=== PATIENT | female | born 1980 | race Caucasian/White ===

== ENCOUNTER → 2019-10-02 09:25 | Outpatient (BNVA) | payer MEDICAID, SELFPAY | PROVIDERS: Family Provider Internal Medicine; PCP Internal Medicine; Visit Provider Nurse Practitioner Women's Health | DX: Z01.419 Encounter for gynecological examination (general) (routine) without abnormal findings; Z12.39 Encounter for other screening for malignant neoplasm of breast | CPT/HCPCS: 88175 ==

== ENCOUNTER → 2020-01-29 07:48 | Outpatient (BNVA) | payer MEDICAID, SELFPAY | PROVIDERS: Family Provider Internal Medicine; PCP Internal Medicine; Referring Provider Orthopaedic Surgery; Visit Provider Specialist | DX: M79.7 Fibromyalgia (principal); G24.9 Dystonia, unspecified; N62 Hypertrophy of breast; G54.0 Brachial plexus disorders | CPT/HCPCS: 87491; 87591; 87661; 99204; 99205 ==

== ENCOUNTER 2020-02-12 14:37 | Outpatient (CLI) | payer MEDICAID, SELFPAY ==
--- NOTE | 2020-02-12 14:44 | MR_ITS ---
WS: [id number] MRI brachial plexus, noncontrast. HISTORY: Fibromyalgia. Chest tightness. Multiplanar, multisequence imaging is performed through the brachial plexus. Mild straightening of the normal cervical lordosis. At C6-7 there is a focal disc protrusion centrall y which may be encroaching upon the ventral cervical cord. Mild stenosis likely. No inferior displace ment of cerebellar tonsils. No fractures. There is a symmetric appearance to the nerve roots exiting from the cervical spine and extending through the soft tissue of the upper thorax toward the extremit ies. No displacement of the nerve roots are clumped. There is no mass or signal abnormality. Just pos terior to the LEFT clavicle is a mass of mixed signal intensity measuring 12 mm. There is a soft tiss ue nodule in this location noted on a prior CT from 2016 of a similar dimension. Probably representin g a small benign lymph node. MR/MR brachialplexus wo con [id number] IMPRESSION: 1. No soft tissue mass in the region of the brachial plexus. 2. Central disc protrusion at C6-7 slightly encroaching upon the ventral cervic al cord.
== END 2020-02-12 14:38 | disposition home or self-care (01) ==
LOC: RADSHAW 14:39
PROVIDERS: Family Provider Internal Medicine; PCP Internal Medicine; Visit Provider Specialist
DX: M79.7 Fibromyalgia (principal); R07.89 Other chest pain; M50.223 Other cervical disc displacement at C6-C7 level
CPT/HCPCS: 71550; 87070; 87106; 87205

== ENCOUNTER → 2020-03-17 11:03 | Outpatient (BNVA) | payer MEDICAID, SELFPAY | PROVIDERS: Family Provider Internal Medicine; PCP Internal Medicine; Visit Provider Specialist | DX: G56.02 Carpal tunnel syndrome, left upper limb (principal); R20.0 Anesthesia of skin; R20.2 Paresthesia of skin | CPT/HCPCS: 95886; 95909; 99213 ==

== ENCOUNTER 2020-05-02 07:56 | Outpatient (CLI) | payer MEDICAID, SELFPAY ==
--- NOTE | 2020-05-02 08:02 | MM_ITS ---
WS: [id number] BILATERAL DIGITAL SCREENING MAMMOGRAPHY WITH CAD CLINICAL INFORMATION: SCREENING HISTORY: Screening mammogram. No current complaints. COMPARISON: 2018 TECHNIQUE: Bilateral CC and MLO views. FINDINGS: Scattered fibroglandular densities bilaterally. No suspicious focal mass, asymmetry, calcifications, or architectural distortion. No evidence of malignancy. MM/[place] [id number] IMPRESSION: BI-RADS: 1-Negative FOLLOW UP: 1 Year Follow-up Recommend return to annual screening mammography.
== END 2020-05-02 07:57 | disposition home or self-care (01) ==
LOC: RADSHAW 07:59
PROVIDERS: PCP Internal Medicine; Visit Provider Internal Medicine
DX: Z12.31 Encounter for screening mammogram for malignant neoplasm of breast (principal)
CPT/HCPCS: 77067

== ENCOUNTER → 2020-05-16 09:42 | Outpatient (BNVA) | payer MEDICAID, SELFPAY | PROVIDERS: PCP Internal Medicine; Visit Provider Orthopaedic Surgery | DX: Z01.812 Encounter for preprocedural laboratory examination (principal); G56.02 Carpal tunnel syndrome, left upper limb | CPT/HCPCS: 87635 ==

== ENCOUNTER 2020-05-22 05:59 | Day surgery (SDC) | payer MEDICAID, SELFPAY ==
[2020-05-21 15:33] VITALS: BMI 32.3
[2020-05-22] VITALS (7 sets, daily range): BP systolic 124–133; BP diastolic 69–94; PULSE 78–91; RESP 16–20; TEMP 36.1–36.5; O2SAT 99–100
--- NOTE | 2020-05-22 07:03 | W.PM.OPSUD ---
Surgery/Procedure H&P Update DATE OF PROCEDURE: May 22, 2020 DATE H&P PERFORMED: 05/06/20 PREOP DIAGNOSIS: Carpal tunnel syndrome left wrist PLANNED PROCEDURE: Operation Date: 05/22/20 07:50 Proposed Procedures p left Carpal Tunnel Release 05550 G56.02(Left) - Gustabo Holder MD
[2020-05-22] MEDS: sodium chloride 0.9% 1,000 ML 30 ML IV (07:10)
[2020-05-22 07:25] LABS: OR HCG Qualitative Urine Negative (Negative)
--- NOTE | 2020-05-22 07:31 | ANES.PREANE2 ---
Pre-Anesthetic Assessment Pre-Anesthetic Assessment: Height/Weight: Height 1.35 m Weight 58.513 kg Temp Pulse Resp BP Pulse Ox 97 F L 91 18 124/77 99 05/22/20 07:18 05/22/20 07:18 05/22/20 07:18 05/22/20 07:18 05/22/20 07:18 Preop Diagnosis: Carpal tunnel syndrome left wrist Proposed Procedure: Operation Date: 05/22/20 07:50 Proposed Procedures p left Carpal Tunnel Release [id number] G56.02(Left) - Gustabo Holder MD Was Beta Colleen taken within 24 hours: Yes Was Clonidine taken within 24 hours: N/A Last intake: Intake Last Liquid Date 05/21/20 Last Liquid Time 20:00 Last Solid Date 05/21/20 Last Solid Time 20:00 Social: Social History: No alcohol and No tobacco Exam: Pre-Anes Outpt Exam: alert, oriented x 3, clear to auscultation bilaterally and regular rate & rhythm Airway: Cervical ROM: Other (limited with very small mouth opening ) MP: 3 History/ROS: No significant history except as noted Pulmonary: Pulmonary: Asthma CV/HEM: CV/HEM: HTN : : None reported Hepatic: Hepatic: None reported GI: GI: GERD Musc/skel: Musc/skel: None reported Neuropsych: Neuropsych: Anxiety Anesthetic Plan: ASA status: 2 Anesthesia: Regional (specify below) Meds/Allergies Current Medications: Current Medications Generic Name Dose Route Start Last Admin Trade Name Freq PRN Reason Stop Dose Admin Sodium Chloride 1,000 mls @ 30 ml s/hr 05/22/20 06:30 05/22/20 07:10 Sodium Chloride 0.9% IV 05/23/20 06:29 30 mls/hr .Q24H ALTAGRACIA Administration PFSH Anesthesia PFSH: Medical History Accelerated essential hypertension Dwarfism Fibromyalgia Vision loss of left eye Surgical History History of myringotomy History of tonsillectomy and adenoidectomy Family History Mother Diabetes Stroke Hypertension Breast cancer mother-- dx'd at 58 y/o Family/Other Breast cancer Maternal aunt Social History Smoking and tobacco status: never smoked Alcohol intake: never Data Anesthesia Other Labs: Laboratory Results - last 48 hr 05/22/20 07:23 Urine HCG, Qual Negative Cardiac Studies: No Data to Display
[2020-05-22] MEDS: clindamycin 900 MG/50 ML PREMIX 100 MG IV (08:45)
--- NOTE | 2020-05-22 09:29 | PM.OP ---
Operative Report Date of procedure: May 22, 2020 Pre-op Diagnosis: Carpal tunnel syndrome left wrist Post-op diagnosis: same Post-op Findings: Same Procedure Done: Left carpal tunnel release Pathology: none sent Surgeon: Gustabo Holder Anesthesia: Nerve Block ([place] block) Estimated blood loss (mL): 5 Tourniquet time (min): 19 Complications: None Findings: No masses or space-occupying lesions were seen within the left carpal tunnel Condition: stable Procedure: Patient was taken to the operating room and anesthesia provided by the anesthesia service. She was prepped and draped with the arm exposed. A timeout was performed. A 3 cm long incision was made in line with the fourth ray from the distal edge of the carpal tunnel extending proximally. The subcutaneous fat and palmar fascia was divided with a scalpel blade. Under loupe magnification the ulnar neurovascular bundle was identified distally. A hemostat could be passed under the transverse carpal ligament allowing the distal 25% to be divided. A slotted guide was then passed beneath the transverse carpal ligament and the middle 50% divided. Blunt scissors were then passed over the guide freeing the proximal ligament. The tourniquet was deflated. Hemostasis provided with electrocautery. Wound edges were infiltrated with 10 cc of a half percent Marcaine solution. Skin edges were reapproximated with 3-0 Prolene. Sterile dressings were applied. The patient was taken to the recovery room in stable condition
--- NOTE | 2020-05-22 13:33 | ANE.PACU2 ---
Inpatient post-anesthesia follow up: Airway intact: Yes Vital signs: Temperature 97.5 F Pulse Rate 86 Respiratory Rate 18 Blood Pressure 126/76 Pulse Oximetry 99 Oxygen Delivery Me thod Room Air Oxygen Flow Rate Fraction of Inspir ed Oxygen Hydration adequate: Yes Nausea and vomiting: No Pain level: 2 Mental status: Baseline
== END 2020-05-22 11:03 | disposition home or self-care (01) ==
PROVIDERS: Anesthesiology; PCP Internal Medicine; Visit Provider Orthopaedic Surgery
PROC: (CPT 64721; principal; 2020-05-22 07:40)
DX: G56.02 Carpal tunnel syndrome, left upper limb (principal); I10 Essential (primary) hypertension; K21.9 Gastro-esophageal reflux disease without esophagitis; F41.9 Anxiety disorder, unspecified; M79.7 Fibromyalgia; Z82.49 Family history of ischemic heart disease and other diseases of the circulatory system; Z83.3 Family history of diabetes mellitus; Z82.3 Family history of stroke
CPT/HCPCS: 64721; 81025; 84703; J2250; J2704; J3490; J7030

== ENCOUNTER 2020-06-04 11:12 | Outpatient (CLI) | payer MEDICAID, SELFPAY | END 2020-06-04 11:13 | disposition home or self-care (01) | LOC: SPT 11:26 | PROVIDERS: PCP Internal Medicine; Visit Provider Orthopaedic Surgery | DX: Z46.89 Encounter for fitting and adjustment of other specified devices (principal); G56.02 Carpal tunnel syndrome, left upper limb | CPT/HCPCS: L3908 ==

== ENCOUNTER → 2020-06-19 12:04 | Outpatient (BNVA) | payer MEDICAID, SELFPAY | PROVIDERS: PCP Internal Medicine; Visit Provider Nurse Practitioner Women's Health | DX: N89.8 Other specified noninflammatory disorders of vagina (principal); Z30.42 Encounter for surveillance of injectable contraceptive | CPT/HCPCS: 87070; 87106; 87205 ==

== ENCOUNTER → 2020-08-19 09:46 | Outpatient (BNVA) | payer MEDICAID, SELFPAY | PROVIDERS: PCP Internal Medicine; Visit Provider Nurse Practitioner Family | DX: Z20.822 Contact with and (suspected) exposure to COVID-19 (principal) | CPT/HCPCS: 87635 ==

== ENCOUNTER → 2020-09-04 13:51 | Outpatient (BNVA) | payer MEDICAID, SELFPAY | PROVIDERS: PCP Internal Medicine; Visit Provider Nurse Practitioner Women's Health | DX: N76.3 Subacute and chronic vulvitis (principal); Z30.42 Encounter for surveillance of injectable contraceptive | CPT/HCPCS: 87070; 87106; 87205 ==

== ENCOUNTER → 2020-10-06 10:25 | Outpatient (BNVA) | payer MEDICAID, SELFPAY | PROVIDERS: PCP Internal Medicine; Visit Provider Nurse Practitioner Psychiatric/Mental Health | DX: F41.9 Anxiety disorder, unspecified (principal); F33.1 Major depressive disorder, recurrent, moderate | CPT/HCPCS: 99215 ==

== ENCOUNTER → 2020-10-28 12:13 | Outpatient (BNVA) | payer MEDICAID, SELFPAY | PROVIDERS: PCP Internal Medicine; Visit Provider Specialist | DX: G81.14 Spastic hemiplegia affecting left nondominant side (principal) | CPT/HCPCS: 99214 ==

== ENCOUNTER 2020-10-31 09:02 | Emergency (ER) | payer MEDICAID, SELFPAY ==
[2020-10-31 09:11] VITALS: BP 116/82; PULSE 120; RESP 20; TEMP 36.8; O2SAT 98; BMI 37.5
--- NOTE | 2020-10-31 09:43 | ECG_ITS ---
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1980 Requested By: Hunter Willett Order Number: [id number] Reading MD: BETHANY GRIMES Measurements Intervals [place] Rate: 105 P: 14 WA: 112 QRS: -33 QRSD: 102 T: 49 QT: 353 QTc: 467 Interpretive Statements SINUS TACHYCARDIA WITH SHORT WA INTERVAL LEFT AXIS DEVIATION [QRS AXIS < -30] INCOMPLETE RIGHT BUNDLE BRANCH BLOCK [90+ ms QRS DURATION, TERMINAL R IN V1/V2, 40+ ms S IN I/aVL/V4/V5/V6] MINIMAL ST DEPRESSION [0.025+ mV ST DEPRESSION] No previous ECG available for comparison Electronically Signed On 10-31-2020 15:40:50 CDT by BETHANY GRIMES [id number] f
--- NOTE | 2020-10-31 09:43 | XR_ITS ---
WS: [id number] Portable AP upright chest, 10/31/2020 Clinical Data: dyspnea/cough Comparison: PA and lateral chest, 09/16/2014. Findings: No nodules, masses or effusions are seen. The heart is normal. The pulmonary vascularity is not increased. No pneumonia or pneumothorax is seen. Monitor leads are on the chest wall. XR/XR chest 1V portable [id number] Impression: Negative chest.
[2020-10-31 09:54] VITALS: BP 122/91; PULSE 103; O2SAT 96
--- NOTE | 2020-10-31 09:56 | W.ED.SOB ---
HPI - SOB/Dyspnea General: Chief Complaint: Shortness of Breath/Dyspnea Stated Complaint: Difficulty breathing, Lower back pain Time Seen by Provider: 10/31/20 09:04 History of Present Illness: HPI Narrative: 40 yo female with dyposena nd midlly productive cough for the last 5-6 days. He is also complaining some low back pain worse when she coughs or takes a deep breath. She is not had any chest pain. She denies any hematuria she has had some dysuria. She also has complained of some loose stools. MD elicited complaint: shortness of breath and cough Onset (ago): day(s) (5-6) Timing: intermittent Exacerbating factors: nothing Relieving factors: nothing Associated symptoms: Reports cough, fever(s) (Subjective) and nausea; Deny abdominal pain, chest congestion, chest pain, diaphoresis, dizziness, extremity pain, hemoptysis, lightheadedness, myalgias, orthopnea, palpitations, paresthesias, polydipsia, polyuria, rash, sense of impending doom, syncope or vomiting Treatment prior to arrival: none Review of Systems Const: Reports: fever(s) (Subjective); Denies: diaphoresis ENMT: Denies: throat pain, ear or mastoid pain, nasal discharge or nasal congestion Card: Denies: chest pain, palpitations, lightheadedness, syncope or orthopnea Resp: Denies: hemoptysis or chest congestion GI: Reports: nausea; Denies: abdominal pain or vomiting : Denies: flank pain, difficulty voiding, dysuria, urinary frequency or urinary urgency Musc: Denies: extremity pain Skin/Breast: Denies: rash or pruritus Neuro: Denies: dizziness Endo: Denies: polyuria or polydipsia PFSH ED PFSH: Medical History Accelerated essential hypertension Bicornuate uterus Dwarfism Fibromyalgia Major depressive disorder, recurrent, moderate Aletta reported on her history form that she cries easily, sweating palms, fatigue, bad dreams, the mind goes blank, difficulty concentrating, trouble sleeping, easily annoyed and irritability, loss of sexual desire, loss of sexual functioning, nervous feeling, excessive worries and fears, excessive fears of crowds, and change in personality. Vision loss of left eye Surgical History History of bilateral breast reduction surgery 08/27/20 [place], [place]. Dr. Alcaraz. History of carpal tunnel surgery of left wrist 2020 - [place], [place] Dr. Holder. History of myringotomy History of tonsillectomy and adenoidectomy Family History Mother Diabetes Stroke Hypertension Breast cancer mother-- dx'd at 58 y/o Family/Other Breast cancer Maternal aunt Social History Smoking and tobacco status: never smoked Physical Exam Const: COMMON NORMALS: no acute distress GENERAL APPEARANCE: cooperative and comfortable ORIENTATION/CONSCIOUSNESS: Yes awake, Yes oriented to person, Yes oriented to place and Yes oriented to time HENMT: COMMON NORMALS: normocephalic, atraumatic, hearing grossly normal bilaterally, external ears normal, EAC's normal, TM's normal bilaterally, Normal nasal mucous membranes and turbinates present, moist oral mucous membranes and oropharynx normal HEAD & SCALP: normocephalic and atraumatic NOSE: Normal nasal mucous membranes and turbinates present EXTERNAL EAR: Yes external ears normal EXTERNAL AUDITORY CANAL: EAC's normal TYMPANIC MEMBRANE: TM's normal bilaterally Eye: COMMON NORMALS: Equal, round and reactive pupils present, EOMs intact bilaterally, conjunctivae normal and no scleral icterus CONJUNCTIVA: Yes conjunctivae normal PUPIL: Yes Equal, round and reactive pupils present Neck/C-Spine: COMMON NORMALS: full ROM, no lymphadenopathy, supple and no JVD Lymph: LYMPHATIC: no lymphadenopathy noted and no lymphedema noted Resp: COMMON NORMALS: normal respiratory effort, No retractions, No use of accessory muscles and clear to auscultation bilaterally AUSCULTATION: clear to auscultation bilaterally Cardio: COMMON NORMALS: no JVD, regular rate, regular rhythm and No murmurs present (Cardio) RATE: regular rate RHYTHM: regular rhythm GI: COMMON NORMALS: Soft to palpation and No hepatosplenomegaly present AUSCULTATION: Yes normoactive bowel sounds PALPATION: Yes Soft to palpation, No Tenderness to palpation present (GI), No Guarding due to palpation present (GI) and Yes No hepatosplenomegaly present Extremity: COMMON NORMALS: normal to inspection, capillary refill normal, no clubbing, cyanosis or edema, no calf tenderness and no pedal edema Neuro: SENSORIUM/ORIENTATION: Yes oriented to person, Yes oriented to place and Yes oriented to time Skin: COMMON NORMALS: no rashes or lesions noted GENERAL SKIN EXAM: no rashes or lesions noted Course Vital Signs: Vital signs: Vital Signs Temperature 98.3 F 10/31/20 09:11 Pulse Rate 98 10/31/20 13:08 Respiratory Rate 20 H 10/31/20 09:11 Blood Pressure 91/58 10/31/20 13:08 Pulse Oximetry 99 10/31/20 13:08 MDM - SOB/Dyspnea MDM Narrative: Medical decision making narrative: Labs imaging and EKG reviewed as on the chart. Him started on doxycycline 100 p.o. twice daily LB continue albuterol as needed she is not sending Covid PCR. Chest x-ray did not show anything acute. UA was also negative. Rapid antigen was negative. She has any worsening change symptoms return. Lab Data: Labs: Lab Results 10/31/20 10/31/20 10/31/20 09:50 09:50 09:50 WBC 11.7 10^3/uL H 10 ^3/uL (4.0-10.0) RBC 4.27 10^6/uL 10^6 /uL (4.1-5.3) Hgb 13.4 g/dL g/dL (11.5-15.3) Hct 40.0 % % (37.0-47.0) MCV 93.7 fl fl (81-99) MCH 31.4 pg pg (28.0-34.0) MCHC 33.5 g/dL g/dL (30.0-36.0) RDW 15.0 % % (12.1-15.1) Plt Count 509 10^3/cmm H 10 ^3/cmm (130-400) MPV 10.2 fL fL (7.4-10.4) Neut % (Auto) 68.9 % % Lymph % (Auto) 20.4 % % [place] % (Auto) 7.4 % % Eos % (Auto) 1.6 % % Baso % (Auto) 0.7 % % Neut # (Auto) 8.06 10^3/uL H 10 ^3/uL (1.8-7.7) Lymph # (Auto) 2.4 10^3/uL 10^3/ uL (0.8-4.8) [place] # (Auto) 0.9 10^3/uL 10^3/ uL (0.2-0.9) Eos # (Auto) 0.2 10^3/uL 10^3/ uL (0.0-0.8) Baso # (Auto) 0.1 10^3/uL 10^3/ uL (0.0-0.1) Nucleated RBC % (a uto) 0 % % Nucleated RBCs # 0.0 /100WBC /100W BC Sodium 137 mmol/L mmol/L (136-145) Potassium 3.5 mmol/L mmol/L (3.5-5.1) Chloride 101 mmol/L mmol/L (98-107) Carbon Dioxide 22 mmol/L mmol/L (22-29) Anion Gap 17.5 (5-19) BUN 13 mg/dL mg/dL (6-20) Creatinine 0.7 mg/dL mg/dL (0.5-0.9) GFR Calculation 92.2 mL/min mL/mi n (90-130) Glucose 81 mg/dL mg/dL (65-115) Calculated Osmolal ity 283 mOsm/kg L mOs m/kg (285-295) Calcium 9.4 mg/dL mg/dL (8.5-10.5) Total Bilirubin 0.4 mg/dL mg/dL (0.15-1.2) AST 17 U/L U/L (0-32) ALT 15 U/L U/L (0-33) Alkaline Phosphata se 173 IU/L H IU/L (35-105) Creatine Kinase 71 U/L U/L (26-192) Troponin T Baselin e 6 ng/L ng/L (0-10) Troponin T 120 Min [place] Delta Troponin T Total Protein 8.3 g/dL g/dL (6.6-8.7) Albumin 4.3 g/dL g/dL (3.5-5.2) Globulin 4.0 g/dL g/dL (1.3-4.6) Urine Color Urine Appearance Urine pH Ur Specific Gravit y Urine Protein Urine Glucose (UA) Urine Ketones Urine Blood Urine Nitrate Urine Bilirubin Urine Urobilinogen Ur Leukocyte Iwona ase Urine RBC Urine WBC Ur Squamous Epith Cells Amorphous Sediment Urine Bacteria 10/31/20 10/31/20 11:26 12:18 WBC RBC Hgb Hct MCV MCH MCHC RDW Plt Count MPV Neut % (Auto) Lymph % (Auto) [place] % (Auto) Eos % (Auto) Baso % (Auto) Neut # (Auto) Lymph # (Auto) [place] # (Auto) Eos # (Auto) Baso # (Auto) Nucleated RBC % (a uto) Nucleated RBCs # Sodium Potassium Chloride Carbon Dioxide Anion Gap BUN Creatinine GFR Calculation Glucose Calculated Osmolal ity Calcium Total Bilirubin AST ALT Alkaline Phosphata se Creatine Kinase Troponin T Baselin e Troponin T 120 Min [place] 6.00 ng/L ng/L (0-10) Delta Troponin T 0 ABS# ABS# (0-10) Total Protein Albumin Globulin Urine Color Straw (Yellow) Urine Appearance Clear (CLEAR) Urine pH 5 (5-7) Ur Specific Gravit y 1.005 (1.005-1.030) Urine Protein Neg (Negative) Urine Glucose (UA) Norm (Normal) Urine Ketones Negative (Negative) Urine Blood 2+ H (Negative) Urine Nitrate Negative (Negative) Urine Bilirubin Neg (Negative) Urine Urobilinogen Norm mg/dL mg/dL (Negative) Ur Leukocyte Iwona ase Negative (Negative) Urine RBC 0-4 /hpf H /hpf (0-2) Urine WBC Not Reportable Ur Squamous Epith Cells 5-10 /hpf H /hpf (0-5) Amorphous Sediment Not Reportable Urine Bacteria Not Reportable Discharge Plan Discharge Patient Disposition: Home Clinical Impression: Bronchitis Condition: Stable Prescriptions: New doxycycline hyclate 100 mg capsule 100 mg PO BID 10 Days Qty: 20 RF: 0 albuterol sulfate 90 mcg/actuation HFA aerosol inhaler 2 inh INHALATION Q4H PRN (Reason: shortness of breath or wheezing) Qty: 18 RF: 0 No Action montelukast 10 mg tablet 10 mg PO DAILY RF: 0 pregabalin [Lyrica] 150 mg capsule 150 mg PO BID RF: 0 Symbicort 80-4.5 mcg/actuation HFA aerosol inhaler 2 puff INHALATION BID RF: 0 albuterol sulfate [ProAir HFA] 90 mcg/actuation HFA aerosol inhaler 2 puff INHALATION .QID PRN RF: 0 acetaminophen-codeine 300-30 mg tablet 1 tab PO BID PRN (Reason: Pain) RF: 0 omeprazole 20 mg capsule,delayed release(DR/EC) 20 mg PO DAILY RF: 0 lisinopril-hydrochlorothiazide 10-12.5 mg tablet 1 tab PO DAILY RF: 0 duloxetine 30 mg capsule,delayed release(DR/EC) 60 mg PO DAILY Qty: 60 RF: 1 hydroxyzine pamoate 25 mg capsule 25 mg PO BID PRN (Reason: anxiety) Qty: 30 RF: 1 estradiol 0.5 mg tablet 0.5 mg PO DAILY Qty: 90 RF: 3 medroxyprogesterone 150 mg/mL syringe See Rx Instructions .ROUTE .COMPLEX Qty: 1 RF: 0 Discharge Orders: Discharge ED (Routine); Ordered 10/31/20 Ordered By: Hunter Leija Referrals: Jorge Luis Nuñez DO [Primary Care Provider] - Patient Instructions: Opioid Safety Activity Restrictions/Additional Instructions: I Covid PCR (send out test) is still pending. Start antibiotics. If you worsen or change symptoms return. Coding Level of Care Code ED [employer] Representative for [place] Fwd Exam Comprehensive
[2020-10-31 09:57] LABS: Basophils # 0.1 10^3/uL (0.0-0.1); Basophils % 0.7 %; Eosinophils # 0.2 10^3/uL (0.0-0.8); Eosinophils % 1.6 %; Hemoglobin 13.4 g/dL (11.5-15.3); Lymphocytes # 2.4 10^3/uL (0.8-4.8); Lymphocytes % 20.4 %; Mean Corpuscular HGB Conc 33.5 g/dL (30.0-36.0); Mean Corpuscular Hemoglobin 31.4 pg (28.0-34.0); Mean Corpuscular Volume 93.7 fl (81-99); Mean Platelet Volume 10.2 fL (7.4-10.4); Monocytes # 0.9 10^3/uL (0.2-0.9); Monocytes % 7.4 %; Neutrophils # 8.06 10^3/uL (1.8-7.7); Neutrophils % 68.9 %; Nucleated Red Blood Cells % 0 %; Platelet Count 509 10^3/cmm (130-400); Red Blood Count 4.27 10^6/uL (4.1-5.3); White Blood Count 11.7 10^3/uL (4.0-10.0)
[2020-10-31 10:16] LABS: Alanine Aminotransferase 15 U/L (0-33); Albumin Level 4.3 g/dL (3.5-5.2); Alkaline Phosphatase 173 IU/L (35-105); Anion Gap 17.5 (5-19); Aspartate Amino Transferase 17 U/L (0-32); Blood Urea Nitrogen 13 mg/dL (6-20); Calcium 9.4 mg/dL (8.5-10.5); Carbon Dioxide 22 mmol/L (22-29); Chloride 101 mmol/L (98-107); Creatine Phosphokinase 71 U/L (26-192); Creatinine Clr Calc Pharmacy 113.6008; Glomerular Filtration Rate 92.2 mL/min (90-130); Glucose 81 mg/dL (65-115); Osmolality Calculated 283 mOsm/kg (285-295); Potassium 3.5 mmol/L (3.5-5.1); Sodium 137 mmol/L (136-145); Total Bilirubin 0.4 mg/dL (0.15-1.2); Total Protein 8.3 g/dL (6.6-8.7)
[2020-10-31 10:17] LABS: Troponin(5th) Baseline 6 ng/L (0-10)
--- NOTE | 2020-10-31 11:43 | ECG_ITS ---
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1980 Requested By: Hunter Willett Order Number: [id number] Reading MD: BETHANY GRIMES Measurements Intervals [place] Rate: 89 P: 31 MD: 133 QRS: 76 QRSD: 99 T: 2 QT: 371 QTc: 453 Interpretive Statements SINUS RHYTHM WITH SINUS ARRHYTHMIA LOW QRS VOLTAGE IN PRECORDIAL LEADS [QRS DEFLECTION < 1.0 mV IN CHEST LEADS] INCOMPLETE RIGHT BUNDLE BRANCH BLOCK [90+ ms QRS DURATION, TERMINAL R IN V1/V2, 40+ ms S IN I/aVL/V4/V5/V6] Compared to ECG 10/31/2020 09:34:32 Low QRS voltage now present Sinus tachycardia no longer present Short MD interval no longer present Left-axis deviation no longer present ST (T wave) deviation no longer present Electronically Signed On 10-31-2020 15:42:13 CDT by BETHANY GRIMES [id number]
[2020-10-31 11:58] VITALS: BP 103/73; PULSE 93; O2SAT 97
[2020-10-31 12:25] LABS: Bilirubin Urine Neg (Negative); Blood Urine 2+ (Negative); Glucose Urine UA Norm (Normal); Ketones Urine Negative (Negative); Nitrate Urine Negative (Negative); Protein Urine Neg (Negative); Specific Gravity, Urine 1.005 (1.005-1.030); Urine Appearance Clear (CLEAR); Urine Color Straw (Yellow); pH Urine 5 (5-7)
[2020-10-31 12:26] LABS: Add Urine Culture? No; Add Urine Microscopic? YES; Leukocyte Esterase Urine Negative (Negative); RBC Urine 0-4 /hpf (0-2); Urobilinogen Urine Norm (Negative)
[2020-10-31 12:42] LABS: Troponin 5 2HR Delta 0 ABS# (0-10)
[2020-10-31 13:08] VITALS: BP 91/58; PULSE 98; O2SAT 99
[2020-11-01 19:41] LABS: Quest SARS-CoV-2 RNA NOT DETECTED (NOT DETECTED)
== END 2020-10-31 13:10 | disposition home or self-care (01) ==
PROVIDERS: Emergency Provider Family Medicine; PCP Internal Medicine
DX: J40 Bronchitis, not specified as acute or chronic (principal); I10 Essential (primary) hypertension; Z20.822 Contact with and (suspected) exposure to COVID-19
CPT/HCPCS: 71045; 80053; 81001; 82550; 84484; 85025; 87635; 93005; 99283

== ENCOUNTER → 2020-11-03 07:33 | Outpatient (BNVA) | payer MEDICAID, SELFPAY | PROVIDERS: PCP Internal Medicine; Visit Provider Nurse Practitioner Psychiatric/Mental Health | DX: F41.9 Anxiety disorder, unspecified (principal); F33.1 Major depressive disorder, recurrent, moderate; G80.9 Cerebral palsy, unspecified | CPT/HCPCS: 99213 ==

== ENCOUNTER → 2020-11-13 10:50 | Outpatient (BNVA) | payer MEDICAID, SELFPAY | PROVIDERS: PCP Internal Medicine; Referring Provider Specialist; Visit Provider Specialist | DX: G81.14 Spastic hemiplegia affecting left nondominant side (principal); G24.8 Other dystonia | CPT/HCPCS: 64642; J0585 ==

== ENCOUNTER → 2020-12-01 07:39 | Outpatient (BNVA) | payer MEDICAID, SELFPAY | PROVIDERS: PCP Internal Medicine; Visit Provider Counselor Professional | DX: F33.1 Major depressive disorder, recurrent, moderate (principal); F41.9 Anxiety disorder, unspecified; G80.9 Cerebral palsy, unspecified | CPT/HCPCS: 90834 ==

== ENCOUNTER → 2020-12-15 08:48 | Outpatient (BNVA) | payer MEDICAID, SELFPAY | PROVIDERS: PCP Internal Medicine; Visit Provider Nurse Practitioner Psychiatric/Mental Health | DX: F33.1 Major depressive disorder, recurrent, moderate (principal); F41.9 Anxiety disorder, unspecified; G80.9 Cerebral palsy, unspecified | CPT/HCPCS: 99213 ==

== ENCOUNTER → 2021-01-20 08:00 | Outpatient (BNVA) | payer MEDICAID, SELFPAY | PROVIDERS: PCP Internal Medicine; Visit Provider Counselor Professional | DX: F33.1 Major depressive disorder, recurrent, moderate (principal); F41.9 Anxiety disorder, unspecified | CPT/HCPCS: 90834 ==

== ENCOUNTER → 2021-02-09 08:04 | Outpatient (BNVA) | payer MEDICAID, SELFPAY | PROVIDERS: PCP Internal Medicine; Visit Provider Counselor Professional | DX: F33.1 Major depressive disorder, recurrent, moderate (principal); F41.9 Anxiety disorder, unspecified; G80.9 Cerebral palsy, unspecified | CPT/HCPCS: 90832 ==

== ENCOUNTER → 2021-02-23 07:49 | Outpatient (BNVA) | payer MEDICAID, SELFPAY | PROVIDERS: PCP Internal Medicine; Visit Provider Counselor Professional | DX: F33.1 Major depressive disorder, recurrent, moderate (principal); F41.9 Anxiety disorder, unspecified; G80.9 Cerebral palsy, unspecified | CPT/HCPCS: 90834 ==

== ENCOUNTER → 2021-03-05 09:15 | Outpatient (BNVA) | payer MEDICAID, SELFPAY | PROVIDERS: PCP Internal Medicine; Visit Provider Internal Medicine Pulmonary Disease | DX: Z20.822 Contact with and (suspected) exposure to COVID-19 (principal); Z01.812 Encounter for preprocedural laboratory examination | CPT/HCPCS: 87635 ==

== ENCOUNTER → 2021-03-09 07:12 | Outpatient (BNVA) | payer MEDICAID, SELFPAY | PROVIDERS: PCP Internal Medicine; Visit Provider Counselor Professional | DX: F33.1 Major depressive disorder, recurrent, moderate (principal); F41.9 Anxiety disorder, unspecified; G80.9 Cerebral palsy, unspecified | CPT/HCPCS: 90832 ==

== ENCOUNTER 2021-03-11 09:18 | Outpatient (CLI) | payer MEDICAID, SELFPAY ==
--- NOTE | 2021-03-11 11:22 | PFTS_ITS ---
Date of Study:03/11/21 Date of Dictation: 03/19/2021 MECHANICS: Postbronchodilator forced vital capacity (FVC) is reduced. Postbronchodilator forced expiratory volume in one second (FEV1) is moderately reduced 52%. FEV1/FVC is reduced. -There is no significant bronchodilator response FLOW VOLUME LOOP: Sloping of expiratory limb suggestive of severe airway obstruction LUNG VOLUMES: Total lung capacity (TLC) is normal. Residual volume (RV) is increased suggestive of moderate air trapping. DIFFUSING CAPACITY FOR CARBON MONOXIDE: Normal . INTERPRETATION: The prebronchodilator spirometry consistent with moderate obstruction. There is no significant airway obstruction. Lung volumes suggestive of moderate air trapping. There is normal gas transfer. Clinical correlation recommended. [facility]
--- NOTE | 2021-03-11 11:22 | PFTS_ITS ---
Date of Study:03/25/21 Date of Dictation: 03/25/2021 MECHANICS: Postbronchodilator forced vital capacity (FVC) is reduced. Postbronchodilator forced expiratory volume in one second (FEV1) is moderately reduced 52%. FEV1/FVC is reduced. -There is no significant bronchodilator response FLOW VOLUME LOOP: Sloping of expiratory limb suggestive of severe airway obstruction LUNG VOLUMES: Total lung capacity (TLC) is normal. Residual volume (RV) is increased suggestive of moderate air trapping. DIFFUSING CAPACITY FOR CARBON MONOXIDE: Normal . INTERPRETATION: The prebronchodilator spirometry consistent with moderate obstruction.? There is no significant airway obstruction.? Lung volumes suggestive of moderate air trapping.? There is normal gas transfer.? Clinical correlation recommended. MTDD
== END 2021-03-11 09:19 | disposition home or self-care (01) ==
PROVIDERS: PCP Internal Medicine; Visit Provider Internal Medicine Pulmonary Disease
DX: J45.909 Unspecified asthma, uncomplicated (principal); G81.14 Spastic hemiplegia affecting left nondominant side
CPT/HCPCS: 64642; 94060; 94726; 94729; J0585; J7611

== ENCOUNTER → 2021-03-17 07:26 | Outpatient (BNVA) | payer MEDICAID, SELFPAY | PROVIDERS: PCP Internal Medicine; Visit Provider Nurse Practitioner Psychiatric/Mental Health | DX: F33.1 Major depressive disorder, recurrent, moderate (principal); F41.9 Anxiety disorder, unspecified; G80.9 Cerebral palsy, unspecified | CPT/HCPCS: 99213 ==

== ENCOUNTER 2021-03-19 09:45 | Outpatient (CLI) | payer MEDICAID, SELFPAY ==
--- NOTE | 2021-03-19 10:04 | CT_ITS ---
WS: [id number] CT CHEST WITH INTRAVENOUS CONTRAST HISTORY: CHEST WALL MASS TECHNIQUE: Contiguous 5 mm axial imaging performed on the thorax. Coronal and sagittal reformats are submitted. All CT scans at [facility] use at least one of these dose optimization techniques: automated exposure control; mA and/or kV adjustment per patient size (includes targeted exams where dose is matched to clinical indication); or iterative reconstruction. CONTRAST: Omnipaque 300; 95 mL IV. DLP: 742.97 mGy.cm COMPARISON: 05/19/2015 Lungs and central airway: Normal. Pleura: Normal. No pleural effusion. Heart and pericardium: Normal size heart with no pericardial effusion. Mediastinum and luís: There is numerous small mediastinal and hilar lymph nodes. These lymph nodes ar e all less than a centimeter. Paratracheal, aortopulmonary window and hilar lymph nodes. Vessels: Normal size aortic and pulmonary artery. No coronary artery calcifications. Chest wall and lower neck: There is a large well-circumscribed soft tissue mass centered within the a nterior chest wall at the level of the inferior sternal body and xiphoid. Mass extends greatest to th e LEFT of midline. This is a well-circumscribed mass with distortion of the adjacent subcutaneous sof t tissues. Mass measures 4.7 x 8.2 and extends over length of 6.7 cm. The underlying xiphoid and ster nal body do not appear eroded or destroyed. There is not a lot of soft tissue inflammation. Upper abdomen: Hepatic steatosis. Focal area of low-attenuation in the posterior RIGHT lobe of liver measures 2.2 x 2.5 cm. There is a very small amount of peripheral lung. This may indicate a hemangiom a. This was also present on the study of 05/19/2015 and described. Not significantly increased in size . Gallbladder is negative as visualized. No adrenal mass. Osseous structures: Mild thoracic spondylosis. CT/CT chest w con* [id number] IMPRESSION: 1. Well-circumscribed subcutaneous soft tissue mass in the midline of the infe rior chest wall, level of the distal sternal body and xiphoid. Mass measures 4. 7 x 8.2 x 6.7 cm. Solid mass with no adjacent stranding or soft tissue extensio n. Consider surgical removal. Evaluation by ultrasound to evaluate for vascular ity and/or biopsy may also be performed if necessary. This has not been identif ied on prior studies. Nonspecific and may be benign or malignant. 2. Hepatic hemangioma. 3. Subcentimeter mediastinal and hilar lymph nodes.
[2021-03-19] MEDS: iohexol 300 mg/mL 100 mL Btl IV (10:21)
== END 2021-03-19 09:46 | disposition home or self-care (01) ==
PROVIDERS: PCP Internal Medicine; Visit Provider Internal Medicine
DX: R22.2 Localized swelling, mass and lump, trunk (principal); D18.09 Hemangioma of other sites
CPT/HCPCS: 71260

== ENCOUNTER → 2021-04-10 07:57 | Outpatient (BNVA) | payer MEDICAID, SELFPAY | PROVIDERS: PCP Internal Medicine; Visit Provider Surgery | DX: Z20.822 Contact with and (suspected) exposure to COVID-19 (principal); Z01.812 Encounter for preprocedural laboratory examination | CPT/HCPCS: 87635 ==

== ENCOUNTER → 2021-04-13 08:08 | Outpatient (BNVA) | payer MEDICAID, SELFPAY | PROVIDERS: PCP Internal Medicine; Visit Provider Counselor Professional | DX: F33.1 Major depressive disorder, recurrent, moderate (principal); F41.9 Anxiety disorder, unspecified; G80.9 Cerebral palsy, unspecified | CPT/HCPCS: 90832 ==

== ENCOUNTER 2021-04-16 07:55 | Day surgery (SDC) | payer MEDICAID, SELFPAY ==
[2021-04-15 14:30] VITALS: BMI 37.5
[2021-04-16] VITALS (7 sets, daily range): BP systolic 123–138; BP diastolic 84–98; PULSE 85–118; RESP 18; TEMP 36.2–36.9; O2SAT 98–100
[2021-04-16] MEDS: sodium chloride 0.9% 1,000 ML 30 ML IV (09:17)
[2021-04-16 09:20] LABS: OR HCG Qualitative Urine Negative (Negative)
--- NOTE | 2021-04-16 09:24 | ANES.PREANE2 ---
Pre-Anesthetic Assessment Height/Weight: Height 1.35 m Weight 68.039 kg Temp Pulse Resp BP Pulse Ox 97.2 F L 85 18 133/96 99 04/16/21 08:49 04/16/21 08:49 04/16/21 08:49 04/16/21 08:49 04/16/21 08:49 Preop Diagnosis: Carpal tunnel syndrome left wrist Operation Date: 04/16/21 09:40 Proposed Procedures p Excision Mass/Lesion/Cyst Upper Extremit R22.2/26057(Not Applicable) - Taco Ritter MD Familial anesthetic complications: None Was Beta Colleen taken within 24 hours: N/A Was Clonidine taken within 24 hours: N/A Last intake: Intake Last Liquid Date 04/15/21 Last Liquid Time 21:00 Last Solid Date 04/15/21 Last Solid Time 19:00 Social No alcohol and No tobacco Exam alert, oriented x 3, clear to auscultation bilaterally and regular rate & rhythm Airway Submandibular: within normal limits Cervical ROM: within normal limits Mallampati: Class II Dentition: false Pulmonary Asthma CV/HEM Hypertension GI Gastroesophageal Reflux Disease Neuropsych Anxiety and Depression CP Anesthetic Plan ASA status: 3 Anesthesia: General Risk of > 500 ml blood loss (7ml/kg in children): No Medications/Allergies Home Medications Medication Instructions Recorded Confirmed Last Taken Type albuterol sulfate 90 mcg/actuation 2 puff INHALATION .QID PRN gm 02/28/19 04/16/21 04/15/21 History aerosol inhaler (ProAir HFA) montelukast 10 mg tablet 10 mg PO DAILY 09/04/20 04/16/21 04/15/21 History omeprazole 20 mg capsule,delayed 20 mg PO DAILY 10/06/20 04/16/21 04/15/21 History release estradiol 0.5 mg tablet 0.5 mg PO DAILY #90 tab 10/14/20 04/16/21 04/15/21 Rx medroxyprogesterone 150 mg/mL 150 mg IM .EVERY 90 DAYS #1 ml 11/25/20 04/16/21 04/15/21 Rx intramuscular syringe (Depo-Provera) ipratropium 0.5 mg-albuterol 3 mg 3 ml INHALATION TID ml 11/27/20 04/16/21 04/15/21 History (2.5 mg base)/3 mL nebulization soln losartan 25 mg tablet 25 mg PO DAILY #30 tab 11/27/20 04/16/21 04/15/21 Rx hydroxyzine pamoate 25 mg capsule 25 mg PO BID PRN #30 cap 12/15/20 04/16/21 04/15/21 Rx fluticasone 500 mcg-salmeterol 50 1 inh INHALATION BID #60 ea 01/21/21 04/16/21 04/15/21 Rx mcg/dose blistr powdr for inhalation (Advair Diskus) duloxetine 60 mg capsule,delayed 60 mg PO .q am #30 cap 03/17/21 04/16/21 04/15/21 Rx release Allergies Allergy/AdvReac Type Severity Reaction Status Date / Time blackberry Allergy Unconscious Verified 03/11/21 08:52 Penicillins Allergy ALGY-Rash Verified 03/11/21 08:52 Current Medications Generic Name Dose Route Start Last Admin Trade Name Freq PRN Reason Stop Dose Admin Sodium Chloride 1,000 mls @ 30 mls/hr 04/16/21 08:45 04/16/21 09:17 Sodium Chloride 0.9% IV 04/17/21 08:44 30 mls/hr .Q24H ALTAGRACIA Administration PFS Anesthesia Medical History Accelerated essential hypertension Bicornuate uterus Dwarfism Fibromyalgia Major depressive disorder, recurrent, moderate Aletta reported on her history form that she cries easily, sweating palms, fatigue, bad dreams, the mind goes blank, difficulty concentrating, trouble sleeping, easily annoyed and irritability, loss of sexual desire, loss of sexual functioning, nervous feeling, excessive worries and fears, excessive fears of crowds, and change in personality. Psychiatric care Vision loss of left eye Surgical History History of bilateral breast [facility] Alcar[facility]. History of carpal tunnel surgery of left wrist 2020 - [facility] [place] Dr. Holder. History of myringotomy History of tonsillectomy and adenoidectomy Family History Mother Diabetes Stroke Hypertension Breast cancer mother-- dx'd at 58 y/o Family/Other Breast cancer Maternal aunt Social History Smoking and tobacco status: never smoked Second hand smoke exposure: Yes Data Anesthesia Cardiac Studies: No Data to Display
--- NOTE | 2021-04-16 09:27 | W.PM.OPSUD ---
Surgery/Procedure H&P Update DATE OF PROCEDURE: April 16, 2021 DATE H&P PERFORMED: 03/31/21 H&P UPDATE INFORMATION: No changes to prior documentation PREOP DIAGNOSIS: Subcutaneous mass of anterior chest wall. PLANNED PROCEDURE: Operation Date: 04/16/21 09:40 Proposed Procedures p Excision Mass/Lesion/Cyst chest wall R22.2 - Taco Ritter MD
--- NOTE | 2021-04-16 10:19 | PM.OP ---
Operative Report Date of procedure: April 16, 2021 Pre-op diagnosis: Preop Diagnosis Subcutaneous mass of anterior chest wall. Post-op diagnosis: Same. Procedure done: Excision of subcutaneous mass from anterior chest wall. Specimens removed/disposition: Subcutaneous mass from anterior chest wall. Surgeon: Taco Ritter Anesthesia: General (LMA.) Estimated blood loss (mL): 10 Complications: None. Condition: stable Disposition: PACU Procedure: The patient was brought in the operating room and was placed in a supine position on the operating room table. General anesthesia was induced by means of a laryngeal mask airway. The anterior surface of the chest was prepped and draped in a sterile fashion. A combination of 1% lidocaine with 1 100,000 parts epinephrine and 0.5% bupivacaine was used for local anesthesia throughout the procedure. The patient's subcutaneous chest wall mass was over the left side of the sternum extending towards the lower aspect of the left breast. An incision was made transversely across the area of the mass and the incision was extended somewhat inferolaterally along the medial aspect of the submammary scar from her breast reduction on the left side. Cautery was used to divide the subcutaneous tissue and a light-colored, fairly firm mass was encountered. It had some evidence of a desmoplastic reaction around it and so upon trying to remove this I tried include a rim of normal surrounding tissue, but in areas it very easily from the subcutaneous tissue so it was difficult to do this all the way around. In addition, it was fairly significantly adhesed to the chest wall at the left edge of the sternum and along some of the costal edges. It had also become adhesed to the anterior fascia at the subcostal musculature on the left side and so some of this fascia was removed on top of the muscle get the mass removed intact. The wound was irrigated with saline. Some small bleeding points were controlled with cautery. No other masses or other abnormal feeling tissue was present in the wound. The dermis was closed using multiple inverted interrupted sutures of 3-0 Vicryl. The skin was approximated using a running subcuticular suture of 3-0 Vicryl. Benzoin and Steri-Strips were placed over the incision and a sterile bandage followed. The patient was taken to the recovery area in stable condition postoperatively.
--- NOTE | 2021-04-16 14:47 | ANE.PACU2 ---
Inpatient post-anesthesia follow up: Airway intact: Yes Vital signs: Temperature 98.2 F Pulse Rate 100 Respiratory Rate 18 Blood Pressure 129/88 Pulse Oximetry 98 Oxygen Delivery Me thod Room Air Oxygen Flow Rate Fraction of Inspir ed Oxygen Hydration adequate: Yes Nausea and vomiting: No Pain level: 2 Mental status: Baseline
[2021-05-07 09:42] LABS: Miscellaneous Test See Scanned Lab Rpt
[2021-05-07 09:47] LABS: Miscellaneous Test See Scanned Lab Rpt
== END 2021-04-16 11:15 | disposition home or self-care (01) ==
PROVIDERS: Anesthesiology; PCP Internal Medicine; Visit Provider Surgery
PROC: (CPT 21554; principal; 2021-04-16 09:30)
DX: R22.2 Localized swelling, mass and lump, trunk (principal); M72.8 Other fibroblastic disorders; J45.909 Unspecified asthma, uncomplicated; I10 Essential (primary) hypertension; K21.9 Gastro-esophageal reflux disease without esophagitis; F41.9 Anxiety disorder, unspecified; F32.9 Major depressive disorder, single episode, unspecified; M79.7 Fibromyalgia; Z82.49 Family history of ischemic heart disease and other diseases of the circulatory system; Z83.3 Family history of diabetes mellitus; Z82.3 Family history of stroke; G47.30 Sleep apnea, unspecified
CPT/HCPCS: 21554; 81025; 84703; 88309; 88342; J0690; J1100; J1885; J2405; J2704; J3010; J3490; J7030

== ENCOUNTER → 2021-04-20 08:09 | Outpatient (BNVA) | payer MEDICAID, SELFPAY | PROVIDERS: PCP Internal Medicine; Visit Provider Internal Medicine Pulmonary Disease | DX: J45.909 Unspecified asthma, uncomplicated (principal); T78.40XA Allergy, unspecified, initial encounter; I10 Essential (primary) hypertension; F33.8 Other recurrent depressive disorders | CPT/HCPCS: 80048; 82785; 85025; 85378; 86003; 99214 ==

== ENCOUNTER 2021-04-30 12:33 | Outpatient (CLI) | payer MEDICAID, SELFPAY ==
[2021-04-30] MEDS: iohexol 350 mg/mL 100 mL Btl IV (12:51)
--- NOTE | 2021-04-30 13:00 | USCV_ITS ---
Stefano Cabezas Age: 40 Gender: F : 1980 Exam Date: 04/30/2021 13:12 Ordering Phys: Les Love MD Technologist: [place] [facility] [place]: bilat edema PROCEDURES: The venous duplex Doppler examination of both lower extremities was performed in the standard fashion. The following venous structures were evaluated: common femoral vein, profunda vein, proximal portion of the greater saphenous vein, superficial femoral vein, and the popliteal vein. In addition, the posterior tibial and peroneal trunk were evaluated. FINDINGS: Normal 2-D Doppler and augmentation and compressibility throughout the lower extremity venous structures. Additional imaging through the proximal calf veins also reveals no thrombus. Limited evaluation of the greater saphenous vein is patent with no thrombus. CONCLUSIONS No DVT bilateral lower extremities. Dr. Gabrielle Gonzalez DO (Electronically Signed) Final Date: 30 April 2021 15:42 S
--- NOTE | 2021-04-30 14:00 | CT_ITS ---
WS: [id number] CT CHEST ANGIOGRAPHY WITH REFORMATS HISTORY: rule out Pulmonary embolism TECHNIQUE: Contiguous axial images are obtained through the chest during arterial injection of intrav enous contrast. Images are reconstructed to evaluate the pulmonary arteries. MIP imaging also reviewe d. All CT scans at [facility] use at least one of these dose optimization techniques: automat ed exposure control; mA and/or kV adjustment per patient size (includes targeted exams where dose is matched to clinical indication); or iterative reconstruction. CONTRAST: Omnipaque 350; 95 mL IV. DLP: 500.57 mGy.cm COMPARISON: 03/19/2019 Excellent opacification of the pulmonary arteries. There are no filling defects. Normal size pulmonar y artery. Mildly ectatic thoracic aorta. Bilateral groundglass attenuation in part due to poor inspir ation. Mild pneumonitis not excluded. No consolidation or pneumonia. There are small mediastinal and hilar lymph nodes with the largest lymph node at the AP window measuring 11 mm. Prominent bilateral h ilar lymph nodes measuring up to 10 mm. Heart size is normal. No pericardial or pleural effusion. Again noted is a well-rounded low-attenuation mass along the anterior inferior chest wall which was r ecently described. This mass has increased in size now measuring 3.8 x 9.1 cm. Stable low-attenuation area in the RIGHT lobe of the liver is probably hemangioma. CT/CT angio chest PE protcl [id number] IMPRESSION: 1. No pulmonary embolism. 2. Mildly reactive lymphadenopathy. 3. Increase in size of the low-attenuation mass in the anterior chest wall. 4. Mild bilateral pneumonitis.
== END 2021-04-30 12:34 | disposition home or self-care (01) ==
LOC: RAD 12:34
PROVIDERS: PCP Internal Medicine; Visit Provider Internal Medicine Pulmonary Disease
DX: R06.00 Dyspnea, unspecified (principal); R59.1 Generalized enlarged lymph nodes; J18.9 Pneumonia, unspecified organism
CPT/HCPCS: 71275; 93970

== ENCOUNTER → 2021-05-04 07:54 | Outpatient (BNVA) | payer MEDICAID, SELFPAY | PROVIDERS: PCP Internal Medicine; Visit Provider Counselor Professional | DX: F33.1 Major depressive disorder, recurrent, moderate (principal); F41.9 Anxiety disorder, unspecified; G80.9 Cerebral palsy, unspecified | CPT/HCPCS: 90834 ==

== ENCOUNTER → 2021-05-25 07:54 | Outpatient (BNVA) | payer MEDICAID, SELFPAY | PROVIDERS: PCP Internal Medicine; Visit Provider Counselor Professional | DX: F33.1 Major depressive disorder, recurrent, moderate (principal); F41.9 Anxiety disorder, unspecified; G80.9 Cerebral palsy, unspecified | CPT/HCPCS: 90834 ==

== ENCOUNTER → 2021-06-09 08:42 | Outpatient (BNVA) | payer MEDICAID, SELFPAY | PROVIDERS: PCP Internal Medicine; Visit Provider Nurse Practitioner Psychiatric/Mental Health | DX: F33.1 Major depressive disorder, recurrent, moderate (principal); F41.9 Anxiety disorder, unspecified; G80.9 Cerebral palsy, unspecified | CPT/HCPCS: 99214 ==

== ENCOUNTER → 2021-06-11 07:46 | Outpatient (BNVA) | payer MEDICAID, SELFPAY | PROVIDERS: PCP Internal Medicine; Visit Provider Specialist | DX: G80.2 Spastic hemiplegic cerebral palsy (principal) | CPT/HCPCS: 64642; 99212; J0585 ==

== ENCOUNTER 2021-06-12 11:40 | Outpatient (CLI) | payer MEDICAID, SELFPAY ==
--- NOTE | 2021-06-12 11:46 | USCV_ITS ---
Stefano Cabezas Age: 41 Gender: F : 1980 Exam Date: 06/12/2021 12:21 Ordering Phys: Les Love MD Technologist: TENZIN [place] [facility] [place]: Dysnpea BP: 142 / 99 HR: 95 Rhythm: Sinus Technical Quality: Adequate MEASUREMENTS (Male / Female) Normal Values 2D ECHO LV Diastolic Diameter PLAX 4.3 cm 4.2 - 5.9 / 3.9 - 5.3 cm LV Systolic Diameter PLAX 2.8 cm IVS Diastolic Thickness 1.1 cm 0.6 - 1.0 / 0.6 - 0.9 cm IVS Systolic Thickness 1.6 cm LVPW Diastolic Thickness 1.2 cm 0.6 - 1.0 / 0.6 - 0.9 cm LVPW Systolic Thickness 1.5 cm LVOT Diameter 2.0 cm LV Ejection Fraction 2D Teich 64.1 % LV Ejection Fraction MOD 2C 65.9 % LV Ejection Fraction 2C AL 66.7 % LA Diameter 2.3 cm LA Width 2.7 cm LA Height 3.8 cm RA Width 2.2 cm RA Height 3.7 cm Aorta at Sinotubular Diameter 2.0 cm M-MODE Aortic Annulus Diameter 2.9 cm LA Ao Ratio MM 0.8 MV E Point Septal Separation 0.6 cm DOPPLER AV Peak Velocity 147.3 cm/s LVOT Peak Velocity 109.0 cm/s AV Area Cont Eq vti 2.5 cm squared AV Area Cont Eq pk 2.4 cm squared MV Peak Velocity 121.0 cm/s MV Area PHT 3.1 cm squared Mitral E to A Ratio 0.9 MV E' Velocity 55.5 cm/s Mitral E to MV E' Ratio 11.2 Mitral E to LV E' Lateral Ratio 10.1 Mitral E to LV E' Septal Ratio 12.6 TR Peak Velocity 172.1 cm/s TR Peak Gradient 11.8 mmHg TR Mean Velocity 133.6 cm/s TR Mean Gradient 7.3 mmHg TR Velocity Time Integral 34.0 cm TV Peak E Velocity 40.0 cm/s Right Atrial Pressure 3.0 mmHg Pulmonary Artery Systolic Pressu 14.8 mmHg PV Peak Velocity 88.0 cm/s RV Acceleration Time 0.1 s RV Ejection Time 0.3 s RV AcT/ET 0.4 FINDINGS Left Ventricle Normal left ventricular size and systolic function, EF 69 %. No regional wall motion abnormalities. Mild left ventricular hypertrophy. Grade I/IV diastolic dysfunction (abnormal relaxation filling pattern), normal to mildly elevated filling pressures. Right Ventricle The right ventricle is normal in size and function. Right Atrium The right atrium is normal in size. Left Atrium The left atrium is normal in size. Mitral Valve No gross abnormalities noted Aortic Valve No gross abnormalities noted Tricuspid Valve Trace tricuspid valve regurgitation. Estimated pulmonary artery peak systolic pressure 15 mmHg Pulmonic Valve No gross abnormalities noted Pericardium Normal pericardium without effusion. Aorta Normal ascending aorta dimension. CONCLUSIONS Normal left ventricular size and systolic function, EF 69 %. No regional wall motion abnormalities. Mild left ventricular hypertrophy. Grade I/IV diastolic dysfunction (abnormal relaxation filling pattern), normal to mildly elevated filling pressures. Trace tricuspid valve regurgitation. Estimated pulmonary artery peak systolic pressure 15 mmHg. Normal cardiac chamber sizes. No significant stenotic or regurgitant lesions There is no pericardial effusion. There are no intracardiac masses. Compared to the study from 11/21/2015, there may not be a significant change Dr Mushtaq Fatima MD FACC (Electronically Signed) Final Date: 12 Jun 2021 19:35 S
== END 2021-06-12 11:41 | disposition home or self-care (01) ==
LOC: RAD 11:41
PROVIDERS: PCP Internal Medicine; Visit Provider Internal Medicine Pulmonary Disease
DX: R06.00 Dyspnea, unspecified (principal); J45.909 Unspecified asthma, uncomplicated; T78.40XA Allergy, unspecified, initial encounter; I51.7 Cardiomegaly
CPT/HCPCS: 93306

== ENCOUNTER → 2021-06-18 12:57 | Outpatient (BNVA) | payer MEDICAID, SELFPAY | PROVIDERS: PCP Internal Medicine; Visit Provider Counselor Professional | DX: F33.1 Major depressive disorder, recurrent, moderate (principal); F41.9 Anxiety disorder, unspecified; G80.9 Cerebral palsy, unspecified | CPT/HCPCS: 90834 ==

== ENCOUNTER → 2021-06-22 08:53 | Outpatient (BNVA) | payer MEDICAID, SELFPAY | PROVIDERS: PCP Internal Medicine; Visit Provider Internal Medicine Pulmonary Disease | DX: R06.00 Dyspnea, unspecified (principal); J45.909 Unspecified asthma, uncomplicated; T78.40XA Allergy, unspecified, initial encounter | CPT/HCPCS: 99213; 99214 ==

== ENCOUNTER → 2021-07-02 08:51 | Outpatient (BNVA) | payer MEDICAID, SELFPAY | PROVIDERS: PCP Internal Medicine; Visit Provider Counselor Professional | DX: F33.1 Major depressive disorder, recurrent, moderate (principal); F41.9 Anxiety disorder, unspecified; G80.9 Cerebral palsy, unspecified | CPT/HCPCS: 90834 ==

== ENCOUNTER → 2021-07-23 11:00 | Outpatient (BNVA) | payer MEDICAID, SELFPAY | PROVIDERS: PCP Internal Medicine; Visit Provider Counselor Professional | DX: F33.1 Major depressive disorder, recurrent, moderate (principal); F41.9 Anxiety disorder, unspecified; G80.9 Cerebral palsy, unspecified | CPT/HCPCS: 90834 ==

== ENCOUNTER → 2021-08-23 11:59 | Outpatient (BNVA) | payer MEDICAID, SELFPAY | PROVIDERS: PCP Internal Medicine; Visit Provider Family Medicine | DX: Z20.822 Contact with and (suspected) exposure to COVID-19 (principal); J06.9 Acute upper respiratory infection, unspecified | CPT/HCPCS: 87635 ==

== ENCOUNTER 2021-09-07 14:25 | Outpatient (CLI) | payer MEDICAID, SELFPAY ==
--- NOTE | 2021-09-07 14:32 | MR_ITS ---
WS: [id number] MRI BRAIN WITH HIGH-RESOLUTION IMAGING THROUGH THE INTERNAL AUDITORY CANALS WITHOUT AND WITH CONTRAST HISTORY: SENSORINEURAL HEARING LOSS, BILATERAL COMPARISON: 07/25/2012 TECHNIQUE: Multiplanar, multisequence imaging is performed through the brain. Additional 3 mm imaging performed in multiple planes through the internal auditory canal. Postcontrast imaging with 13 ml's of MultiHance. No acute intracranial hemorrhage, midline shift, edema or mass effect. Very minimal small vessel ischemic disease. Slightly greater in the RIGHT parietal lobe. Ventricles a re normal size. No inferior displacement of cerebellar tonsils. No prior infarct. No hemorrhage. Ventricles and extra-axial spaces are normal. No inferior displacement of cerebellar tonsils. Clivus and pituitary gland are normal. There is a small enhancing mass along the RIGHT planum sphenoidale. Mass measures 4.6 x 4.1 mm and wa s not present on the prior examination. Favor this is probably a small meningioma. I do believe there is a dural tail. No adjacent edema. Internal and external auditory canals: Unremarkable. Cranial nerves VII and VIII complexes: Unremarkable. No enhancement or mass. Cerebellopontine angles: Normal. Paranasal sinuses: Normal. Mastoid air cells: Normal. Calvarium and scalp: Normal. Visualized [place] and dural venous sinuses demonstrate no abnormality. MR/MR iac's wo/w con* [id number] IMPRESSION: 1. No mass or abnormal enhancement at the cerebellopontine angle or internal a uditory canals. 2. New 4.6 x 4.1 mm enhancing mass along the RIGHT planum sphenoidale. Favor t his is probably a meningioma. As this is very difficult to completely character ize due to its small size recommend follow-up MRI brain with and without contra st in 3-4 months to document stability. This was not evident on the prior MRI.
[2021-09-07] MEDS: gadobenate dimeglumine 20 mL vial IV (15:51)
== END 2021-09-07 14:26 | disposition home or self-care (01) ==
LOC: RAD 14:26
PROVIDERS: PCP Internal Medicine; Visit Provider Specialist
DX: H90.3 Sensorineural hearing loss, bilateral (principal)
CPT/HCPCS: 70553

== ENCOUNTER 2021-09-12 09:00 | Emergency (ER) | payer MEDICAID, SELFPAY ==
[2021-09-12 09:07] VITALS: BP 127/81; PULSE 109; RESP 18; TEMP 36.8; O2SAT 99; BMI 33.7
[2021-09-12 09:11] VITALS: BP 108/70; PULSE 113; RESP 15; O2SAT 99
--- NOTE | 2021-09-12 09:21 | XRR_ITS ---
PROCEDURE INFORMATION: Exam: XR Chest Exam date and time: 09/12/2021 9:36 AM Age: 41 years old Clinical indication: Left-sided; Prior surgery; Surgery type: Mass removed; Patient HX: Left sided chest pain since mowing yesterday; Additional info: L chest pain TECHNIQUE: Imaging protocol: Radiologic exam of the chest. Views: 1 view. COMPARISON: CT chest w con* [id number] 03/19/2021 10:19 AM FINDINGS: Lungs: The lung parenchyma is clear. Pleural spaces: No pneumothorax. No pleural effusion. Heart/Mediastinum: The cardiomediastinal silhouette is within normal limits. Bones/joints: Unremarkable. XR/XR chest 1V portable [id number] IMPRESSION: No acute cardiopulmonary abnormality.
--- NOTE | 2021-09-12 09:22 | ED_ITS ---
HPI - Chest Pain General: Chief Complaint: General Medical Stated Complaint: Throat hurts and chest walters Time Seen by Provider: 09/12/21 09:03 Source: patient Mode of arrival: ambulatory Limitations: no limitations History of Present Illness: Patient is a 41-year-old female who presents to ED today with a complaint of left-sided chest burning and a sore throat. Patient tells me she feels like the chest burning started yesterday after push mowing her yard and it seems to be worse with palpation of the chest wall and movements. She does tell me she feels short of breath. She was seen on 08/[address] Garcia at [facility] for this complaint. She had a negative PCR COVID performed. Patient states she has continued to feel short of breath. She does have a history of asthma and seasonal allergies. She reports she had an anterior chest wall mass removed on 04/2021 of this year by Dr. Ritter. She is not having any cough or URI-like symptoms. Last echocardiogram was performed 06/2021 which showed an EF of 69%. She is not having any difficulty swallowing. Denies neck pain. MD complaint: chest pain Onset (ago): day(s) Onset: during exertion Pain location: left chest Pain radiation: none Quality: other (burning) Exacerbating factors: exertion, palpation and movement Associated symptoms: Reports dyspnea; Deny abdominal pain, fever(s), nausea, palpitations, syncope or vomiting Treatment prior to arrival: none Related Data: On Oral Contraceptives: No Review of Systems Const: Denies: fever(s), chills, body aches, fatigue or malaise Eyes: Denies: change in vision, blurry vision, blind spots, photophobia, floaters or seeing flashes ENMT: Reports: throat pain; Denies: uvular edema, enlarged tonsils, odynophagia, hoarseness, mouth pain, or al sores, ear or mastoid pain, nasal discharge, nasal congestion, post nasal drip or sinus pain Card: Reports: chest pain and dyspnea on exertion; Denies: palpitations, irregular heart rhythm, edema, swelling of feet/ankles, lightheadedness, syncope, pre-syncope, orthopnea, leg pain with exertion or acrocyanosis Resp: Reports: dyspnea; Denies: productive cough, non-productive cough, wheezing, pain on inspiration, hemoptysis or chest congestion GI: Denies: abdominal pain, nausea, vomiting or diarrhea Musc: Denies: neck pain, back pain, extremity pain or joint pain Skin/Breast: Denies: rash Neuro: Denies: headache(s), numbness in extremities, weakness in extremities or sensory changes PFS ED PFSH: Medical History Accelerated essential hypertension 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 Psychiatric care Vision loss of left eye Surgical History History of bilateral breast reduction surgery 08/27/20 [place], [place]. Dr. Alcaraz. History of carpal tunnel surgery of left wrist 2020 - [place], [place] Dr. Holder. History of myringotomy History of tonsillectomy and adenoidectomy Family History Mother Diabetes Stroke Hypertension Breast cancer mother-- dx'd at 58 y/o Family/Other Breast cancer Maternal aunt Social History Smoking and tobacco status: never smoked Second hand smoke exposure: Yes Physical Exam Const: COMMON NORMALS: no acute distress, patient oriented x3, no limitations, alert and well nourished GENERAL APPEARANCE: cooperative ORIENTATION/CONSCIOUSNESS: Yes awake, Yes oriented to person, Yes oriented to place and Yes oriented to time HENMT: COMMON NORMALS: normocephalic and atraumatic HEAD & SCALP: normal to inspection, normocephalic and atraumatic FACE & SINUS: normal facial exam MOUTH: Normal oral and palatal mucosa present, lip normal and tongue normal THROAT: posterior oropharynx normal, tonsils normal and uvula midline; no uvular edema Eye: GENERAL EYE: appearance normal, both eyes and all related structures Neck/C-Spine: COMMON NORMALS: full ROM, no lymphadenopathy and no meningeal signs GENERAL: Yes normal visual inspection, No anterior neck swelling and No submandibular swelling Chest: CHEST: Yes Surgical scars present (Chest) OTHER: TTP L anterior chest; scar present from previous subcutaneous mass excision Resp: COMMON NORMALS: normal respiratory effort and clear to auscultation bilaterally AUSCULTATION: clear to auscultation bilaterally Cardio: COMMON NORMALS: regular rhythm RATE: tachycardic RHYTHM: regular rhythm GI: COMMON NORMALS: Normal to inspection, nondistended, normoactive bowel sounds present, Soft to palpation and non-tender PALPATION: Yes Soft to palpation Back/Pelvis: COMMON NORMALS: thoracic and lumbar spine normal to inspection, no thoracic nor lumbar tenderness and thoraco-lumbar ROM normal Extremity: COMMON NORMALS: normal to inspection, full ROM, capillary refill n ormal, no joint enlargement, no clubbing, cyanosis or edema, no calf tenderness and no pedal edema GENERAL: Yes normal exam except as noted Neuro: GREER COMA SCALE: document GCS findings Greer coma scale eye opening: Spontaneous Derwent coma scale verbal response: Orientated Greer coma scale motor response: Obey commands Greer coma scale total score: 15 COMMON NORMALS: patient oriented x3, moves all extremities, no focal motor deficits, no sensory deficits noted and gait normal SENSORIUM/ORIENTATION: Yes alert, Yes oriented to person, Yes oriented to place and Yes oriented to time MENINGEAL SIGNS: Yes no meningeal signs Skin: COMMON NORMALS: no rashes or lesions noted GENERAL SKIN EXAM: no rashes or lesions noted Course Vital Signs: Vital signs: Vital Signs Temperature 98.2 F 09/12/21 09:07 Pulse Rate 109 H 09/12/21 09:07 Respiratory Rate 18 09/12/21 09:07 Blood Pressure 127/81 09/12/21 09:07 Pulse Oximetry 99 09/12/21 09:07 Oxygen Delivery Me thod 09/12/21 09:07 [facility] - Chest Pain Medical Decision Making Patient here with reproducible pain over left anterior chest wall that began after push mowing her yard yesterday. She was noted to be tachycardic upon a rrival. Blood work including a d-dimer and troponin as well as a CXR performed on today's visit. Blood work is unremarkable. She is mildly low potassium at 3.0. She was given oral replacement for this. Mag is normal. Her d-dimer and troponin are negative. EKG without ischemic changes. Her CXR is normal. She has an up-to-date echocardiogram. Recommend follow-up with Dr. Nuñez next week for re-evaluation. Strict return ED precautions given. Lab Data : 09/12/21 09:30 09/12/21 09:30 Radiology Impressions Chest X-Ray 09/12/21 09:21 IMPRESSION: No acute cardiopulmonary abnormality. Laboratory Results WBC 11.5 10^3/uL (4.0-10.0) H 09/12/21 09:30 RBC 4.39 10^6/uL (4.1-5.3) 09/12/21 09:30 Hgb 13.9 g/dL (11.5-15.3) 09/12/21 09:30 Hct 41.8 % (37.0-47.0) 09/12/21 09:30 MCV 95.2 fl (81-99) 09/12/21 09:30 MCH 31.7 pg (28.0-34.0) 09/12/21 09:30 MCHC 33.3 g/dL (30.0-36.0) 09/12/21 09:30 RDW 15.2 % (12.1-15.1) H 09/12/21 09:30 Plt Count 494 10^3/cmm (130-400) H 09/12/21 09:30 MPV 10.0 fL (7.4-10.4) 09/12/21 09:30 Neut % (Auto) 69.8 % 09/12/21 09:30 Lymph % (Auto) 19.8 % 09/12/21 09:30 [place] % (Auto) 7.6 % 09/12/21 09:30 Eos % (Auto) 1.1 % 09/12/21 09:30 Baso % (Auto) 0.7 % 09/12/21 09:30 Neut # (Auto) 8.00 10^3/uL (1.8-7.7) H 09/12/21 09:30 Lymph # (Auto) 2.3 10^3/uL (0.8-4.8) 09/12/21 09:30 [place] # (Auto) 0.9 10^3/uL (0.2-0.9) 09/12/21 09:30 Eos # (Auto) 0.1 10^3/uL (0.0-0.8) 09/12/21 09:30 Baso # (Auto) 0.1 10^3/uL (0.0-0.1) 09/12/21 09:30 Nucleated RBC % (auto) 0 % 09/12/21 09:30 Nucleated RBCs # 0.0 /100WBC 09/12/21 09:30 D-Dimer 0.45 ug/mIFEU (0-0.59) 09/12/21 09:30 Sodium 139 mmol/L (136-145) 09/12/21 09:30 Potassium 3.0 mmol/L (3.5-5.1) L 09/12/21 09:30 Chloride 102 mmol/L (98-107) 09/12/21 09:30 Carbon Dioxide 22 mmol/L (22-29) 09/12/21 09:30 Anion Gap 18.0 (5-19) 09/12/21 09:30 BUN 5 mg/dL (6-20) L 09/12/21 09:30 Creatinine 0.6 mg/dL (0.5-0.9) 09/12/21 09:30 GFR Calculation 109.6 mL/min (90-130) 09/12/21 09:30 Glucose 92 mg/dL (65-115) 09/12/21 09:30 Calculated Osmolality 285 mOsm/kg (285-295) 09/12/21 09:30 Calcium 9.7 mg/dL (8.5-10.5) 09/12/21 09:30 Magnesium 1.9 mg/dL (1.7-2.3) 09/12/21 09:30 Total Bilirubin 0.9 mg/dL (0.15-1.2) 09/12/21 09:30 AST 21 U/L (0-32) 09/12/21 09:30 ALT 21 U/L (0-33) 09/12/21 09:30 Alkaline Phosphatase 159 IU/L (35-105) H 09/12/21 09:30 Troponin T Baseline 9 ng/L (0-10) 09/12/21 09:30 Total Protein 8.0 g/dL (6.6-8.7) 09/12/21 09:30 Albumin 4.6 g/dL (3.5-5.2) 09/12/21 09:30 Globulin 3.4 g/dL (1.3-4.6) 09/12/21 09:30 Discharge Plan Discharge Patient Disposition: Home Clinical Impression: Left-sided chest wall pain, Hypokalemia Condition: Stable Prescriptions: No Action montelukast 10 mg tablet 10 mg PO DAILY albuterol sulfate [ProAir HFA] 90 mcg/actuation HFA aerosol inhaler 2 puff INHALATION .QID PRN omeprazole 20 mg capsule,delayed release(DR/EC) 20 mg PO DAILY ipratropium-albuterol 0.5 mg-3 mg(2.5 mg base)/3 mL solution for nebulization 3 ml inhalation TID losartan 25 mg tablet 25 mg PO DAILY Qty: 30 3RF buspirone 15 mg tablet 15 mg PO BID Qty: 30 2RF Rx Instructions: For three days:Take 1/2 tablet morning and evening, then increase to one tablet morning and evening duloxetine 60 mg capsule,delayed release(DR/EC) 60 mg PO .q am Qty: 30 1RF Rx Instructions: Take one capsule every morning hydroxyzine pamoate 25 mg capsule 50 mg PO BID PRN (Reason: anxiety) Qty: 60 3RF Rx Instructions: Take one or two capsules twice a day, if needed for anxiety, 4 to 6 hours apart multivitamin [One-A-Day Essential] Tablet 1 tab PO DAILY medroxyprogesterone 150 mg/mL syringe 150 mg IM Bevespi Aerosphere 9-4.8 mcg HFA aerosol inhaler 2 puff inhalation BID Qty: 10.7 5RF Flovent HFA 110 mcg/actuation HFA aerosol inhaler 2 puff inhalation BID Qty: 12 5RF Discharge Orders: Discharge ED (Routine); Ordered 09/12/21 Ordered By: Sangita Rudolph Referrals: Jorge Luis Nuñez DO [Primary Care Provider] - Activity Restrictions/Additional Instructions: Please follow-up with your primary care provider Dr. Nuñez next week for re- evaluation. You may return to the emergency department for worsening chest pa in, shortness of breath, difficulty breathing. Your potassium was mildly low here. You were given oral replacement. Please speak to Dr. Nuñez to see if he would like to recheck this during your follow up visit. Coding Level of Care Code ED Mascara Molder for Chg Fwd Exam Comprehensive
--- NOTE | 2021-09-12 09:31 | ECG_ITS ---
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 Measurements Intervals [place] Rate: 112 P: 63 ND: 131 QRS: 94 QRSD: 81 T: 24 QT: 347 QTc: 476 Interpretive Statements SINUS TACHYCARDIA BORDERLINE RIGHT AXIS DEVIATION [QRS AXIS > 90] POSSIBLE RIGHT VENTRICULAR CONDUCTION DELAY [RSR (QR) IN V1/V2] ABNORMAL RHYTHM ECG Compared to ECG 10/31/2020 12:07:32 Sinus rhythm no longer present Sinus arrhythmia no longer present Incomplete right bundle-branch block no longer present Electronically Signed On 09-12-2021 18:57:35 CDT by Mushtaq Fatima M.D. [id number]
[2021-09-12 09:41] LABS: Basophils # 0.1 10^3/uL (0.0-0.1); Basophils % 0.7 %; Eosinophils # 0.1 10^3/uL (0.0-0.8); Eosinophils % 1.1 %; Hematocrit 41.8 % (37.0-47.0); Hemoglobin 13.9 g/dL (11.5-15.3); Lymphocytes # 2.3 10^3/uL (0.8-4.8); Lymphocytes % 19.8 %; Mean Corpuscular HGB Conc 33.3 g/dL (30.0-36.0); Mean Corpuscular Hemoglobin 31.7 pg (28.0-34.0); Mean Corpuscular Volume 95.2 fl (81-99); Monocytes # 0.9 10^3/uL (0.2-0.9); Monocytes % 7.6 %; Neutrophils % 69.8 %; Nucleated Red Blood Cells % 0 %; Platelet Count 494 10^3/cmm (130-400); Red Blood Count 4.39 10^6/uL (4.1-5.3); Red Cell Distribution Width 15.2 % (12.1-15.1); White Blood Count 11.5 10^3/uL (4.0-10.0)
[2021-09-12 09:58] LABS: D Dimer 0.45 ug/mIFEU (0-0.59)
[2021-09-12 10:06] LABS: Alanine Aminotransferase 21 U/L (0-33); Albumin Level 4.6 g/dL (3.5-5.2); Alkaline Phosphatase 159 IU/L (35-105); Aspartate Amino Transferase 21 U/L (0-32); Blood Urea Nitrogen 5 mg/dL (6-20); Calcium 9.7 mg/dL (8.5-10.5); Carbon Dioxide 22 mmol/L (22-29); Chloride 102 mmol/L (98-107); Globulin 3.4 g/dL (1.3-4.6); Glomerular Filtration Rate 109.6 mL/min (90-130); Glucose 92 mg/dL (65-115); Osmolality Calculated 285 mOsm/kg (285-295); Sodium 139 mmol/L (136-145); Total Bilirubin 0.9 mg/dL (0.15-1.2); Troponin(5th) Baseline 9 ng/L (0-10)
[2021-09-12] MEDS: potassium chloride ER 20 mEq Tablet 60 MEQ PO (10:51)
[2021-09-12 10:53] LABS: Magnesium 1.9 mg/dL (1.7-2.3)
== END 2021-09-12 11:10 | disposition home or self-care (01) ==
PROVIDERS: Emergency Provider Physician Assistant; PCP Internal Medicine
DX: R07.89 Other chest pain (principal); E87.6 Hypokalemia; E34.3 Short stature due to endocrine disorder; Z77.22 Contact with and (suspected) exposure to environmental tobacco smoke (acute) (chronic)
CPT/HCPCS: 71045; 80053; 83735; 84484; 85025; 85378; 93005; 99285

== ENCOUNTER → 2021-09-17 14:27 | Outpatient (BNVA) | payer MEDICAID, SELFPAY | PROVIDERS: PCP Internal Medicine; Visit Provider Specialist | DX: G81.14 Spastic hemiplegia affecting left nondominant side (principal) | CPT/HCPCS: 64642; J0585 ==

== ENCOUNTER → 2021-09-24 09:47 | Outpatient (BNVA) | payer MEDICAID, SELFPAY | PROVIDERS: PCP Internal Medicine; Visit Provider Internal Medicine Pulmonary Disease | DX: R06.00 Dyspnea, unspecified (principal); T78.40XA Allergy, unspecified, initial encounter; J45.998 Other asthma; Z98.890 Other specified postprocedural states | CPT/HCPCS: 99214 ==

== ENCOUNTER 2021-11-05 13:36 | Outpatient (CLI) | payer MEDICAID, SELFPAY ==
--- NOTE | 2021-11-05 13:44 | MM_ITS ---
WS: [id number] VIEWS: MLO and CC views both breasts. 3D digital tomosynthesis is also included in this exam. Comparison made with prior exam of 09/22/2015, 06/08/2018, 05/02/2020.. Findings: There was no sign of mass, architectural distortion or suspicious calcification in either breast. Jeremy ateral breast reduction since prior study. Scattered fibroglandular densities MM/[place] [id number] Impression: BI-RADS: 2-Benign FOLLOW-UP: 1 Year Follow-up This mammogram was also analyzed by the Computer Aided Detection System R2 Imag e On Car Supervisor.
== END 2021-11-05 13:37 | disposition home or self-care (01) ==
LOC: RAD 13:37
PROVIDERS: PCP Internal Medicine; Visit Provider Internal Medicine
DX: Z12.31 Encounter for screening mammogram for malignant neoplasm of breast (principal)
CPT/HCPCS: 77063; 77067

== ENCOUNTER 2021-11-18 09:16 | Outpatient (CLI) | payer MEDICAID, SELFPAY ==
--- NOTE | 2021-11-18 | CT_ITS ---
WS: [id number] CT ABDOMEN AND PELVIS WITH CONTRAST HISTORY: RUQ PAIN TECHNIQUE: Imaging performed of the abdomen and pelvis with IV contrast. Dual phase imaging of the a bdomen. Coronal and sagittal reformats are submitted. All CT scans at [facility] use at least one of these dose optimization techniques: automated exposure control; mA and/or kV adjustment per p atient size (includes targeted exams where dose is matched to clinical indication); or iterative monserrat nstruction. IV CONTRAST: Omnipaque 350; 80 mL IV. Oral contrast: No DLP: 1331.99 mGy.cm COMPARISON: Prior CT of 12/14/2016 and 04/30/2021. Lower thorax: Lung bases are clear. Heart is normal size. No hiatal hernia. Liver/biliary system: Normal size liver. Hypoechoic mass in the posterior superior RIGHT lobe the nika er measures 2.3 x 2.1 cm and begins to fill and on a delayed image. This has been previously describe d and thought to be a hemangioma. No adjacent hemorrhage. Gallbladder: Normal. No gallstones or wall thickening. No pericholecystic fluid. Pancreas: Normal size pancreas and pancreatic duct. No adjacent inflammation. Spleen: Normal size spleen. No mass or infarct. Adrenal glands: Normal. Right kidney: Normal. Left kidney: Normal. Aorta: Normal. Lymphadenopathy: None. Free fluid: None. GI tract: Nondistended stomach. No small bowel obstruction. No colon obstruction. The appendix is nor mal. No colon obstruction. Abdominal wall: Unremarkable abdominal wall. No hernia. Pelvis: No free fluid or adenopathy within the pelvis. Uterus is midline. Very slightly globular appe arance of the uterus. Focal increased enhancement towards the fundus. Could be an area of adenomyosis . No adnexal masses. Bones: LEFT curvature lumbar spine. CT/CT abdomen pelvis w con* [id number] IMPRESSION: 1. Long-term stability hemangioma in the posterior RIGHT lobe of the liver. 2. Normal gallbladder. 3. No adenopathy or ascites. 4. Subtle area of enhancement within the fundal myometrium may be a small fibr oid or adenomyosis. For further evaluation transvaginal pelvic ultrasound may b e of value.
[2021-11-18] MEDS: iohexol 350 mg/mL 100 mL Btl IV (10:18)
== END 2021-11-18 09:17 | disposition home or self-care (01) ==
PROVIDERS: PCP Internal Medicine; Visit Provider Internal Medicine
DX: R10.11 Right upper quadrant pain (principal); D18.09 Hemangioma of other sites
CPT/HCPCS: 74177

== ENCOUNTER → 2021-12-24 08:49 | Outpatient (BNVA) | payer MEDICAID, SELFPAY | PROVIDERS: PCP Internal Medicine; Visit Provider Specialist | DX: G81.14 Spastic hemiplegia affecting left nondominant side (principal); Z71.89 Other specified counseling | CPT/HCPCS: 64642; J0585 ==

== ENCOUNTER 2022-01-07 07:49 | Outpatient (CLI) | payer MEDICAID, SELFPAY ==
--- NOTE | 2022-01-07 07:58 | MR_ITS ---
WS: [id number] MRI BRAIN WITH AND WITHOUT CONTRAST HISTORY: BRAIN MASS COMPARISON: 09/07/2021 and 07/25/2012 TECHNIQUE: Multiplanar imaging performed through the brain with MultiHance 15 ml's IV. No acute infarcts are seen. Oates-white matter differentiation is well preserved. . Minimal small vess el ischemic disease is unchanged. No susceptibility artifacts or prior lacunar infarcts. Ventricles and extra-axial spaces are normal. Clivus and pituitary gland are normal. Visualized posterior fossa and brainstem are also normal. No increase in size of the extra-axial intensely enhancing mass along the RIGHT planum sphenoidale. M ass measures 5 x 5 x 6 mm. There does appear to be a dural tail seen best on the sagittal imaging. No additional masses or abnormal enhancement. Dural venous sinuses are normal. Paranasal sinuses: Small mucous retention cyst in the RIGHT sphenoid sinus. Mastoid air cells: Normal. Calvarium and scalp: Normal. MR/MR head wo/w con [id number] IMPRESSION: 1. No increase in size of the 5 x 5 x 6 mm intensely enhancing extra-axial mas s along the RIGHT planum sphenoidale. Most consistent with a meningioma. Sugges t serial imaging for a total of 2 years to document stability. Recommend 6 azra h MRI brain follow-up with and without contrast. 2. Mild small vessel ischemic disease is stable.
[2022-01-07] MEDS: gadobenate dimeglumine 20 mL vial IV (08:24)
== END 2022-01-07 07:50 | disposition home or self-care (01) ==
LOC: RAD 07:50
PROVIDERS: PCP Internal Medicine; Visit Provider Internal Medicine
DX: G93.89 Other specified disorders of brain (principal); I67.82 Cerebral ischemia
CPT/HCPCS: 70553; A9577

== ENCOUNTER → 2022-03-18 07:41 | Outpatient (BNVA) | payer MEDICAID, SELFPAY | PROVIDERS: PCP Internal Medicine; Visit Provider Specialist | DX: G81.14 Spastic hemiplegia affecting left nondominant side (principal); Z71.89 Other specified counseling | CPT/HCPCS: 64642; J0585 ==

== ENCOUNTER → 2022-05-17 10:48 | Outpatient (BNVA) | payer MEDICAID, SELFPAY | PROVIDERS: PCP Internal Medicine; Visit Provider Internal Medicine Pulmonary Disease | DX: R10.12 Left upper quadrant pain (principal) | CPT/HCPCS: 71046; 99214 ==

== ENCOUNTER 2022-05-27 07:16 | Outpatient (CLI) | payer MEDICAID, SELFPAY ==
--- NOTE | 2022-05-27 07:30 | CT_ITS ---
WS: [id number] CT chest wo con [id number] HISTORY: pulmonary mass TECHNIQUE: Axial imaging performed through the thorax. Coronal and sagittal reformats are submitted. All CT scans at [facility] use at least one of these dose optimization techniques: automated exposure control; mA and/or kV adjustment per patient size (includes targeted exams where dose is mat ched to clinical indication); or iterative reconstruction. CONTRAST: Omnipaque 350; 100 mL IV. DLP: 317.52 mGy.cm COMPARISON: 04/30/2021, chest radiograph 05/17/2022. Lungs and central airway: Normal. Pleura: Normal. No pleural effusion. Heart and pericardium: Normal size heart with no pericardial effusion. Mediastinum and luís: Mildly prominent mediastinal lymph nodes. The largest lymph node is at the AP w indow measuring 11 mm. Unchanged since 04/30/2021. No enlarging lymph nodes. The lymph node burden act ually appears decreased as compared to 04/30/2021. Vessels: Normal size aortic and pulmonary artery. No coronary artery calcifications. Chest wall and lower neck: Previously described mass along the anterior chest wall is no longer prese nt. No residual mass or new mass identified. Upper abdomen: Normal. Osseous structures: Scoliosis. CT/CT chest wo con [id number] IMPRESSION: 1. No residual mass in the anterior LEFT chest wall. No corresponding mass by CT to correlate with the radiograph of 05/17/2022. 2. No pneumonia. 3. Mediastinal and hilar lymph nodes have slightly decreased in size.
== END 2022-05-27 07:17 | disposition home or self-care (01) ==
LOC: RAD 07:20
PROVIDERS: PCP Internal Medicine; Visit Provider Internal Medicine Pulmonary Disease
DX: J45.909 Unspecified asthma, uncomplicated (principal); R91.8 Other nonspecific abnormal finding of lung field
CPT/HCPCS: 71250

== ENCOUNTER → 2022-06-24 07:43 | Outpatient (BNVA) | payer MEDICAID, SELFPAY | PROVIDERS: PCP Internal Medicine; Visit Provider Specialist | DX: G81.14 Spastic hemiplegia affecting left nondominant side (principal); Z71.89 Other specified counseling | CPT/HCPCS: 64642; 95911; J0585 ==

== ENCOUNTER → 2022-07-20 08:44 | Outpatient (BNVA) | payer MEDICAID, SELFPAY | PROVIDERS: PCP Internal Medicine; Visit Provider Nurse Practitioner Family | DX: L60.3 Nail dystrophy (principal); M25.50 Pain in unspecified joint; L81.4 Other melanin hyperpigmentation; D22.5 Melanocytic nevi of trunk; Z71.89 Other specified counseling; L85.3 Xerosis cutis; Z80.8 Family history of malignant neoplasm of other organs or systems | CPT/HCPCS: 99214 ==

== ENCOUNTER 2022-08-24 14:38 | Outpatient (CLI) | payer MEDICAID, SELFPAY ==
--- NOTE | 2022-08-24 14:49 | MR_ITS ---
WS: [id number] MRI HEAD WITH CONTRAST TECHNIQUE: Sagittal T1, T2 axial, T2 axial FLAIR, axial susceptibility weighted imaging, axial diffus ion weighted images, and coronal T2 images were obtained. Pre and post-T1 axial and post T1 coronal i mages. ADC and FSPGR images. CLINICAL INFORMATION: MASS LESION OF BRAIN COMPARISON: MRI January 07, 2022 and September 07, 2021 FINDINGS: Previously described enhancing meningioma along the RIGHT planum sphenoidale is unchanged i n appearance measuring approximately 5.6 x 5.9 x 5.3 mm AP by transverse by craniocaudal. No signific ant surrounding edema. No significant progression compared to the prior examinations. No evidence of restricted diffusion to suggest acute ischemia. Ventricular system and basal cisterns are patent. Mild patchy supratentorial white matter changes nonspecific in a patient this age but can be seen with hypertension, diabetes, and migraine headaches. Mild frontal parenchymal volume loss. Tiny chronic lacunar infarct RIGHT cerebellum. Normal vascular flow voids at the skull base. No extra -axial fluid collections. Paranasal sinuses are well aerated. Mastoid air cells are well aerated. No hemosiderin on susceptibly weighted images. Normal optic chiasm and pituitary infundibulum. MR/MR head wo/w con [id number] IMPRESSION: 1. Previously described meningioma along the RIGHT planum sphenoidale is uncha nged. No surrounding edema. 2. No other abnormal enhancing intracranial lesions. 3. No restricted diffusion to suggest acute ischemia. 4. Mild stable supratentorial white matter changes. 5. No hemosiderin on susceptibly weighted images.
[2022-08-24] MEDS: gadobenate dimeglumine 20 mL vial IV (15:26)
== END 2022-08-24 14:39 | disposition home or self-care (01) ==
LOC: RAD 14:40
PROVIDERS: PCP Internal Medicine; Visit Provider Internal Medicine
DX: G93.9 Disorder of brain, unspecified (principal); D32.0 Benign neoplasm of cerebral meninges
CPT/HCPCS: 70553; A9577

== ENCOUNTER → 2022-08-30 07:57 | Outpatient (BNVA) | payer MEDICAID, SELFPAY | PROVIDERS: PCP Internal Medicine; Visit Provider Podiatrist Foot & Ankle Surgery | DX: L60.3 Nail dystrophy (principal); M21.611 Bunion of right foot; M21.612 Bunion of left foot | CPT/HCPCS: 11750; 73630; 99204 ==

== ENCOUNTER → 2022-09-14 06:53 | Outpatient (BNVA) | payer MEDICAID, SELFPAY | PROVIDERS: PCP Internal Medicine; Visit Provider Podiatrist Foot & Ankle Surgery | DX: L60.3 Nail dystrophy; M21.611 Bunion of right foot; M21.612 Bunion of left foot | CPT/HCPCS: 99213 ==

== ENCOUNTER → 2022-09-23 07:42 | Outpatient (BNVA) | payer MEDICAID, SELFPAY | PROVIDERS: PCP Internal Medicine; Visit Provider Specialist | DX: D32.9 Benign neoplasm of meninges, unspecified (principal); G81.14 Spastic hemiplegia affecting left nondominant side | CPT/HCPCS: 64642; 99214; J0585 ==

== ENCOUNTER → 2022-10-05 15:33 | Outpatient (BNVA) | payer MEDICAID, SELFPAY | PROVIDERS: PCP Internal Medicine; Visit Provider Specialist | DX: R29.90 Unspecified symptoms and signs involving the nervous system (principal); D32.9 Benign neoplasm of meninges, unspecified; G81.14 Spastic hemiplegia affecting left nondominant side; R51.9 Headache, unspecified; Z86.73 Personal history of transient ischemic attack (TIA), and cerebral infarction without residual deficits | CPT/HCPCS: 99214 ==

== ENCOUNTER → 2022-10-07 07:46 | Outpatient (BNVA) | payer MEDICAID, SELFPAY | PROVIDERS: PCP Internal Medicine; Visit Provider Podiatrist Foot & Ankle Surgery | DX: L60.3 Nail dystrophy (principal); L60.0 Ingrowing nail | CPT/HCPCS: 11750 ==

== ENCOUNTER 2022-10-08 14:22 | Emergency (ER) | payer MEDICAID, SELFPAY ==
[2022-10-08 15:24] VITALS: BP 139/99; PULSE 117; RESP 16; TEMP 36.7; O2SAT 99
--- NOTE | 2022-10-08 15:31 | XRR_ITS ---
PROCEDURE INFORMATION: Exam: XR Chest Exam date and time: 10/08/2022 4:12 PM Age: 42 years old Clinical indication: Unspecified chest pain. TECHNIQUE: Imaging protocol: Radiologic exam of the chest. Views: 1 view. COMPARISON: 1. CT chest wo con [id number] 05/27/2022 7:33 AM 2. CR XR chest 2V* [id number] 05/17/2022 10:58 AM FINDINGS: Lungs: No pneumonia or pulmonary edema. Pleural spaces: No pleural effusion or pneumothorax. Heart/Mediastinum: The cardiac silhouette is not enlarged. The mediastinal contours are normal. Bones/joints: No acute osseous abnormality. XR/XR chest 1V portable [id number] IMPRESSION: No acute finding.
--- NOTE | 2022-10-08 15:36 | ECG_ITS ---
[facility] Test Date: 2022-10-08 Pat Name: Stefano Cabezas Department: Room: Gender: Female Doughnut Icer Machine: : 1980 Requested By: Jarvis Blackburn Order Number: [id number] Gabriela MD: Krista Hart M.D. Measurements Intervals [place] Rate: 114 P: 19 TX: 130 QRS: -56 QRSD: 89 T: 64 QT: 344 QTc: 475 Interpretive Statements SINUS TACHYCARDIA INDETERMINATE AXIS LOW QRS VOLTAGE IN PRECORDIAL LEADS [QRS DEFLECTION < 1.0 mV IN CHEST LEADS] POSSIBLE RIGHT VENTRICULAR CONDUCTION DELAY [RSR (QR) IN V1/V2] LEFT ANTERIOR FASCICULAR BLOCK [QRS AXIS <= -45, QR IN I, RS IN II] ST DEVIATION AND MODERATE T-WAVE ABNORMALITY, CONSIDER ANTERIOR ISCHEMIA Compared to ECG 09/12/2021 09:31:24 Indeterminate axis now present Low QRS voltage now present Right ventricular hypertrophy now present Left anterior fascicular block now present T-wave abnormality now present Possible ischemia now present Electronically Signed On 10-08-2022 20:32:10 CDT by Krista Hart M.D. [email or web address])/[id number] chou
[2022-10-08 16:09] LABS: Basophils # 0.1 10^3/uL (0.0-0.1); Eosinophils # 0.1 10^3/uL (0.0-0.8); Eosinophils % 1.5 %; Hematocrit 38.4 % (36-47); Lymphocytes # 2.4 10^3/uL (0.8-4.8); Lymphocytes % 26.6 %; Mean Corpuscular HGB Conc 34.4 g/dL (30-55); Mean Corpuscular Hemoglobin 32.4 pg (27-33); Mean Corpuscular Volume 94.3 fl (85-98); Mean Platelet Volume 9.7 fL (7.4-10.4); Monocytes # 0.6 10^3/uL (0.2-0.9); Monocytes % 6.5 %; Neutrophils # 5.63 10^3/uL (1.8-7.7); Neutrophils % 63.7 %; Nucleated Red Blood Cells % 0 %; Platelet Count 412 10^3/cmm (157-399); Red Blood Count 4.07 10^6/uL (3.85-5.65); Red Cell Distribution Width 15.5 % (12.1-15.1); White Blood Count 8.83 10^3/uL (3.29-11.43)
[2022-10-08 16:26] LABS: Alanine Aminotransferase 42 U/L (0-33); Albumin Level 4.8 g/dL (3.5-5.2); Alkaline Phosphatase 167 U/L (35-105); Anion Gap 15.3 (5-19); Aspartate Amino Transferase 36 U/L (0-32); Blood Urea Nitrogen 6 mg/dL (6-20); Calcium 9.2 mg/dL (8.5-10.5); Carbon Dioxide 24 mmol/L (22-29); Chloride 106 mmol/L (98-107); Globulin 2.4 g/dL (1.3-4.6); Glomerular Filtration Rate 91.3 mL/min (90-130); Glucose 77 mg/dL (65-115); Osmolality Calculated 290 mOsm/kg (285-295); Potassium 3.3 mmol/L (3.5-5.1); Sodium 142 mmol/L (136-145); Total Bilirubin 0.5 mg/dL (0.15-1.2); Total Protein 7.2 g/dL (6.6-8.7)
[2022-10-08 16:28] LABS: Troponin(5th) Baseline 6 ng/L (0-10)
[2022-10-08 18:00] VITALS: BP 136/104; PULSE 111; RESP 18; O2SAT 100
--- NOTE | 2022-10-08 18:15 | PC.NURSE ---
PT PLACED ON CONTINUOUS NIBP ,SPO2, AND CM
--- NOTE | 2022-10-08 18:24 | CTR_ITS ---
PROCEDURE INFORMATION: Exam: CT Neck With Contrast Exam date and time: 10/08/2022 6:34 PM Age: 42 years old Clinical indication: Mass, lump, or swelling in neck; Prior surgery; Surgery date: 6+ months; Surgery type: Myringotomy; Patient HX: C/O of left sided throat pain with swelling. ; Additional info: Neck swelling TECHNIQUE: Imaging protocol: Computed tomography of the neck with contrast. Radiation optimization: All CT scans at this facility use at least one of these dose optimization techniques: automated exposure control; mA and/or kV adjustment per patient size (includes targeted exams where dose is matched to clinical indication); or iterative reconstruction. Contrast material: OMNI 350; Contrast volume: 100 ml; Contrast route: INTRA-ARTERIAL (ARTERIAL); REPORTING DATA: Count of CT and Cardiac NM exams in prior 12 months: This patient has received 2 known CTs and 0 known cardiac nuclear medicine studies in the 12 months prior to the current study. COMPARISON: CR XR cervical spine 3V* [id number] 08/07/2021 12:36 PM RADIATION DOSE METRICS: Total DLP (mGy-cm): 193.63 FINDINGS: Pharynx: Unremarkable. No significant tonsillar enlargement. Larynx: Unremarkable. Epiglottis is normal. Prevertebral and retropharyngeal spaces: Unremarkable. Salivary glands: Normal. Glands are normal in size. Thyroid: Normal. No enlarged or calcified nodules. Lymph nodes: Unremarkable. No lymphadenopathy. Trachea: Visualized trachea is unremarkable. Lungs: Unremarkable as visualized. Bones/joints: Unremarkable. No acute fracture. Soft tissues: Unremarkable. No significant soft tissue swelling. CT/CT neck w con* [id number] IMPRESSION: No acute findings.
--- NOTE | 2022-10-08 18:35 | W.ED.CHESTPA ---
HPI - Chest Pain General: Chief Complaint: Chest Pain Stated Complaint: SOB, Chest pain, High HR Time Seen by Provider: 10/08/22 17:51 Source: patient Mode of arrival: ambulatory Limitations: no limitations History of Present Illness: 42-year-old female states that she has been having some sharp chest pains over the last 2 days states that she is got a burning sensation states she had swelling and pain in her left neck as well. She denies any fevers denies any shortness of breath she is resting comfortably currently. Denies any vomiting or diarrhea. 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 Dr. Alcaraz. History of carpal tunnel surgery of left wrist 2020 - [place], [place] Dr. Holder. History of myringotomy History of tonsillectomy and adenoidectomy Family History Mother Diabetes Stroke Hypertension Breast cancer mother-- dx'd at 58 y/o Family/Other Breast cancer Maternal aunt Social History Smoking and tobacco status: never smoked Second hand smoke exposure: Yes Substance/Drug Use: never Physical Exam Const: COMMON NORMALS: no acute distress, patient oriented x3 and healthy appearing HENMT: COMMON NORMALS: normocephalic and atraumatic HEAD & SCALP: normocephalic and atraumatic Eye: COMMON NORMALS: Equal, round and reactive pupils present and EOMs intact bilaterally PUPIL: Yes Equal, round and reactive pupils present Neck/C-Spine: COMMON NORMALS: full ROM and supple Chest: COMMONS NORMALS: normal inspection of the chest OTHER: point tenderin center of chest Resp: COMMON NORMALS: normal respiratory effort, No retractions, No use of accessory muscles and clear to auscultation bilaterally AUSCULTATION: clear to auscultation bilaterally Cardio: COMMON NORMALS: regular rate, regular rhythm and No murmurs present (Cardio) RATE: regular rate RHYTHM: regular rhythm GI: COMMON NORMALS: Normal to inspection, nondistended, normoactive bowel sounds present, Soft to palpation, non-tender and no masses PALPATION: Yes Soft to palpation Extremity: COMMON NORMALS: normal to inspection and full ROM Neuro: COMMON NORMALS: patient oriented x3, moves all extremities and no focal motor deficits Psych: COMMON NORMALS: mental status grossly normal, Normal thought process present and cooperative THOUGHT PROCESS: Normal thought process present Skin: COMMON NORMALS: no rashes or lesions noted and no wounds GENERAL SKIN EXAM: no rashes or lesions noted Course Vital Signs: Vital signs: Vital Signs Temperature 98.1 F 10/08/22 15:24 Pulse Rate 111 H 10/08/22 18:00 Respiratory Rate 18 10/08/22 18:00 Blood Pressure 136/104 10/08/22 18:00 Pulse Oximetry 100 10/08/22 18:00 MDM - Chest Pain Medical Decision Making Patient presents here with chest pains atypical in nature her troponins are negative she is complaining of some anterior neck pain as well CT neck is normal no signs of any mass she is to follow-up with PCP she is to return if worsening she understands agrees to plan. Medical Records I reviewed the patient's medical records. Lab Data I reviewed the patient's lab results. 10/08/22 15:47 10/08/22 15:[address] 10/08/22 18:24 IMPRESSION: No acute findings. Laboratory Results WBC 8.83 10^3/uL (3.29-11.43) 10/08/22 15:47 RBC 4.07 10^6/uL (3.85-5.65) 10/08/22 15:47 Hgb 13.20 g/dL (11.27-16.99) 10/08/22 15:47 Hct 38.4 % (36-47) 10/08/22 15:47 MCV 94.3 fl (85-98) 10/08/22 15:47 MCH 32.4 pg (27-33) 10/08/22 15:47 MCHC 34.4 g/dL (30-55) 10/08/22 15:47 RDW 15.5 % (12.1-15.1) H 10/08/22 15:47 Plt Count 412 10^3/cmm (157-399) H 10/08/22 15:47 MPV 9.7 fL (7.4-10.4) 10/08/22 15:47 Neut % (Auto) 63.7 % 10/08/22 15:47 Lymph % (Auto) 26.6 % 10/08/22 15:47 [place] % (Auto) 6.5 % 10/08/22 15:47 Eos % (Auto) 1.5 % 10/08/22 15:47 Baso % (Auto) 1.0 % 10/08/22 15:47 Neut # (Auto) 5.63 10^3/uL (1.8-7.7) 10/08/22 15:47 Lymph # (Auto) 2.4 10^3/uL (0.8-4.8) 10/08/22 15:47 [place] # (Auto) 0.6 10^3/uL (0.2-0.9) 10/08/22 15:47 Eos # (Auto) 0.1 10^3/uL (0.0-0.8) 10/08/22 15:47 Baso # (Auto) 0.1 10^3/uL (0.0-0.1) 10/08/22 15:47 Nucleated RBC % (auto) 0 % 10/08/22 15:47 Nucleated RBCs # 0.0 /100WBC 10/08/22 15:47 Sodium 142 mmol/L (136-145) 10/08/22 15:47 Potassium 3.3 mmol/L (3.5-5.1) L 10/08/22 15:47 Chloride 106 mmol/L (98-107) 10/08/22 15:47 Carbon Dioxide 24 mmol/L (22-29) 10/08/22 15:47 Anion Gap 15.3 (5-19) 10/08/22 15:47 BUN 6 mg/dL (6-20) 10/08/22 15:47 Creatinine 0.7 mg/dL (0.5-0.9) 10/08/22 15:47 GFR Calculation 91.3 mL/min (90-130) 10/08/22 15:47 Glucose 77 mg/dL (65-115) 10/08/22 15:47 Calculated Osmolality 290 mOsm/kg (285-295) 10/08/22 15:47 Calcium 9.2 mg/dL (8.5-10.5) 10/08/22 15:47 Total Bilirubin 0.5 mg/dL (0.15-1.2) 10/08/22 15:47 AST 36 U/L (0-32) H 10/08/22 15:47 ALT 42 U/L (0-33) H 10/08/22 15:47 Alkaline Phosphatase 167 U/L (35-105) H 10/08/22 15:47 Troponin T Baseline 6 ng/L (0-10) 10/08/22 15:47 Troponin T 120 Minute 6.00 ng/L (0-10) 10/08/22 18:05 Delta Troponin T 0 ABS# (0-10) 10/08/22 18:05 Total Protein 7.2 g/dL (6.6-8.7) 10/08/22 15:47 Albumin 4.8 g/dL (3.5-5.2) 10/08/22 15:47 Globulin 2.4 g/dL (1.3-4.6) 10/08/22 15:47 Discharge Plan Discharge Patient Disposition: Home Clinical Impression: Chest pain, Neck pain Condition: Stable Prescriptions: No Action montelukast 10 mg tablet 10 mg PO DAILY omeprazole 20 mg capsule,delayed release(DR/EC) 20 mg PO DAILY ipratropium-albuterol 0.5 mg-3 mg(2.5 mg base)/3 mL solution for nebulization 3 ml inhalation TID meloxicam 15 mg tablet 15 mg PO DAILY acetaminophen 500 mg capsule 500 mg PO Q6H PRN levocetirizine 5 mg tablet 5 mg PO DAILY doxycycline hyclate 100 mg capsule 100 mg PO BID 7 Days Qty: 14 0RF mupirocin 2 % ointment 1 applic topical BID 14 Days Qty: 22 2RF multivitamin [One-A-Day Essential] Tablet 1 tab PO DAILY medroxyprogesterone 150 mg/mL syringe 150 mg IM prazosin 1 mg capsule 3 mg PO .q hs Qty: 90 2RF Rx Instructions: Take 3 capsules at bedtime hydroxyzine pamoate 25 mg capsule 25 mg PO TID PRN (Reason: anxiety) Qty: 90 2RF Rx Instructions: Take one capsule three times a day, if needed for anxiety, 4 to 6 hours apart buspirone 15 mg tablet 15 mg PO TID Qty: 90 2RF Rx Instructions: Take one tablet morning, afternoon, and evening; stop other dose duloxetine 60 mg capsule,delayed release(DR/EC) 60 mg PO .q am Qty: 30 2RF Rx Instructions: Take one capsule every morning famotidine 20 mg tablet 20 mg PO DAILY 5 Days Qty: 5 0RF Flovent HFA 110 mcg/actuation HFA aerosol inhaler 2 puff inhalation BID Qty: 12 3RF losartan 25 mg tablet 25 mg PO DAILY Qty: 30 3RF Bevespi Aerosphere 9-4.8 mcg HFA aerosol inhaler 2 puff inhalation BID Qty: 10.7 6RF albuterol sulfate 90 mcg/actuation HFA aerosol inhaler 2 puff inhalation Q6H PRN (Reason: shortness of breath or wheezing) Qty: 8.5 4RF Discharge Orders: Discharge ED (Routine); Ordered 10/08/22 Ordered By: Jayla Morales Referrals: Jorge Luis Nuñez DO [Primary Care Provider] - 1-3 days Discharge Diet: Advance as tolerated Discharge Activity: Resume usual activity Patient Instructions: Chest Pain (ED) Coding Level of Care Code ED Chart Changer for Paresh Mackey
[2022-10-08] MEDS: iohexol 350 mg/mL 500 mL Btl (per mL) IV (18:36)
[2022-10-08 18:42] LABS: Troponin 5 2HR Delta 0 ABS# (0-10)
--- NOTE | 2022-10-08 18:58 | ECG_ITS ---
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 Measurements Intervals [place] Rate: 101 P: 44 [place]: 134 QRS: 100 QRSD: 88 T: 4 QT: 373 QTc: 486 Interpretive Statements SINUS TACHYCARDIA INDETERMINATE AXIS LOW QRS VOLTAGE IN PRECORDIAL LEADS POSSIBLE RIGHT VENTRICULAR CONDUCTION DELAY [RSR (QR) IN V1/V2] MODERATE T-WAVE ABNORMALITY, CONSIDER ANTERIOR ISCHEMIA [-0.1+ mV T-WAVE IN V3/V4] Compared to ECG 10/08/2022 15:36:16 Right ventricular hypertrophy no longer present Left anterior fascicular block no longer present T-wave abnormality still present Possible ischemia still present Electronically Signed On 10-08-2022 20:52:35 CDT by Krista Hart M.D. [id number]
--- NOTE | 2022-10-08 20:37 | PC.NURSE ---
Patient refused discharge vitals
== END 2022-10-08 20:36 | disposition home or self-care (01) ==
PROVIDERS: Emergency Medicine; Emergency Provider Emergency Medicine; PCP Internal Medicine
DX: R07.9 Chest pain, unspecified (principal); M54.2 Cervicalgia; Z77.22 Contact with and (suspected) exposure to environmental tobacco smoke (acute) (chronic); I10 Essential (primary) hypertension
CPT/HCPCS: 36415; 70491; 71045; 80053; 84484; 85025; 93005; 99285; Q9967

== ENCOUNTER → 2022-10-19 06:39 | Outpatient (BNVA) | payer MEDICAID, SELFPAY | PROVIDERS: PCP Internal Medicine; Visit Provider Podiatrist Foot & Ankle Surgery | DX: L60.0 Ingrowing nail (principal) | CPT/HCPCS: 99213 ==

== ENCOUNTER → 2022-11-10 09:39 | Outpatient (BNVA) | payer MEDICAID, SELFPAY | PROVIDERS: PCP Internal Medicine; Visit Provider Anesthesiology Pain Medicine | DX: M54.12 Radiculopathy, cervical region (principal); G45.9 Transient cerebral ischemic attack, unspecified; D32.9 Benign neoplasm of meninges, unspecified; R10.12 Left upper quadrant pain; G80.9 Cerebral palsy, unspecified; M79.602 Pain in left arm; M79.7 Fibromyalgia | CPT/HCPCS: 99205 ==

== ENCOUNTER → 2022-11-11 07:00 | Outpatient (BNVA) | payer MEDICAID, SELFPAY | PROVIDERS: PCP Internal Medicine; Visit Provider Podiatrist Foot & Ankle Surgery | DX: L60.0 Ingrowing nail (principal); J82.83 Eosinophilic asthma; R07.9 Chest pain, unspecified; Z77.22 Contact with and (suspected) exposure to environmental tobacco smoke (acute) (chronic); R94.31 Abnormal electrocardiogram [ECG] [EKG]; I10 Essential (primary) hypertension; J45.909 Unspecified asthma, uncomplicated; R06.00 Dyspnea, unspecified | CPT/HCPCS: 11750; 99203; 99204 ==

== ENCOUNTER 2022-11-15 09:02 | Outpatient (CLI) | payer MEDICAID, SELFPAY ==
[2022-11-15 09:39] VITALS: BMI 38.0
--- NOTE | 2022-11-15 09:40 | ECG_ITS ---
[facility] Test Date: 2022-11-15 Pat Name: Stefano Cabezas Department: Room: Gender: Female Dialysis Patient Care Technician: Cyn Maravilla : 1980 Requested By: Mushtaq Fatima Order Number: [id number] Gabriela MD: Mushtaq Fatima M.D. Interpretive Statements NAME OF STUDY: EXERCISE SESTAMIBI STRESS TEST INDICATION: Chest Pain, PROCEDURE: The baseline electrocardiogram showed [normal sinus rhythm with some nonspecific ST-T changes in the anterior and inferior leads.. At the baseline, the patient's blood pressure was 152/107 mm Hg with a heart rate of 86. The patient exercised for 4 minutes and 44 seconds on a standard [place] protocol. Patient attained a maximum heart rate of 163 beats per minute(92% of the maximum predicted heart rate) with a blood pressure at the peak exercise of 165/79 mm Hg. The EKG at the peak exercise revealed slightly more prominent anterolateral ST-T changes. Patient did not have any chest pain or any significant arrhythmis with the exercise Sestamibi was injected 1 minute prior to the peak exercise During the recovery phase, there were no new changes. The EKG returned back to the baseline at the end of the recovery phase Blood pressure at the end of the recovery phase was 150/107 mm Hg with a heart rate of 92 per minute. CONCLUSION: 1. Nonspecific EKG changes with the treadmill exercise 2. No exercise-induced chest pain or cardiac arrhythmia 3. Slightly impaired exercise tolerance, attained a maximum of 7.0 METs 4. Sestamibi/Sestamibi perfusion results pending; see separate report. Electronically Signed On 11-22-2022 8:27:15 CDT by Mushtaq Fatima M.D. [id number]
--- NOTE | 2022-11-15 09:40 | NMCV_ITS ---
NM vira perf SPECT r/s* [id number] Stefano Cabezas Age: 42 Gender: F : 1980 Exam Date: 11/15/2022 10:43 Ordering Phys: Mushtaq Fatima MD ([email or web address]) Technologist: DEBBIE Matos Exam Location: [facility] Indications: CORONARY ANGIOPLASTY STATUS STRESS TEST Please see separate stress test report in [facility] for full findings IMAGE PROTOCOL Rest/Stress 1 Exercise Day Radiopharmaceutical Dose (mCi) Administration Site Administered by Rest: Tc-99m 10.7 IV DEBBIE Gibson Sestamibi Stress:Tc-99m 32.6 IV DEBBIE Gibson Sestamibi Rest: 15-Nov-2022 60 Discovery 630 Stress: 15-Nov-2022 15 Discovery 630 Radiopharmaceutical was injected at 87 % maximum heart rate. Images obtained in supine and prone position. SPECT RESULTS Technical Quality: Excellent Raw Data Analysis: Normal Image Corrections: No attenuation or motion correction applied Summed Stress Score: 0 Summed Rest Score: 0 Summed Difference Score: 0 PERFUSION FINDINGS Uniform myocardial tracer uptake with no significant perfusion abnormalities FUNCTIONAL RESULTS (calculated via Gated SPECT) Stress Image LV EF (%): 80 Stress EDV (mL):60 TID: 1 Stress ESV (mL):12 FUNCTIONAL FINDINGS: Segmental wall motion analysis revealing no gross wall motion abnormalities IMPRESSIONS 1. Uniform myocardial tracer uptake with no significant perfusion abnormalities. 2. Normal LV ejection fraction of 80%. 3. LV wall motion analysis revealing no gross wall motion abnormalities. 4. Normal LV volume. Low probability for coronary ischemia, based on the above findings Dr Mushtaq Fatima MD FACC (Electronically Signed) Final Date: 15 November 2022 18:52 S
[2022-11-15 09:48] LABS: HCG Qualitative Urine. Negative (Negative)
--- NOTE | 2022-11-15 11:22 | PC.NURSE ---
Physician Notified Dr. Fatima notified via phone for pre stress test BP 161/107. BP rechecked with similiar result 152/107. Verbal orders received to proceed with stress test and abort treadmill stress test is Diastolic BP >120.
[2022-11-15 11:36] VITALS: BP 150/107; PULSE 92
--- NOTE | 2022-11-15 11:44 | PC.NURSE ---
Stress test Pt tolerated stress test. BP ranged 160s/80's, target HR met. After exercise BP increased to 150/107 same as pre stress test.
== END 2022-11-15 09:03 | disposition home or self-care (01) ==
LOC: CDL 09:03
PROVIDERS: PCP Internal Medicine; Visit Provider Internal Medicine Cardiovascular Disease
DX: J82.83 Eosinophilic asthma (principal); R07.9 Chest pain, unspecified; Z77.22 Contact with and (suspected) exposure to environmental tobacco smoke (acute) (chronic); Z98.61 Coronary angioplasty status
CPT/HCPCS: 36415; 78452; 81025; 93017; 99204; 99214; A9500

== ENCOUNTER → 2022-11-25 06:21 | Outpatient (BNVA) | payer MEDICAID, SELFPAY | PROVIDERS: PCP Internal Medicine; Visit Provider Podiatrist Foot & Ankle Surgery | DX: L60.0 Ingrowing nail (principal); R23.4 Changes in skin texture | CPT/HCPCS: 99213 ==

== ENCOUNTER 2022-12-08 08:24 | Outpatient (CLI) | payer MEDICAID, SELFPAY ==
--- NOTE | 2022-12-08 08:45 | MR_ITS ---
WS: [id number] MRI CERVICAL SPINE NONCONTRAST HISTORY: M54.12 - Radiculopathy, cervical region COMPARISON: 04/02/2013 Technique: Multiplanar, multisequence noncontrast imaging of the cervical spine. Mild straightening of the normal cervical lordosis. Signal within the cervical cord is normal. Visualized posterior fossa is unremarkable. Craniocervical junction, C1 and C2 relationship, odontoid process and soft tissues are normal. C2-C3: Shallow RIGHT foramen disc osteophyte. No stenosis. C3-C4: Small bilateral foraminal osteophytes. Slightly greater encroachment upon the LEFT foramen. No high-grade stenosis. C4-C5: Mild annular disc bulge with a tiny central disc protrusion. Mild central stenosis. C5-C6: Mild osteophytic ridging and annular disc bulging. No disc protrusion. Mild central and bilate ral foraminal stenosis. C6-C7: New diffuse annular disc bulge with moderate central disc protrusion. Osteophytic ridging arou nd the vertebral bodies. Disc protrusion is slightly extruded inferiorly. Effacement of CSF. Moderate central and bilateral foraminal stenosis. Slightly greater stenosis RIGHT foramen. C7-T1: Normal. Paraspinal soft tissue are normal. IMPRESSION: 1. New, moderate central disc protrusion at C6-7 with osteophytic ridging. Disc is slightly extruded inferior to the disc level. Moderate central and bilateral foraminal stenosis. 2. Mild central and bilateral foraminal stenosis at C5-6. 3. Unchanged shallow RIGHT foramen disc protrusion at C2-3. 4. Mild central stenosis at C4-5.
== END 2022-12-08 08:25 | disposition home or self-care (01) ==
PROVIDERS: PCP Internal Medicine; Visit Provider Anesthesiology Pain Medicine
DX: M50.11 Cervical disc disorder with radiculopathy, high cervical region (principal); M48.02 Spinal stenosis, cervical region
CPT/HCPCS: 72141

== ENCOUNTER → 2022-12-09 08:58 | Outpatient (BNVA) | payer MEDICAID, SELFPAY | PROVIDERS: PCP Internal Medicine; Visit Provider Podiatrist Foot & Ankle Surgery | DX: L60.0 Ingrowing nail (principal); M50.90 Cervical disc disorder, unspecified, unspecified cervical region; M79.18 Myalgia, other site; G45.9 Transient cerebral ischemic attack, unspecified; D32.9 Benign neoplasm of meninges, unspecified; R10.12 Left upper quadrant pain; G80.9 Cerebral palsy, unspecified; R23.4 Changes in skin texture | CPT/HCPCS: 10060; 20553; 99214; J1030; J3490 ==

== ENCOUNTER → 2022-12-23 09:15 | Outpatient (BNVA) | payer MEDICAID, SELFPAY | PROVIDERS: PCP Internal Medicine; Visit Provider Podiatrist Foot & Ankle Surgery | DX: L60.0 Ingrowing nail (principal); R23.4 Changes in skin texture; G81.14 Spastic hemiplegia affecting left nondominant side | CPT/HCPCS: 11750; 64642; 95911; J0585 ==

== ENCOUNTER → 2022-12-28 10:42 | Outpatient (BNVA) | payer MEDICAID, SELFPAY | PROVIDERS: PCP Internal Medicine; Visit Provider Internal Medicine Cardiovascular Disease | DX: I10 Essential (primary) hypertension (principal); R94.31 Abnormal electrocardiogram [ECG] [EKG]; R06.00 Dyspnea, unspecified; Z86.73 Personal history of transient ischemic attack (TIA), and cerebral infarction without residual deficits | CPT/HCPCS: 99214 ==

== ENCOUNTER 2023-01-05 07:29 | Outpatient (CLI) | payer MEDICAID, SELFPAY ==
--- NOTE | 2023-01-05 07:40 | CT_ITS ---
WS: [id number] CT NECK TECHNIQUE: Contrast-enhanced CT of the neck with coronal and sagittal reformatted images. CLINICAL INFORMATION: DYSPHAGIA COMPARISON: CT 10/08/2022 DLP: 189.[address] scans at [facility] use at least one of these dose optimization techniques: automated e xposure control; mA and/or kV adjustment per patient size (includes targeted exams where dose is matc hed to clinical indication); or iterative reconstruction. FINDINGS: Retention cyst RIGHT sphenoid sinus measuring 11 mm. Mild mucosal thickening mastoid air cells. Prominent adenoid tissue with narrowing of the nasopharynx and oropharynx. Normal parapharyngeal fat. Parotid glands are normal. Normal submandibular glands. Normal thyroid gla nd. No cervical lymphadenopathy. Lung apices are well aerated. Mild spondylitic changes cervical spin e with straightening of the normal cervical lordosis. IMPRESSION: 1. No evidence of supraglottic or glottic mass. Normal subglottic airway. 2. Prominent adenoid tissue with narrowing of the nasopharynx and oropharynx. 3. Normal salivary glands. 4. 11 mm retention cyst RIGHT sphenoid sinus. 5. No other suspicious findings.
[2023-01-05] MEDS: iohexol 350 mg/mL 500 mL Btl (per mL) IV (08:10)
== END 2023-01-05 07:30 | disposition home or self-care (01) ==
LOC: RAD 07:29
PROVIDERS: PCP Internal Medicine; Visit Provider Specialist
DX: R13.10 Dysphagia, unspecified (principal); J39.2 Other diseases of pharynx; J34.1 Cyst and mucocele of nose and nasal sinus
CPT/HCPCS: 70491; Q9967

== ENCOUNTER → 2023-01-12 09:04 | Outpatient (BNVA) | payer MEDICAID, SELFPAY | PROVIDERS: PCP Internal Medicine; Visit Provider Anesthesiology Pain Medicine | DX: M51.17 Intervertebral disc disorders with radiculopathy, lumbosacral region (principal); M50.90 Cervical disc disorder, unspecified, unspecified cervical region; G45.9 Transient cerebral ischemic attack, unspecified; D32.9 Benign neoplasm of meninges, unspecified; R10.12 Left upper quadrant pain; G80.9 Cerebral palsy, unspecified | CPT/HCPCS: 99214 ==

== ENCOUNTER → 2023-02-08 13:36 | Outpatient (BNVA) | payer MEDICAID, SELFPAY | PROVIDERS: PCP Internal Medicine; Visit Provider Internal Medicine Cardiovascular Disease | DX: R00.2 Palpitations (principal); R00.0 Tachycardia, unspecified; I49.1 Atrial premature depolarization; I49.3 Ventricular premature depolarization | CPT/HCPCS: 93270 ==

== ENCOUNTER 2023-02-14 07:43 | Outpatient (CLI) | payer MEDICAID, SELFPAY ==
--- NOTE | 2023-02-14 07:51 | FL_ITS ---
WS: [id number] ID barium swallow [id number] REASON FOR EXAM: DYSPHAGIA FLUOROSCOPY TIME: 1min [id number] # OF SPOT FILMS: Multiple FINDINGS: Patient was evaluated in the standing AP and lateral position and in the prone KNUTSON position. Multiple swallows of barium were evaluated with fluoroscopy and multiple rapid sequence spot radiogra phs. The cervical esophagus demonstrated normal motility and anatomy. The mucosal surfaces of the posterio r oral, hypopharynx, and cervical esophagus to the level of the thoracic inlet has a spiculated balbina earance. The thoracic esophagus demonstrated no stricture or mass compression. The primary peristaltic wave th rough the thoracic esophagus was somewhat weak and there were intermittent episodes of mild tertiary contractions. No significant sliding hiatal hernia. No reflux was identified. IMPRESSION: Findings in the proximal esophagus and oral and hypopharynx which could indicate a submucosal or maegan cent inflammation. Minimal thoracic esophageal dysmotility.
== END 2023-02-14 07:44 | disposition home or self-care (01) ==
LOC: RAD 07:44
PROVIDERS: PCP Internal Medicine; Visit Provider Specialist
DX: M50.123 Cervical disc disorder at C6-C7 level with radiculopathy (principal); R13.10 Dysphagia, unspecified; M48.02 Spinal stenosis, cervical region; M50.90 Cervical disc disorder, unspecified, unspecified cervical region; G45.9 Transient cerebral ischemic attack, unspecified; D32.9 Benign neoplasm of meninges, unspecified; R10.12 Left upper quadrant pain; G81.14 Spastic hemiplegia affecting left nondominant side
CPT/HCPCS: 74220; 99214

== ENCOUNTER → 2023-03-01 08:24 | Outpatient (BNVA) | payer MEDICAID, SELFPAY | PROVIDERS: PCP Internal Medicine; Visit Provider Anesthesiology Pain Medicine | DX: M79.18 Myalgia, other site (principal); M48.02 Spinal stenosis, cervical region; M50.123 Cervical disc disorder at C6-C7 level with radiculopathy | CPT/HCPCS: 20553; 99213; J1030; J3490 ==

== ENCOUNTER 2023-03-02 16:50 | Day surgery (SDC) | payer MEDICAID, SELFPAY ==
[2023-03-02] VITALS (10 sets, daily range): BP systolic 132–160; BP diastolic 95–114; PULSE 96–112; RESP 16–21; TEMP 36.3–37.1; O2SAT 97–100; BMI 25.7
--- NOTE | 2023-03-02 17:21 | PC.NURSE ---
PT STATES SHE ATE A PORK CHOP 1 HOUR AGO AND FEELS LIKE IT IS STILL STUCK IN HER THROAT. PT APPEARS WITH A REDDENED FACE AND EYES ARE WATERING. PT STATES UNABLE TO DRINK AT THIS TIME. PT AIRWAY PATENT. PT RESPIRATIONS UNLABORED.
--- NOTE | 2023-03-02 17:22 | W.ED.GENADLT ---
HPI - General Adult General: Chief complaint: Airway/Esophagus Foreign Body Stated complaint: food stuck in throat Time Seen by Provider: 03/02/23 17:01 Source: patient Mode of arrival: ambulatory History of Present Illness: 42-year-old female presents emergency room with complaints of food stuck in her throat. She was eating a pork chop and get stuck in her throat she is able to tolerate some secretions but she cannot swallow any solids even secretions are difficult for she has mild discomfort still has a globus sensation in throat no stridor no difficulty with respiration. 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 Dr. Alcaraz. History of carpal tunnel surgery of left wrist 2020 - [place], [place] Dr. Holder. History of myringotomy History of tonsillectomy and adenoidectomy Family History Mother Diabetes Stroke Hypertension Breast cancer mother-- dx'd at 58 y/o Family/Other Breast cancer Maternal aunt Social History Smoking and tobacco/nicotine status: never used tobacco/nicotine Second hand smoke exposure: Yes Substance/Drug Use: never Physical Exam Const: GENERAL APPEARANCE: cooperative and comfortable ORIENTATION/CONSCIOUSNESS: Yes awake, Yes oriented to person, Yes oriented to place and Yes oriented to time HENMT: COMMON NORMALS: normocephalic, atraumatic and hearing grossly normal bilaterally HEAD & SCALP: normocephalic and atraumatic Resp: COMMON NORMALS: normal respiratory effort, No retractions, No use of accessory muscles and clear to auscultation bilaterally AUSCULTATION: clear to auscultation bilaterally Cardio: COMMON NORMALS: regular rate, regular rhythm and No murmurs present (Cardio) RATE: regular rate RHYTHM: regular rhythm GI: COMMON NORMALS: Soft to palpation and No hepatosplenomegaly present AUSCULTATION: Yes normoactive bowel sounds PALPATION: Yes Soft to palpation, No Tenderness to palpation present (GI), No Guarding due to palpation present (GI) and Yes No hepatosplenomegaly present Extremity: COMMON NORMALS: normal to inspection, capillary refill normal, no clubbing, cyanosis or edema, no calf tenderness and no pedal edema Neuro: SENSORIUM/ORIENTATION: Yes oriented to person, Yes oriented to place and Yes oriented to time Skin: COMMON NORMALS: no rashes or lesions noted GENERAL SKIN EXAM: no rashes or lesions noted Course Vital Signs: Vital signs: Vital Signs Temperature 98.8 F 03/02/23 16:51 Pulse Rate 112 H 03/02/23 16:51 Respiratory Rate 16 03/02/23 16:51 Blood Pressure 152/102 03/02/23 16:51 Pulse Oximetry 99 03/02/23 16:51 Oxygen Delivery Me thod Room Air 03/02/23 16:51 [facility] - General Adult Medical Decision Making Esophageal food impaction. On exam she has no stridor and hypopharynx appears normal. Discussed Dr. Vallejo he will take patient to GI lab for EGD Medical Records I reviewed the patient's medical records. No radiology studies performed this visit Discharge Plan Discharge Patient Disposition: Placed in Observation Clinical Impression: Esophageal obstruction due to food impaction Condition: Stable Prescriptions: No Action montelukast 10 mg tablet 10 mg PO DAILY omeprazole 20 mg capsule,delayed release(DR/EC) 20 mg PO DAILY ipratropium-albuterol 0.5 mg-3 mg(2.5 mg base)/3 mL solution for nebulization 3 ml inhalation TID meloxicam 15 mg tablet 15 mg PO DAILY acetaminophen 500 mg capsule 500 mg PO Q6H PRN levocetirizine 5 mg tablet 5 mg PO DAILY mupirocin 2 % ointment 1 applic topical BID 14 Days Qty: 22 2RF baclofen 10 mg tablet 10 mg PO DAILY nitroglycerin 0.4 mg tablet, sublingual 0.4 mg sublingual Q5M PRN (Reason: chest pain) 30 Days Qty: 30 3RF Rx Instructions: until response; do not exceed 3 doses per episode multivitamin [One-A-Day Essential] Tablet 1 tab PO DAILY medroxyprogesterone 150 mg/mL syringe 150 mg IM mupirocin 2 % ointment 1 applic topical BID Qty: 15 0RF doxycycline hyclate 100 mg capsule 100 mg PO BID Qty: 14 0RF isosorbide mononitrate 30 mg tablet extended release 24 hr 30 mg PO DAILY Qty: 30 5RF amlodipine 5 mg tablet 5 mg PO DAILY Qty: 90 3RF Bevespi Aerosphere 9-4.8 mcg HFA aerosol inhaler 2 puff inhalation BID Qty: 10.7 6RF losartan 50 mg tablet 50 mg PO DAILY Qty: 90 3RF levalbuterol tartrate [Xopenex HFA] 45 mcg/actuation HFA aerosol inhaler 2 inh inhalation Q6H Qty: 15 6RF prazosin 2 mg capsule 4 mg PO .q hs Qty: 60 2RF buspirone 10 mg tablet 20 mg PO BID Qty: 60 0RF Rx Instructions: Take two tablets every morning and evening duloxetine 60 mg capsule,delayed release(DR/EC) 60 mg PO .q am Qty: 14 0RF Rx Instructions: Take one capsule every morning hydroxyzine pamoate 25 mg capsule 25 mg PO BID PRN (Reason: anxiety) Qty: 30 0RF Rx Instructions: Take one capsule two times a day, if needed for anxiety, 4 to 6 hours apart gabapentin 100 mg capsule 100 mg PO BID Qty: 60 0RF Flovent HFA 110 mcg/actuation HFA aerosol inhaler 2 puff inhalation BID Qty: 12 3RF Referrals: Jorge Luis Nuñez DO [Primary Care Provider] - Coding Level of Care Code ED Heel Coverer for Lakeshia Narendra
--- NOTE | 2023-03-02 17:57 | PM.HP ---
Providers/Chief Complaint Primary Care Provider: Jorge Luis Nuñez DO Chief Complaint: food stuck in throat History of Present Illness Stefano Cabezas is a 42 year old female who presents to the hospital complaining of food getting stuck in her throat. She was eating pork chop and then she felt like something got stuck in her throat has been able to breathe with no stridor and a pharyngeal exam in the ED showed no evidence of fluid in the upper airway, she is able to clear some of her secretions still feels like something is stuck in her throat and therefore I was consulted for evaluation for food bolus impaction. Review of Systems General: Reports: 10 or more systems reviewed and unremarkable except in HPI and below Medications/Allergies Home Medications Medication Instructions Recorded Confirmed Last Taken Type montelukast 10 mg tablet 10 mg PO DAILY 09/04/20 03/01/23 04/15/21 History omeprazole 20 mg capsule,delayed 20 mg PO DAILY 10/06/20 03/01/23 04/15/21 History release ipratropium 0.5 mg-albuterol 3 mg 3 ml inhalation TID 11/27/20 03/01/23 04/15/21 History (2.5 mg base)/3 mL nebulization soln medroxyprogesterone 150 mg/mL 150 mg IM 08/11/21 03/01/23 Unknown History intramuscular syringe multivitamin (One-A-Day Essential 1 tab PO DAILY 08/11/21 03/01/23 Unknown History tablet) acetaminophen 500 mg capsule 500 mg PO Q6H PRN 09/24/21 03/01/23 Unknown History levocetirizine 5 mg tablet 5 mg PO DAILY 09/24/21 03/01/23 Unknown History meloxicam 15 mg tablet 15 mg PO DAILY 09/24/21 03/01/23 Unknown History glycopyrrolate 9 mcg-formoterol 2 puff inhalation BID #10.7 grams 08/23/22 03/01/23 Unknown Rx 4.8 mcg HFA aerosol inhaler (Bevespi [employer]) mupirocin 2 % topical ointment 1 applic topical BID 2 weeks #22 10/07/22 03/01/23 Unknown Rx grams baclofen 10 mg tablet 10 mg PO DAILY 11/11/22 03/01/23 Unknown History nitroglycerin 0.4 mg sublingual 0.4 mg sublingual Q5M PRN chest 11/11/22 03/01/23 Unknown Rx tablet pain 30 days #30 tabs doxycycline hyclate 100 mg capsule 100 mg PO BID #14 caps 12/23/22 03/01/23 Unknown Rx mupirocin 2 % topical ointment 1 applic topical BID #15 grams 12/23/22 03/01/23 Unknown Rx isosorbide mononitrate 30 mg 30 mg PO DAILY #30 tabs 12/28/22 03/01/23 Unknown Rx tablet,extended release 24 hr losartan 50 mg tablet 50 mg PO DAILY #90 tabs 12/31/22 03/01/23 Unknown Rx Xopenex HFA 45 mcg/actuation 2 inh inhalation Q6H #15 grams 01/04/23 03/01/23 Unknown Rx aerosol inhaler (levalbuterol tartrate) prazosin 2 mg capsule 4 mg (2 x 2 mg) PO .q hs #60 caps 02/04/23 03/01/23 Unknown Rx amlodipine 5 mg tablet 5 mg PO DAILY #90 tabs 02/08/23 03/01/23 Unknown Rx buspirone 10 mg tablet 20 mg (2 x 10 mg) PO BID #60 tabs 02/18/23 03/01/23 Unknown Rx duloxetine 60 mg capsule,delayed 60 mg PO .q am #14 caps 02/18/23 03/01/23 Unknown Rx release hydroxyzine pamoate 25 mg capsule 25 mg PO BID PRN anxiety #30 caps 02/18/23 03/01/23 Unknown Rx gabapentin 100 mg capsule 100 mg PO BID pain #60 caps 02/23/23 03/01/23 Unknown Rx fluticasone propionate 110 2 puff inhalation BID #12 grams 02/25/23 03/01/23 Unknown Rx mcg/actuation HFA aerosol inhaler (Flovent HFA) Allergies Allergy/AdvReac Type Severity Reaction Status Date / Time Sulfa (Sulfonamide Allergy Severe ALGY-Rash Verified 03/01/23 08:46 Antibiotics) hydrocodone Allergy Intermediate ALGY-Rash Verified 03/01/23 08:46 blackberry Allergy Unconscious Verified 03/01/23 08:46 Penicillins Allergy ALGY-Rash Verified 03/01/23 08:46 PFSH Acute PFSH: Medical History 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 Dr. Alcaraz. History of carpal tunnel surgery of left wrist 2020 - [place], [place] Dr. Holder. History of myringotomy History of tonsillectomy and adenoidectomy Family History Mother Diabetes Stroke Hypertension Breast cancer mother-- dx'd at 58 y/o Family/Other Breast cancer Maternal aunt Social History Smoking and tobacco/nicotine status: never used tobacco/nicotine Second hand smoke exposure: Yes Substance/Drug Use: never Vitals/I&O/Wt Last Vital Signs Temp 98.8 F 03/02/23 16:51 Pulse 112 H 03/02/23 16:51 Resp 16 03/02/23 16:51 BP 152/102 03/02/23 16:51 Pulse Ox 99 03/02/23 16:51 O2 Del Method Room Air 03/02/23 16:51 Weight last 48 hrs Weight 150 lb Physical Exam Narrative: General : Patient is well developed , in mild distress, oriented x3 Head : Normal cephalic, a-traumatic. Nose : Mucous membranes are without erythema. Lungs : Equal chest rise bilaterally, no use of accessory muscles, trachea is midline. CV : Rate and rhythm are normal. Abdomen : Soft, ND, NT, no g/r/m Extremities : No edema. Upper extremities are normal bilaterally. Back : non-tender to palpation, no CVA tenderness. A&P Assessment and plan (1) Esophageal obstruction due to food impaction: Plan 42-year-old female with a suspected food bolus impaction in the esophagus. Upper endoscopy with removal of foreign body is indicated, I have discussed all the risk and benefits of the procedure with the patient including the risks of perforation of the esophagus or stomach leading to sepsis and need for major surgery and possible transfer to higher level of care. Patient shows understanding and agrees to proceed. I have explained to the patient that no biopsies will be taken during these procedure and she will require repeat EGD in about 4 to 6 weeks. -On-call to GI suite -Patient will be discharged on Protonix and sucralfate after food bolus is removed. Attestations Medical Necessity Statement*: Patient will be discharged after procedure. Coding Level of Care Code Acute Code for Chg Fwd Diagnoses Esophageal obstruction due to food impaction T18.128A; [id number].F3XA
[2023-03-02] MEDS: sodium chloride 0.9% 1,000 ML 30 ML IV (18:10)
--- NOTE | 2023-03-02 18:24 | ANES.PREANE2 ---
Pre-Anesthetic Assessment Height/Weight: Height 1.63 m Weight 68.039 kg Temp Pulse Resp BP Pulse Ox O2 Del Method 97.6 F 103 H 21 H 160/114 100 Room Air 03/02/23 18:11 03/02/23 18:11 03/02/23 18:11 03/02/23 18:11 03/02/23 18:11 03/02/23 18:11 Operation Date: 03/02/23 18:30 Proposed Procedures p Foreign Body Removal(Not Applicable) - Madi Vallejo MD Familial anesthetic complications: none Was Beta Colleen taken within 24 hours: N/A Was Clonidine taken within 24 hours: N/A Last intake: Intake Last Liquid Date 03/02/23 Last Liquid Time 16:00 Last Solid Date 03/02/23 Last Solid Time 16:00 Social No alcohol and No tobacco Exam alert, oriented x 3, clear to auscultation bilaterally and regular rate & rhythm Airway Submandibular: within normal limits Cervical ROM: within normal limits Mallampati: Class II Dentition: false Comments: Comments: Dwarfism Pulmonary Asthma CV/HEM Hypertension GI Gastroesophageal Reflux Disease Neuropsych Anxiety, Depression and Transient Ischemic Attack Anesthetic Plan ASA status: 3E Anesthesia: General (RSI) Medications/Allergies Home Medications Medication Instructions Recorded Confirmed Last Taken Type montelukast 10 mg tablet 10 mg PO DAILY 09/04/20 03/01/23 04/15/21 History omeprazole 20 mg capsule,delayed 20 mg PO DAILY 10/06/20 03/01/23 04/15/21 History release ipratropium 0.5 mg-albuterol 3 mg 3 ml inhalation TID 11/27/20 03/01/23 04/15/21 History (2.5 mg base)/3 mL nebulization soln medroxyprogesterone 150 mg/mL 150 mg IM 08/11/21 03/01/23 Unknown History intramuscular syringe multivitamin (One-A-Day Essential 1 tab PO DAILY 08/11/21 03/01/23 Unknown History tablet) acetaminophen 500 mg capsule 500 mg PO Q6H PRN 09/24/21 03/01/23 Unknown History levocetirizine 5 mg tablet 5 mg PO DAILY 09/24/21 03/01/23 Unknown History meloxicam 15 mg tablet 15 mg PO DAILY 09/24/21 03/01/23 Unknown History glycopyrrolate 9 mcg-formoterol 2 puff inhalation BID #10.7 grams 08/23/22 03/01/23 Unknown Rx 4.8 mcg HFA aerosol inhaler ([employer]) mupirocin 2 % topical ointment 1 applic topical BID 2 weeks #22 10/07/22 03/01/23 Unknown Rx grams baclofen 10 mg tablet 10 mg PO DAILY 11/11/22 03/01/23 Unknown History nitroglycerin 0.4 mg sublingual 0.4 mg sublingual Q5M PRN chest 11/11/22 03/01/23 Unknown Rx tablet pain 30 days #30 tabs doxycycline hyclate 100 mg capsule 100 mg PO BID #14 caps 12/23/22 03/01/23 Unknown Rx mupirocin 2 % topical ointment 1 applic topical BID #15 grams 12/23/22 03/01/23 Unknown Rx isosorbide mononitrate 30 mg 30 mg PO DAILY #30 tabs 12/28/22 03/01/23 Unknown Rx tablet,extended release 24 hr losartan 50 mg tablet 50 mg PO DAILY #90 tabs 12/31/22 03/01/23 Unknown Rx Xopenex HFA 45 mcg/actuation 2 inh inhalation Q6H #15 grams 01/04/23 03/01/23 Unknown Rx aerosol inhaler (levalbuterol tartrate) prazosin 2 mg capsule 4 mg (2 x 2 mg) PO .q hs #60 caps 02/04/23 03/01/23 Unknown Rx amlodipine 5 mg tablet 5 mg PO DAILY #90 tabs 02/08/23 03/01/23 Unknown Rx buspirone 10 mg tablet 20 mg (2 x 10 mg) PO BID #60 tabs 02/18/23 03/01/23 Unknown Rx duloxetine 60 mg capsule,delayed 60 mg PO .q am #14 caps 02/18/23 03/01/23 Unknown Rx release hydroxyzine pamoate 25 mg capsule 25 mg PO BID PRN anxiety #30 caps 02/18/23 03/01/23 Unknown Rx gabapentin 100 mg capsule 100 mg PO BID pain #60 caps 02/23/23 03/01/23 Unknown Rx fluticasone propionate 110 2 puff inhalation BID #12 grams 02/25/23 03/01/23 Unknown Rx mcg/actuation HFA aerosol inhaler (Flovent HFA) Allergies Allergy/AdvReac Type Severity Reaction Status Date / Time Sulfa (Sulfonamide Allergy Severe ALGY-Rash Verified 03/01/23 08:46 Antibiotics) hydrocodone Allergy Intermediate ALGY-Rash Verified 03/01/23 08:46 blackberry Allergy Unconscious Verified 03/01/23 08:46 Penicillins Allergy ALGY-Rash Verified 03/01/23 08:46 Current Medications Generic Name Dose Route Start Last Admin Trade Name Jesus PRN Reason Stop Dose Admin Sodium Chloride 1,000 mls @ 30 mls/hr 03/02/23 17:43 03/02/23 18:10 Sodium Chloride 0.9% IV 03/03/23 17:42 30 mls/hr .Q24H ONE Administration PFSH Anesthesia Medical History 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 Dr. Alcaraz. History of carpal tunnel surgery of left wrist 2020 - [place], [place] Dr. Holder. History of myringotomy History of tonsillectomy and adenoidectomy Family History Mother Diabetes Stroke Hypertension Breast cancer mother-- dx'd at 58 y/o Family/Other Breast cancer Maternal aunt Social History Smoking and tobacco/nicotine status: never used tobacco/nicotine Second hand smoke exposure: Yes Substance/Drug Use: never Data Anesthesia Cardiac Studies: Echocardiogram 06/12/21 Sestamibi Stress Test (Cardiology) 11/15/22 Cardiac Event Monitor 02/08/23
--- NOTE | 2023-03-03 06:31 | ANE.PACU2 ---
Inpatient post-anesthesia follow up: Airway intact: Yes Vital signs: Temperature 97.5 F Pulse Rate 100 Respiratory Rate 18 Blood Pressure 143/97 Pulse Oximetry 99 Oxygen Delivery Me thod Room Air Oxygen Flow Rate Fraction of Inspir ed Oxygen Hydration adequate: Yes Nausea and vomiting: No Pain level: 2 Mental status: Baseline
== END 2023-03-02 19:25 | disposition home or self-care (01) ==
LOC: ER 17:28 → GILAB 18:01
PROVIDERS: Emergency Provider Family Medicine; PCP Internal Medicine; Visit Provider Surgery
DX: T17.228A Food in pharynx causing other injury, initial encounter (principal); W44.F3XA Food entering into or through a natural orifice, initial encounter; M79.7 Fibromyalgia
CPT/HCPCS: 43247; J0330; J2704; J7030

== ENCOUNTER 2023-03-15 08:42 | Outpatient (CLI) | payer MEDICAID, SELFPAY ==
[2023-03-15 08:58] VITALS: PULSE 67; RESP 18; O2SAT 98
[2023-03-15] MEDS: albuterol 2.5 mg/3 mL Neb INHALATION (08:59)
[2023-03-15 09:03] VITALS: PULSE 67
== END 2023-03-15 08:43 | disposition home or self-care (01) ==
PROVIDERS: PCP Internal Medicine; Visit Provider Specialist
DX: R13.19 Other dysphagia (principal); R94.2 Abnormal results of pulmonary function studies
CPT/HCPCS: 94060; J7613

== ENCOUNTER → 2023-03-16 08:17 | Outpatient (BNVA) | payer MEDICAID, SELFPAY | PROVIDERS: PCP Internal Medicine; Visit Provider Surgery | DX: Z09 Encounter for follow-up examination after completed treatment for conditions other than malignant neoplasm (principal) | CPT/HCPCS: 99213 ==

== ENCOUNTER → 2023-04-06 08:45 | Outpatient (BNVA) | payer MEDICAID, SELFPAY | PROVIDERS: PCP Internal Medicine; Visit Provider Nurse Practitioner Family | DX: I10 Essential (primary) hypertension (principal) | CPT/HCPCS: 99213 ==

== ENCOUNTER → 2023-04-21 08:36 | Outpatient (BNVA) | payer MEDICAID, SELFPAY | PROVIDERS: PCP Internal Medicine; Visit Provider Specialist | DX: G81.14 Spastic hemiplegia affecting left nondominant side (principal); G80.9 Cerebral palsy, unspecified; D32.9 Benign neoplasm of meninges, unspecified; R51.9 Headache, unspecified | CPT/HCPCS: 64642; 99213; J0585 ==

== ENCOUNTER 2023-04-28 10:07 | Day surgery (SDC) | payer MEDICAID, SELFPAY ==
--- NOTE | 2023-04-28 10:31 | P.HP_ITS ---
Same Day Surgery H&P Indication for Procedure/HPI DATE OF PROCEDURE: April 28, 2023 CHIEF COMPLAINT/INDICATIONFOR SURGICAL PROCEDURE: disphagia PREOP DIAGNOSIS: dysphagia PLANNED PROCEDURE: Operation Date: 04/28/23 11:20 Proposed Procedures p [address]50 egd w/balloon dialtion K22.2(Not Applicable) - Madi Vallejo MD Medications/Allergies* Home Medications Medication Instructions Recorded Confirmed Type montelukast 10 mg tablet 10 mg PO DAILY 09/04/20 04/26/23 History ipratropium 0.5 mg-albuterol 3 mg 3 ml inhalation TID 11/27/20 04/28/23 History (2.5 mg base)/3 mL nebulization soln multivitamin (One-A-Day Essential 1 tab PO DAILY 08/11/21 04/26/23 History tablet) acetaminophen 500 mg capsule 500 mg PO Q6H PRN Migraine Headache 09/24/21 04/26/23 History levocetirizine 5 mg tablet 5 mg PO DAILY 09/24/21 04/28/23 History meloxicam 15 mg tablet 15 mg PO DAILY 09/24/21 04/28/23 History baclofen 10 mg tablet 10 mg PO DAILY 11/11/22 04/28/23 History omeprazole 20 mg capsule,delayed mg 04/28/23 History release sucralfate 100 mg/mL oral 10 ml PO BID 04/28/23 04/28/23 History suspension (Carafate) Allergies/Adverse Reactions Allergy/AdvReac Type Severity Reaction Status Date / Time Sulfa (Sulfonamide Allergy Severe ALGY-Rash Verified 04/21/23 08:44 Antibiotics) hydrocodone Allergy Intermediate ALGY-Rash Verified 04/21/23 08:44 blackberry Allergy Unconscious Verified 04/21/23 08:44 Penicillins Allergy ALGY-Rash Verified 04/21/23 08:44 Pertinent History/Comorbid Conditions* Medical History (Updated 03/08/23 @ 10:18 by Nguyen Lima APRN) Major depressive disorder, recurrent episode with anxious distress 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 Dr. Alcaraz. History of carpal tunnel surgery of left wrist 2020 - [place], [place] Dr. Holder. History of myringotomy History of tonsillectomy and adenoidectomy Family History (Updated 10/02/19 @ 08:44 by Oriana Waldrop LPN) Diabetes Mother Breast cancer Mother mother-- dx'd at 58 y/o Family/Other Maternal aunt Hypertension Mother Stroke Mother Social History Smoking and tobacco/nicotine status: never used tobacco/nicotine Second hand smoke exposure: Yes Substance/Drug Use: never Pertinent Exam Findings alert, oriented x 3 and clear to auscultation bilaterally Recommendations Surgery/Procedure today Coding Level of Care Code Acute Code for Chg Fwd
[2023-04-28 10:33] VITALS: BP 107/74; PULSE 82; RESP 16; TEMP 36.3; O2SAT 98; BMI 37.5
[2023-04-28] MEDS: sodium chloride 0.9% 1,000 ML 30 ML IV (10:37)
[2023-04-28 10:40] LABS: OR HCG Qualitative Urine Negative (Negative)
--- NOTE | 2023-04-28 11:21 | P.ANESASSM_ITS ---
Pre-Anesthetic Assessment Height/Weight: Height 1.35 m Weight 68.039 kg Temp Pulse Resp BP Pulse Ox O2 Del Method 97.4 F L 82 16 107/74 98 Room Air 04/28/23 10:33 04/28/23 10:33 04/28/23 10:33 04/28/23 10:33 04/28/23 10:33 04/28/23 10:33 Preop Diagnosis: dysphagia Operation Date: 04/28/23 11:20 Proposed Procedures p 70734 egd w/balloon dialtion K22.2(Not Applicable) - Madi Vallejo MD Was Clonidine taken within 24 hours: N/A Last intake: Intake Last Liquid Date 04/27/23 Last Liquid Time 18:00 Last Solid Date 04/27/23 Last Solid Time 18:00 Social No alcohol and No tobacco Exam alert, oriented x 3, clear to auscultation bilaterally and regular rate & rhythm Airway Submandibular: within normal limits Cervical ROM: within normal limits Mallampati: Class II Dentition: false Comments: Comments: edentulous History/ROS No significant history except as noted and No significant complaints Pulmonary None reported CV/HEM Arrythmia None reported Hepatic None reported GI Dysphagia Metabolic None reported Musc/skel Dwarfism Neuropsych Anxiety, Depression and Neuropathy Anesthetic Plan ASA status: 3 Anesthesia: Anesthesia Evaluation and MAC Risk of > 500 ml blood loss (7ml/kg in children): No Medications/Allergies Home Medications Medication Instructions Recorded Confirmed Last Taken Type montelukast 10 mg tablet 10 mg PO DAILY 09/04/20 04/26/23 04/26/23 History ipratropium 0.5 mg-albuterol 3 mg 3 ml inhalation TID 11/27/20 04/28/23 04/27/23 History (2.5 mg base)/3 mL nebulization soln multivitamin (One-A-Day Essential 1 tab PO DAILY 08/11/21 04/26/23 04/26/23 History tablet) acetaminophen 500 mg capsule 500 mg PO Q6H PRN Migraine Headache 09/24/21 04/26/23 04/25/23 History levocetirizine 5 mg tablet 5 mg PO DAILY 09/24/21 04/28/23 04/27/23 History meloxicam 15 mg tablet 15 mg PO DAILY 09/24/21 04/28/23 04/27/23 History baclofen 10 mg tablet 10 mg PO DAILY 11/11/22 04/28/23 04/27/23 History nitroglycerin 0.4 mg sublingual 0.4 mg sublingual Q5M PRN chest 11/11/22 04/26/23 Unknown Rx tablet pain 30 days #30 tabs isosorbide mononitrate 30 mg 30 mg PO DAILY #30 tabs 12/28/22 04/28/23 04/27/23 Rx tablet,extended release 24 hr losartan 50 mg tablet 50 mg PO DAILY #90 tabs 12/31/22 04/26/23 04/26/23 Rx Xopenex HFA 45 mcg/actuation 2 inh inhalation Q6H #15 grams 01/04/23 04/26/23 04/26/23 Rx aerosol inhaler (levalbuterol tartrate) amlodipine 5 mg tablet 5 mg PO DAILY #90 tabs 02/08/23 04/28/23 04/27/23 Rx fluticasone propionate 110 2 puff inhalation BID #12 grams 02/25/23 04/28/23 04/27/23 Rx mcg/actuation HFA aerosol inhaler (Flovent HFA) metoprolol tartrate 25 mg tablet 25 mg PO BID #60 tabs 03/07/23 04/26/23 04/26/23 Rx buspirone 10 mg tablet 20 mg (2 x 10 mg) PO BID #120 tabs 03/08/23 04/28/23 04/27/23 Rx duloxetine 60 mg capsule,delayed 60 mg PO .q am #30 caps 03/08/23 04/28/23 04/27/23 Rx release hydroxyzine pamoate 25 mg capsule 25 mg PO BID PRN anxiety #60 caps 03/08/23 04/28/23 04/27/23 Rx prazosin 2 mg capsule 4 mg (2 x 2 mg) PO .q hs #60 caps 03/08/23 04/28/23 04/27/23 Rx glycopyrrolate 9 mcg-formoterol 2 puff inhalation BID #10.7 grams 03/30/23 04/28/23 04/27/23 Rx 4.8 mcg HFA aerosol inhaler (Bevespi [employer]osphere) gabapentin 100 mg capsule 100 mg PO BID pain #60 caps 02/04/28/23 04/27/23 Rx omeprazole 20 mg capsule,delayed mg 04/28/23 Unknown History release sucralfate 100 mg/mL oral 10 ml PO BID 04/28/23 04/28/23 04/27/23 History suspension (Carafate) Allergies Allergy/AdvReac Type Severity Reaction Status Date / Time Sulfa (Sulfonamide Allergy Severe ALGY-Rash Verified 04/21/23 08:44 Antibiotics) hydrocodone Allergy Intermediate ALGY-Rash Verified 04/21/23 08:44 blackberry Allergy Unconscious Verified 04/21/23 08:44 Penicillins Allergy ALGY-Rash Verified 04/21/23 08:44 Current Medications Generic Name Dose Route Start Last Admin Trade Name Freq PRN Reason Stop Dose Admin Sodium Chloride 1,000 mls @ 30 mls/hr 04/28/23 10:15 04/28/23 10:37 Sodium Chloride 0.9% IV 30 mls/hr .Q24H ALTAGRACIA Administration PFSH Anesthesia Medical History Major depressive disorder, recurrent episode with anxious distress 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 Dr. Alcaraz. History of carpal tunnel surgery of left wrist 2020 - [place], [place] Dr. Holder. History of myringotomy History of tonsillectomy and adenoidectomy Family History Mother Diabetes Stroke Hypertension Breast cancer mother-- dx'd at 58 y/o Family/Other Breast cancer Maternal aunt Social History Smoking and tobacco/nicotine status: never used tobacco/nicotine Second hand smoke exposure: Yes Substance/Drug Use: never Data Anesthesia Cardiac Studies: Echocardiogram 06/12/21 Sestamibi Stress Test (Cardiology) 11/15 Cardiac Event Monitor 02/08/23
[2023-04-28 12:38] VITALS: BP 106/67; PULSE 85; RESP 18; TEMP 36.2; O2SAT 96
[2023-04-28 12:48] VITALS: BP 109/75; PULSE 80; RESP 18; O2SAT 97
[2023-04-28 12:58] VITALS: BP 103/76; PULSE 83; RESP 18; O2SAT 99
--- NOTE | 2023-04-28 13:10 | ANE.PACU2 ---
Inpatient post-anesthesia follow up: Airway intact: Yes Vital signs: Temperature 97.2 F Pulse Rate 83 Respiratory Rate 18 Blood Pressure 103/76 Pulse Oximetry 99 Oxygen Delivery Me thod Room Air Oxygen Flow Rate Fraction of Inspir ed Oxygen Hydration adequate: Yes Nausea and vomiting: No Pain level: 1 Mental status: Baseline
== END 2023-04-28 13:10 | disposition home or self-care (01) ==
PROVIDERS: Anesthesiology; PCP Internal Medicine; Visit Provider Surgery
DX: R13.10 Dysphagia, unspecified (principal); K29.80 Duodenitis without bleeding; M79.7 Fibromyalgia; K29.50 Unspecified chronic gastritis without bleeding
CPT/HCPCS: 43239; 84703; 88305; 88342; J2704; J7030

== ENCOUNTER → 2023-05-31 08:58 | Outpatient (BNVA) | payer MEDICAID, SELFPAY | PROVIDERS: PCP Internal Medicine; Visit Provider Surgery | DX: Z09 Encounter for follow-up examination after completed treatment for conditions other than malignant neoplasm (principal); R22.1 Localized swelling, mass and lump, neck | CPT/HCPCS: 99213 ==

== ENCOUNTER → 2023-06-16 08:02 | Outpatient (BNVA) | payer MEDICAID, SELFPAY | PROVIDERS: PCP Internal Medicine; Visit Provider Internal Medicine Pulmonary Disease | DX: R06.00 Dyspnea, unspecified (principal); J45.909 Unspecified asthma, uncomplicated; T78.40XA Allergy, unspecified, initial encounter; R07.9 Chest pain, unspecified; Y99.9 Unspecified external cause status; I70.90 Unspecified atherosclerosis | CPT/HCPCS: 71046; 99214 ==

== ENCOUNTER → 2023-06-28 09:38 | Outpatient (BNVA) | payer MEDICAID, SELFPAY | PROVIDERS: PCP Internal Medicine; Visit Provider Internal Medicine Cardiovascular Disease | DX: R06.00 Dyspnea, unspecified (principal); I10 Essential (primary) hypertension; R94.31 Abnormal electrocardiogram [ECG] [EKG]; R00.0 Tachycardia, unspecified | CPT/HCPCS: 99214 ==

== ENCOUNTER → 2023-06-29 09:25 | Outpatient (BNVA) | payer MEDICAID, SELFPAY | PROVIDERS: PCP Internal Medicine; Visit Provider Anesthesiology Pain Medicine | DX: M54.9 Dorsalgia, unspecified (principal); M54.2 Cervicalgia; M79.18 Myalgia, other site | CPT/HCPCS: 99213; 99214 ==

== ENCOUNTER → 2023-07-21 13:37 | Outpatient (BNVA) | payer MEDICAID, SELFPAY | PROVIDERS: PCP Internal Medicine; Visit Provider Specialist | DX: G81.14 Spastic hemiplegia affecting left nondominant side (principal); D32.9 Benign neoplasm of meninges, unspecified; R51.9 Headache, unspecified; Z80.8 Family history of malignant neoplasm of other organs or systems; D22.5 Melanocytic nevi of trunk; L57.8 Other skin changes due to chronic exposure to nonionizing radiation; L81.4 Other melanin hyperpigmentation | CPT/HCPCS: 17110; 64642; 99213; J0585 ==

== ENCOUNTER → 2023-07-26 08:43 | Outpatient (BNVA) | payer MEDICAID, SELFPAY | PROVIDERS: PCP Internal Medicine; Visit Provider Anesthesiology Pain Medicine | DX: M79.18 Myalgia, other site (principal); M51.17 Intervertebral disc disorders with radiculopathy, lumbosacral region; M54.2 Cervicalgia | CPT/HCPCS: 20553; 99214; J1010; J3490 ==

== ENCOUNTER 2023-08-15 13:37 | Emergency (ER) | payer MEDICAID, SELFPAY ==
--- NOTE | 2023-08-15 13:40 | XR_ITS ---
WS: [id number] Portable AP upright chest, 08/15/2023 Clinical Data: cp Comparison: 2 view chest, 06/16/2023 Findings: No nodules, masses or effusions are seen. The heart is normal. The pulmonary vascularity is not increased. No pneumonia or pneumothorax is seen. The aortic arch and descending thoracic aorta s hows tortuosity. XR/XR chest 1V portable [id number] Impression: Atherosclerosis.
--- NOTE | 2023-08-15 13:40 | ECG_ITS ---
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 Measurements Intervals [place] Rate: 89 P: 26 TN: 131 QRS: 41 QRSD: 105 T: 3 QT: 366 QTc: 447 Interpretive Statements SINUS RHYTHM INDETERMINATE AXIS Compared to ECG 10/08/2022 18:58:23 Sinus tachycardia no longer present T-wave abnormality no longer present Possible ischemia no longer present Electronically Signed On 08-15-2023 14:32:49 CDT by Ludwig Kee M.D. [id number]
[2023-08-15 14:08] VITALS: BP 136/98; PULSE 91; RESP 16; TEMP 36.7; O2SAT 97
[2023-08-15 14:46] LABS: Basophils # 0.1 10^3/uL (0.0-0.1); Basophils % 0.8 %; Eosinophils # 0.2 10^3/uL (0.0-0.8); Eosinophils % 1.5 %; Lymphocytes % 21.3 %; Mean Corpuscular HGB Conc 34.4 g/dL (30-55); Mean Corpuscular Hemoglobin 32.3 pg (27-33); Mean Corpuscular Volume 93.9 fl (85-98); Mean Platelet Volume 9.8 fL (7.4-10.4); Monocytes # 0.7 10^3/uL (0.2-0.9); Monocytes % 5.1 %; Neutrophils # 9.69 10^3/uL (1.8-7.7); Neutrophils % 69.2 %; Nucleated Red Blood Cells % 0 %; Platelet Count 379 10^3/cmm (157-399); Red Blood Count 3.62 10^6/uL (3.85-5.65); Red Cell Distribution Width 15.1 % (12.1-15.1); White Blood Count 13.99 10^3/uL (3.29-11.43)
[2023-08-15 15:06] LABS: Troponin(5th) Baseline < 6 ng/L (0-10)
[2023-08-15 15:14] LABS: Alanine Aminotransferase 21 U/L (0-33); Alkaline Phosphatase 154 U/L (35-105); Anion Gap 15.2 (5-19); Aspartate Amino Transferase 19 U/L (0-32); Blood Urea Nitrogen 17 mg/dL (6-20); Calcium 9.2 mg/dL (8.5-10.5); Carbon Dioxide 20 mmol/L (22-29); Chloride 105 mmol/L (98-107); Creatinine Clr Calc Pharmacy 110.1584; Globulin 3.2 g/dL (1.3-4.6); Glomerular Filtration Rate 90.9 mL/min (90-130); Glucose 91 mg/dL (65-115); Lipase 28 U/L (13-60); NT Pro B Type Natriuretic Pept < 36 pg/mL (0-125); Osmolality Calculated 285 mOsm/kg (285-295); Potassium 3.2 mmol/L (3.5-5.1); Sodium 137 mmol/L (136-145); Total Bilirubin 0.4 mg/dL (0.15-1.2); Total Protein 7.2 g/dL (6.6-8.7)
[2023-08-15 15:15] LABS: INR 0.95 (0.8-1.2)
--- NOTE | 2023-08-15 15:40 | ECG_ITS ---
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 Measurements Intervals [place] Rate: 83 P: 35 SD: 136 QRS: 49 QRSD: 101 T: 7 QT: 381 QTc: 449 Interpretive Statements SINUS RHYTHM WITH SINUS ARRHYTHMIA INDETERMINATE AXIS Compared to ECG 08/15/2023 13:39:58 No significant changes Electronically Signed On 08-16-2023 9:01:17 CDT by Ludwig Kee M.D. [id number]
--- NOTE | 2023-08-15 16:55 | W.ED.CHESTPA ---
HPI - Chest Pain General: Chief Complaint: Chest Pain Stated Complaint: doc referral, chest pain, pulse high, low bp Time Seen by Provider: 08/15/23 16:41 Source: patient Mode of arrival: ambulatory History of Present Illness: 43-year-old female presents emergency room with complaint of chest pain has been going on for a week or more. She is worse when she palpates across her chest. She also has headache and elevated blood pressure at home although her blood pressure is normalized here. She states she feels edgy over the last week. 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 Dr. Alcaraz. History of carpal tunnel surgery of left wrist 2020 - [place], [place] Dr. Holder. History of myringotomy History of tonsillectomy and adenoidectomy Family History Mother Diabetes Stroke Hypertension Breast cancer mother-- dx'd at 58 y/o Family/Other Breast cancer Maternal aunt Social History Smoking and tobacco/nicotine status: never used tobacco/nicotine Second hand smoke exposure: Yes Substance/Drug Use: never Physical Exam Const: COMMON NORMALS: no acute distress GENERAL APPEARANCE: cooperative and comfortable ORIENTATION/CONSCIOUSNESS: Yes awake, Yes oriented to person, Yes oriented to place and Yes oriented to time HENMT: COMMON NORMALS: normocephalic, atraumatic and hearing grossly normal bilaterally HEAD & SCALP: normocephalic and atraumatic Chest: OTHER: Chest tender to palpation reproduces chest pain complaints. Resp: COMMON NORMALS: normal respiratory effort, No retractions, No use of accessory muscles and clear to auscultation bilaterally AUSCULTATION: clear to auscultation bilaterally Cardio: COMMON NORMALS: regular rate, regular rhythm and No murmurs present (Cardio) RATE: regular rate RHYTHM: regular rhythm GI: COMMON NORMALS: Soft to palpation and No hepatosplenomegaly present AUSCULTATION: Yes normoactive bowel sounds PALPATION: Yes Soft to palpation, No Tenderness to palpation present (GI), No Guarding due to palpation present (GI) and Yes No hepatosplenomegaly present Extremity: COMMON NORMALS: normal to inspection, capillary refill normal, no clubbing, cyanosis or edema, no calf tenderness and no pedal edema Neuro: SENSORIUM/ORIENTATION: Yes oriented to person, Yes oriented to place and Yes oriented to time Skin: COMMON NORMALS: no rashes or lesions noted GENERAL SKIN EXAM: no rashes or lesions noted Course Vital Signs: Vital signs: Vital Signs Temperature 98.0 F 08/15/23 14:08 Pulse Rate 91 08/15/23 14:08 Respiratory Rate 16 08/15/23 14:08 Blood Pressure 136/98 08/15/23 14:08 Pulse Oximetry 97 08/15/23 14:08 Oxygen Delivery Me thod Room Air 08/15/23 14:08 MDM - Chest Pain Medical Decision Making No signs of acute coronary syndrome. Patient has had the tenderness for the last week at least. At times she is reporting elevated blood pressure at home however blood pressure here is normal. Patient is reproducible chest pain with palpation and cardiac enzymes negative EKG does not show any acute changes. She does have a mildly elevated white count but her chest x-ray is normal no other signs of infection. Will discharge patient home have her follow-up with primary care doctor reevaluate blood pressure. Medical Records I reviewed the patient's medical records. Lab Data I reviewed the patient's lab results. 08/15/23 14:36 08/15/23 14:36 Radiology Impressions Chest X-Ray 08/15/23 13:40 Impression: Atherosclerosis. Laboratory Results WBC 13.99 10^3/uL (3.29-11.43) H 08/15/23 14:36 RBC 3.62 10^6/uL (3.85-5.65) L 08/15/23 14:36 Hgb 11.70 g/dL (11.27-16.99) 08/15/23 14:36 Hct 34.0 % (36-47) L 08/15/23 14:36 MCV 93.9 fl (85-98) 08/15/23 14:36 MCH 32.3 pg (27-33) 08/15/23 14:36 MCHC 34.4 g/dL (30-55) 08/15/23 14:36 RDW 15.1 % (12.1-15.1) 08/15/23 14:36 Plt Count 379 10^3/cmm (157-399) 08/15/23 14:36 MPV 9.8 fL (7.4-10.4) 08/15/23 14:36 Neut % (Auto) 69.2 % 08/15/23 14:36 Lymph % (Auto) 21.3 % 08/15/23 14:36 [place] % (Auto) 5.1 % 08/15/23 14:36 Eos % (Auto) 1.5 % 08/15/23 14:36 Baso % (Auto) 0.8 % 08/15/23 14:36 Neut # (Auto) 9.69 10^3/uL (1.8-7.7) H 08/15/23 14:36 Lymph # (Auto) 3.0 10^3/uL (0.8-4.8) 08/15/23 14:36 [place] # (Auto) 0.7 10^3/uL (0.2-0.9) 08/15/23 14:36 Eos # (Auto) 0.2 10^3/uL (0.0-0.8) 08/15/23 14:36 Baso # (Auto) 0.1 10^3/uL (0.0-0.1) 08/15/23 14:36 Nucleated RBC % (auto) 0 % 08/15/23 14:36 Nucleated RBCs # 0.0 /100WBC 08/15/23 14:36 PT 12.90 SECONDS (12.1-14.9) 08/15/23 14:36 INR 0.95 (0.8-1.2) 08/15/23 14:36 Sodium 137 mmol/L (136-145) 08/15/23 14:36 Potassium 3.2 mmol/L (3.5-5.1) L 08/15/23 14:36 Chloride 105 mmol/L (98-107) 08/15/23 14:36 Carbon Dioxide 20 mmol/L (22-29) L 08/15/23 14:36 Anion Gap 15.2 (5-19) 08/15/23 14:36 BUN 17 mg/dL (6-20) 08/15/23 14:36 Creatinine 0.7 mg/dL (0.5-0.9) 08/15/23 14:36 GFR Calculation 90.9 mL/min (90-130) 08/15/23 14:36 Glucose 91 mg/dL (65-115) 08/15/23 14:36 Calculated Osmolality 285 mOsm/kg (285-295) 08/15/23 14:36 Calcium 9.2 mg/dL (8.5-10.5) 08/15/23 14:36 Total Bilirubin 0.4 mg/dL (0.15-1.2) 08/15/23 14:36 AST 19 U/L (0-32) 08/15/23 14:36 ALT 21 U/L (0-33) 08/15/23 14:36 Alkaline Phosphatase 154 U/L (35-105) H 08/15/23 14:36 Troponin T Baseline < 6 ng/L (0-10) 08/15/23 14:36 Troponin T 120 Minute 6.00 ng/L (0-10) 08/15/23 17:00 Delta Troponin T 0.02650 ABS# (0-10) 08/15/23 17:00 NT-Pro-B Natriuret Pep < 36 pg/mL (0-125) 08/15/23 14:36 Total Protein 7.2 g/dL (6.6-8.7) 08/15/23 14:36 Albumin 4.0 g/dL (3.5-5.2) 08/15/23 14:36 Globulin 3.2 g/dL (1.3-4.6) 08/15/23 14:36 Lipase 28 U/L (13-60) 08/15/23 14:36 All radiology interpretation(s) finalized by discharge Discharge Plan Discharge Patient Disposition: Home Clinical Impression: Acute chest wall pain Condition: Stable Prescriptions: No Action montelukast 10 mg tablet 10 mg PO DAILY ipratropium-albuterol 0.5 mg-3 mg(2.5 mg base)/3 mL solution for nebulization 3 ml inhalation TID meloxicam 15 mg tablet 15 mg PO DAILY acetaminophen 500 mg capsule 500 mg PO Q6H PRN (Reason: Migraine Headache) levocetirizine 5 mg tablet 5 mg PO DAILY baclofen 10 mg tablet 10 mg PO DAILY nitroglycerin 0.4 mg tablet, sublingual 0.4 mg sublingual Q5M PRN (Reason: chest pain) 30 Days Qty: 30 3RF Rx Instructions: until response; do not exceed 3 doses per episode prednisone 10 mg tablet 10 mg PO DAILY Qty: 11 0RF Rx Instructions: 2 tabs x 10 mg = 20 mg x 3 days 1 tab x 10 mg = 10 mg x 5 days metoprolol tartrate 50 mg tablet 50 mg PO BID Qty: 60 5RF buspirone 10 mg tablet 20 mg PO BID Qty: 120 2RF Rx Instructions: Take two tablets every morning and evening duloxetine 60 mg capsule,delayed release(DR/EC) 60 mg PO .q am Qty: 30 2RF Rx Instructions: Take one capsule every morning duloxetine 20 mg capsule,delayed release(DR/EC) 20 mg PO .daily at 1 PM Qty: 30 2RF Rx Instructions: Take one capsule daily at 1 PM hydroxyzine pamoate 25 mg capsule 25 mg PO BID PRN (Reason: anxiety) Qty: 60 2RF Rx Instructions: Take one capsule two times a day, if needed for anxiety, 4 to 6 hours apart prazosin 5 mg capsule 5 mg PO .q hs Qty: 30 2RF Rx Instructions: Take one capsule daily at bedtime; stop other doses of this medication gabapentin 100 mg capsule See Rx Instructions .ROUTE .COMPLEX Qty: 60 0RF Dose Instruction: take 1 capsule BY MOUTH TWICE DAILY FOR pain Rx Instructions: take 1 capsule BY MOUTH TWICE DAILY FOR pain multivitamin [One-A-Day Essential] Tablet 1 tab PO DAILY amlodipine 5 mg tablet 5 mg PO DAILY Qty: 90 3RF Hold Instructions: Home Medication placed on hold at Doctor's office losartan 50 mg tablet 50 mg PO DAILY Qty: 90 3RF levalbuterol tartrate [Xopenex HFA] 45 mcg/actuation HFA aerosol inhaler 2 inh inhalation Q6H Qty: 15 6RF Bevespi Aerosphere 9-4.8 mcg HFA aerosol inhaler 2 puff inhalation BID Qty: 10.7 6RF isosorbide mononitrate 30 mg tablet extended release 24 hr 30 mg PO DAILY Qty: 90 3RF fluticasone propionate 110 mcg/actuation HFA aerosol inhaler 2 puff inhalation BID Qty: 12 6RF Carafate 100 mg/mL suspension 10 ml PO BID Qty: 400 0RF omeprazole 20 mg capsule,delayed release(DR/EC) 20 mg PO BID Qty: 120 0RF Discharge Orders: Discharge ED (Routine); Ordered 08/15/23 Ordered By: Hunter Leija Referrals: Jorge Luis Nuñez, [Primary Care Provider] - Discharge Diet: Usual diet Discharge Activity: Resume usual activity Patient Instructions: Opioid Safety, Pain Management Activity Restrictions/Additional Instructions: Thank you for choosing [facility] for your healthcare needs today. It is very important that you follow up as instructed or that you return to the Emergency Department should you have concerns or if your condition changes or worsens in any way. You are seen in the emergency room today for complaints of chest pain that had been going on for the past week. Your cardiac enzymes were negative your EKG did not show any acute changes. Your chest x-ray did not show any evidence of pneumonia. Your potassium was slightly low. Since her chest pain is reproducible with palpation of your chest wall it is most likely noncardiac. You should follow-up with your primary care doctor within the next week to review your blood pressure while you are in the emergency room your blood pressure was normal you did mention that you had several elevated readings at home. You should document these and bring them with you to your next doctor's appointment. Return if you have further problems. 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
[2023-08-15 17:26] LABS: Troponin 5 2HR Delta 0.00001 ABS# (0-10)
[2023-08-15 18:13] VITALS: BP 136/91; PULSE 94; O2SAT 96
== END 2023-08-15 18:42 | disposition home or self-care (01) ==
PROVIDERS: Emergency Medicine; Emergency Provider Family Medicine; PCP Internal Medicine
DX: R07.89 Other chest pain (principal); I10 Essential (primary) hypertension; E34.328 Other genetic causes of short stature
CPT/HCPCS: 36415; 71045; 80053; 83690; 83880; 84484; 85025; 85610; 93005; 99284

== ENCOUNTER 2023-08-20 20:51 | Observation (INO) | payer MEDICAID, SELFPAY ==
--- NOTE | 2023-08-20 21:01 | CTR_ITS ---
PROCEDURE INFORMATION: Exam: CT Head Without Contrast Exam date and time: 08/20/2023 8:53 PM Age: 43 years old Clinical indication: Stroke-like symptoms; Left facial droop; Lt upper extremity weakness; Additional info: EMS arrival for left facial droop and left upper ext weakness. PT C/O SALDAÑA. TECHNIQUE: Imaging protocol: Computed tomography of the head without contrast. Radiation optimization: All CT scans at this facility use at least one of these dose optimization techniques: automated exposure control; mA and/or kV adjustment per patient size (includes targeted exams where dose is matched to clinical indication); or iterative reconstruction. Other technique: STROKE PROTOCOL was implemented. COMPARISON: MR head wo/w con [id number] 08/24/2022 2:56 PM RADIATION DOSE METRICS: Total DLP (mGy-cm): 1140.88 FINDINGS: Brain: No acute infarct. No hemorrhage. Unremarkable white matter for age. No midline shift. 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 Cerebral ventricles: No ventriculomegaly. Paranasal sinuses: No significant inflammation. No fluid levels. Mastoid air cells: No significant inflammation. Orbital cavities: There is elongation of the posterior globes suggesting longstanding axial myopia unchanged. Bones: There is hyperostosis in the right sphenoid wing extending to the right squamous temporal bone which is similar to the comparison MRI. No acute fracture seen. Soft tissues: Unremarkable. CT/CT head thrombolytic [id number] IMPRESSION: No acute intracranial abnormality. ASSESSMENT: ASPECTS ([facility] Stroke Program Early CT Score) is 10.
[2023-08-20 21:03] VITALS: BP 101/63; PULSE 66; RESP 18; TEMP 36.6; O2SAT 98; BMI 37.5
--- NOTE | 2023-08-20 21:18 | ECG_ITS ---
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 Measurements Intervals [place] Rate: 61 P: 0 DE: 0 QRS: 59 QRSD: 85 T: 9 QT: 429 QTc: 436 Interpretive Statements Sinus rhythm with ectopic atrial beats LOW QRS VOLTAGE IN PRECORDIAL LEADS [QRS DEFLECTION < 1.0 mV IN CHEST LEADS] ABNORMAL RHYTHM ECG Compared to ECG 08/15/2023 13:39:58 Low QRS voltage now present Intermittent ectopic atrial beats are new Electronically Signed On 08-21-2023 13:26:41 CDT by Lor Leigh M.D. [id number]
--- NOTE | 2023-08-20 21:18 | CTR_ITS ---
PROCEDURE INFORMATION: Exam: CTA Head With Contrast, Arteriography Exam date and time: 08/20/2023 9:35 PM Age: 43 years old Clinical indication: Stroke-like symptoms; Left facial droop; Lt upper extremity weakness; Additional info: L sided weakness TECHNIQUE: Imaging protocol: Computed tomographic angiography of the head with contrast. Exam focused on the arteries. 3D rendering (Not supervised by radiologist): MIP and/or 3D reconstructed images were created by the technologist. Radiation optimization: All CT scans at this facility use at least one of these dose optimization techniques: automated exposure control; mA and/or kV adjustment per patient size (includes targeted exams where dose is matched to clinical indication); or iterative reconstruction. Contrast material: OMNI 350; Contrast volume: 100 ml; Contrast route: INTRAVENOUS (IV); COMPARISON: 1. CT head thrombolytic [id number] 08/20/2023 8:53 PM 2. MR head wo/w con [id number] 08/24/2022 2:56 PM RADIATION DOSE METRICS: Total DLP (mGy-cm): 506.5 FINDINGS: ANTERIOR CIRCULATION: Right internal carotid artery: Intracranial segment is patent with no significant stenosis. No aneurysm. Right middle cerebral artery: No occlusion or significant stenosis. No aneurysm. Right anterior cerebral artery: No occlusion or significant stenosis. No aneurysm. Left internal carotid artery: Intracranial segment is patent with no significant stenosis. No aneurysm. Left middle cerebral artery: No occlusion or significant stenosis. No aneurysm. Left anterior cerebral artery: No occlusion or significant stenosis. No aneurysm. POSTERIOR CIRCULATION: Right vertebral artery: No occlusion or significant stenosis. No aneurysm. Left vertebral artery: No occlusion or significant stenosis. No aneurysm. Basilar artery: No occlusion or significant stenosis. No aneurysm. Right posterior cerebral artery: The right PULLMAN CAR CLERK has anatomic variant origin. Left posterior cerebral artery: No occlusion or significant stenosis. No aneurysm. Brain: Enhancing mass in the region of the right planum sphenoidale measuring 7 mm maximum size is similar to the comparison CT. No mass effect or midline shift is noted. Cerebral ventricles: No ventriculomegaly. Bones/joints: Hyperostosis of the right sphenoid wing again present. Soft tissues: Unremarkable. PROCEDURE INFORMATION: Exam: CTA Neck With Contrast Exam date and time: 08/20/2023 9:35 PM Age: 43 years old Clinical indication: Stroke-like symptoms; Left facial droop; Lt upper extremity weakness; Additional info: L sided weakness TECHNIQUE: Imaging protocol: Computed tomographic angiography of the neck with contrast. Exam focused on the cervical segments of the vasculature. 3D rendering (Not supervised by radiologist): MIP and/or 3D reconstructed images were created by the technologist. Radiation optimization: All CT scans at this facility use at least one of these dose optimization techniques: automated exposure control; mA and/or kV adjustment per patient size (includes targeted exams where dose is matched to clinical indication); or iterative reconstruction. Contrast material: OMNI 350; Contrast volume: 100 ml; Contrast route: INTRAVENOUS (IV); COMPARISON: CT neck w con* [id number] 01/05/2023 8:01 AM RADIATION DOSE METRICS: Total DLP (mGy-cm): 1376.5 FINDINGS: Right common carotid artery: No stenosis. No dissection or occlusion. Right internal carotid artery: No stenosis of the extracranial segment. No dissection or occlusion. Right external carotid artery: No visible occlusion. Left common carotid artery: No stenosis. No dissection or occlusion. Left internal carotid artery: No stenosis of the extracranial segment. No dissection or occlusion. Left external carotid artery: No visible occlusion. Right vertebral artery: No stenosis. No dissection or occlusion. Left vertebral artery: No stenosis. No dissection or occlusion. Lymph nodes: Nonspecific mildly prominent mediastinal nodes are similar to the comparison neck CT. Soft tissues: No significant soft tissue swelling. Bones/joints: No acute fracture. CT/CT angio headneck* [id number] IMPRESSION: 1. No acute large vessel occlusion identified. 2. Mass in the right planum sphenoidale measuring 7 mm similar to comparison MRI. A repeat study can be performed for further assessment as indicated. IMPRESSION: No occlusion or significant stenosis. REFERENCES: NASCET CRITERIA. The degree of stenosis in the cervical segment of the internal carotid artery is based on NASCET criteria. Normal is no stenosis. Mild is less than 50% stenosis. Moderate is 50-69% stenosis. Severe is 70% to 99% stenosis. Total occlusion is no detectable patent lumen.
--- NOTE | 2023-08-20 21:18 | XRR_ITS ---
PROCEDURE INFORMATION: Exam: XR Chest Exam date and time: 08/20/2023 10:02 PM Age: 43 years old Clinical indication: Patient HX: Weakness; Stroke like symptoms TECHNIQUE: Imaging protocol: Radiologic exam of the chest. Views: 1 view. COMPARISON: CR XR chest 1V portable [id number] 08/15/2023 1:58 PM FINDINGS: Lungs: No consolidation. Pleural spaces: No pleural effusion. No pneumothorax. Heart/Mediastinum: Stable heart size. Bones/joints: Stable bones. XR/XR chest 1V portable [id number] IMPRESSION: No acute findings.
[2023-08-20 21:33] LABS: Basophils # 0.1 10^3/uL (0.0-0.1); Basophils % 0.6 %; Eosinophils # 0.2 10^3/uL (0.0-0.8); Eosinophils % 1.6 %; Hematocrit 30.9 % (36-47); Lymphocytes # 3.2 10^3/uL (0.8-4.8); Lymphocytes % 29.8 %; Mean Corpuscular HGB Conc 34.3 g/dL (30-55); Mean Corpuscular Hemoglobin 32.6 pg (27-33); Mean Corpuscular Volume 95.1 fl (85-98); Mean Platelet Volume 10.6 fL (7.4-10.4); Monocytes # 0.8 10^3/uL (0.2-0.9); Neutrophils # 6.36 10^3/uL (1.8-7.7); Neutrophils % 59.5 %; Nucleated Red Blood Cells % 0 %; Platelet Count 342 10^3/cmm (157-399); Red Blood Count 3.25 10^6/uL (3.85-5.65); Red Cell Distribution Width 15.5 % (12.1-15.1); White Blood Count 10.68 10^3/uL (3.29-11.43)
[2023-08-20] MEDS: sodium chloride 0.9% 500 ML 999 ML IV (21:34)
--- NOTE | 2023-08-20 21:35 | P.CONIM_ITS ---
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 The patient reports that she was at home and began experiencing slurred speech with left facial weakness and increased left arm and left leg weakness. Patient stated that she contacted her family who live next-door and she was instructed to contact EMS. Patient's last known well was 6:30 PM on 08/20/2023. The patient underwent stat noncontrast head CT which was reported to reveal no acute findings. There was report of the small meningioma in the right sphenoid wing. NIH score = 4 (secondary to mild dysarthria at 1+, mild drift in the left upper extremity and 1+, mild drift in the left lower extremity and 1+ and mild left lower facial weakness at 1+). Serum glucose pending at the time of this dictation Blood pressure revealed patient to be hypotensive 93/66 with heart rate of 68. Patient prescribed IV fluids by the ER physician with patient reporting improvement in the patient's left arm and left leg weakness. Note: Since the patient reported improvement in her left arm and left leg weakness with IV fluids, patient was not a candidate for intravenous thrombolytics and no intravenous thrombolytics were administered. CBC revealed a normal white count at 10.68, RBC was decreased at 3.25 (normal equals 3.5-5.6), H&H were decreased at 10.6 and 30.9 respectively. Platelet count was within normal limits at 342. Serum glucose 98 CT angiogram head and neck was negative for any large vessel occlusion. There was report of the meningioma in the right planum sphenoidale measuring 7 mm which appeared to be unchanged from head MRI performed in 2022 Drug allergies: Sulfonamide antibiotics which resulted in a rash Hydrocodone which resulted in a rash Penicillins which resulted in a rash Blackberries which resulted in loss of consciousness Current medications: Sublingual nitroglycerin 0.4 mg as needed Prednisone 10 mg p.o. daily Terazosin 5 mg p.o. daily Cymbalta 60 mg p.o. daily BuSpar 20 mg p.o. twice daily Norvasc 5 mg p.o. daily Losartan 50 mg p.o. daily Metoprolol 50 mg p.o. twice daily Singulair 10 mg p.o. daily Xoponex 45 mg Neurontin 100 mg p.o. to use as directed Isosorbide mononitrate ER 30 mg p.o. daily Levocetirizone 5 mg p.o. daily Mobic 15 mg p.o. daily Multivitamin 1 p.o. daily Omeprazole 20 mg p.o. twice daily Albuterol Vistaril 25 mg p.o. twice daily, as needed anxiety Baclofen 10 mg p.o. daily Past medical history: Small right sphenoid wing meningioma Cerebral palsy with left-sided spastic hemiplegia Right cerebral TIA August or September 2022 (head MRI August 2022 negative for stroke) Chronic small lacunar cerebellar infarction Hypertension Fibromyalgia Asthma Chest wall pain Major depressive disorder with recurrent episodes of anxiety Anxiety Cervical disc disease Reactive airway disease Dermoid tumor of the abdominal wall Exertional dyspnea Obstructive sleep apnea on CPAP Thoracic outlet syndrome Benign hypertrophic breast Dystonia Attention deficit hyperactivity disorder Carpal tunnel syndrome Dwarfism Habits: None Family history: Unknown Review of Systems 2 General: Reports: 10 or more systems reviewed and unremarkable except in HPI and below Medications/Allergies Home Medications Medication Instructions Recorded Confirmed Last Taken Type montelukast 10 mg tablet 10 mg PO DAILY 09/04/20 07/26/23 04/26/23 History ipratropium 0.5 mg-albuterol 3 mg 3 ml inhalation TID 11/27/20 07/26/23 04/27/23 History (2.5 mg base)/3 mL nebulization soln multivitamin (One-A-Day Essential 1 tab PO DAILY 08/11/21 07/26/23 04/26/23 History tablet) acetaminophen 500 mg capsule 500 mg PO Q6H PRN Migraine Headache 09/24/21 07/26/23 04/25/23 History levocetirizine 5 mg tablet 5 mg PO DAILY 09/24/21 07/26/23 04/27/23 History meloxicam 15 mg tablet 15 mg PO DAILY 09/24/21 07/26/23 04/27/23 History baclofen 10 mg tablet 10 mg PO DAILY 11/11/22 07/26/23 04/27/23 History nitroglycerin 0.4 mg sublingual 0.4 mg sublingual Q5M PRN chest 11/11/22 07/26/23 Unknown Rx tablet pain 30 days #30 tabs losartan 50 mg tablet 50 mg PO DAILY #90 tabs 12/31/22 07/26/23 04/26/23 Rx Xopenex HFA 45 mcg/actuation 2 inh inhalation Q6H #15 grams 01/04/23 07/26/23 04/26/23 Rx aerosol inhaler (levalbuterol tartrate) amlodipine 5 mg tablet 5 mg PO DAILY #90 tabs 02/08/23 07/26/23 04/27/23 Rx glycopyrrolate 9 mcg-formoterol 2 puff inhalation BID #10.7 grams 03/30/23 07/26/23 04/27/23 Rx 4.8 mcg HFA aerosol inhaler (Bevespi Aerosphere) omeprazole 20 mg capsule,delayed 20 mg PO BID #120 caps 04/28/23 07/26/23 Unknown Rx release sucralfate 100 mg/mL oral 10 ml PO BID #400 mL 04/28/23 07/26/23 Unknown Rx suspension (Carafate) isosorbide mononitrate 30 mg 30 mg PO DAILY #90 tabs 06/13/23 07/26/23 Unknown Rx tablet,extended release 24 hr prednisone 10 mg tablet 10 mg PO DAILY #11 tabs 06/16/23 07/26/23 Unknown Rx buspirone 10 mg tablet 20 mg (2 x 10 mg) PO BID #120 tabs 06/28/23 07/26/23 Unknown Rx duloxetine 20 mg capsule,delayed 20 mg PO .daily at 1 PM #30 caps 06/28/23 07/26/23 Unknown Rx release duloxetine 60 mg capsule,delayed 60 mg PO .q am #30 caps 06/28/23 07/26/23 Unknown Rx release hydroxyzine pamoate 25 mg capsule 25 mg PO BID PRN anxiety #60 caps 06/28/23 07/26/23 Unknown Rx metoprolol tartrate 50 mg tablet 50 mg PO BID #60 tabs 06/28/23 07/26/23 Unknown Rx prazosin 5 mg capsule 5 mg PO .q hs #30 caps 06/28/23 07/26/23 Unknown Rx fluticasone propionate 110 2 puff inhalation BID #12 grams 07/18/23 07/26/23 Unknown Rx mcg/actuation HFA aerosol inhaler gabapentin 100 mg capsule See Rx Instructions .Route 07/26/23 07/26/23 Unknown Rx .COMPLEX #60 caps Allergies Allergy/AdvReac Type Severity Reaction Status Date / Time Sulfa (Sulfonamide Allergy Severe ALGY-Rash Verified 08/15/23 14:17 Antibiotics) hydrocodone Allergy Intermediate ALGY-Rash Verified 08/15/23 14:17 blackberry Allergy Unconscious Verified 08/15/23 14:17 Penicillins Allergy ALGY-Rash Verified 08/15/23 14:17 Current Medications Generic Name Dose Route Start Last Admin Trade Name Freq PRN Reason Stop Dose Admin Sodium Chloride 500 mls @ 999 mls/hr 08/20/23 21:18 08/20/23 21:34 Sodium Chloride 0.9% IV 08/20/23 21:48 999 mls/hr .Q31M ONE Administration PFSH Acute 2 PFSH: Medical History Major depressive disorder, recurrent episode with anxious distress 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 Dr. Alcaraz. History of carpal tunnel surgery of left wrist 2020 - [place], [place] Dr. Holder. History of myringotomy History of tonsillectomy and adenoidectomy Family History Mother Diabetes Stroke Hypertension Breast cancer mother-- dx'd at 58 y/o Family/Other Breast cancer Maternal aunt Social History Smoking and tobacco/nicotine status: never used tobacco/nicotine Second hand smoke exposure: Yes Substance/Drug Use: never Vitals/I&O/Wt Last Vital Signs Temp 97.9 F 08/20/23 21:03 Pulse 66 08/20/23 21:03 Resp 18 08/20/23 21:03 BP 101/63 08/20/23 21:03 Pulse Ox 98 08/20/23 21:03 Weight last 48 hrs Weight 150 lb Physical Exam 2 Narrative: Blood pressure 93/66 with heart rate of 68, following IV fluids blood pressure 101/63 with a heart rate of 68 with patient reporting improvement in her left- sided weakness. NIH score = 4 (secondary to mild dysarthria at 1+, mild drift in the left upper extremity and 1+, mild drift in the left lower extremity and 1+ and mild left lower facial weakness at 1+). Serum glucose 98 The patient is alert and oriented to person place and situation. Head atraumatic. Neck Short. Cranial nerves II through XII revealed mild left lower facial weakness. Speech mildly dysarthric. Patient able to follow commands and answer questions appropriately. Motor testing revealed a drift in the left upper and left lower extremity and 1+ each. Deep tendon reflexes revealed plantar responses bilaterally. There was no clonus. Sensory examination was intact to touch. There was no extinction on double sensory stimulation. Throat clear. Lungs clear. Heart regular rhythm and rate. Extremities were negative for cyanosis. Data 08/20/23 20:33 08/20/23 20:33 A&P Assessment and plan (1) TIA (transient ischemic attack): Impression: 1. Transient ischemic attack versus right subcortical versus cortical infarct manifested as slurred speech with left facial weakness and increased left arm and left leg weakness associated with hypotension blood pressure 93/66. NIH score = 4 (secondary to mild dysarthria at 1+, mild drift in the left upper extremity and 1+, mild drift in the left lower extremity and 1+ and mild left lower facial weakness at 1+). The patient's last known well (LKW) was 6:30 PM on 08/20/2023 and code stroke was initiated at 8:49 PM reporting patient's ETA was [address] [facility] emergency room. Since the patient reported improvement in her left-sided weakness with IV saline bolus, patient was not a candidate for intravenous thrombolytics and no intravenous thrombolytics were administered. 2. Cerebral palsy with left-sided spastic hemiplegia 3. Right cerebral TIA August or September 2022 (head MRI August 2022 negative for stroke) 4. Chronic small lacunar cerebellar infarction 5. Hypertension with episodes of hypotension and tachycardia per patient's history 6. Major depression patient denies being homicidal suicidal 7. Anxiety 8. Small right sphenoid wing meningioma 9. Obstructive sleep apnea on CPAP 10. Asthma Plan: 1. Agree with IV normal saline for hypotension 2. Recommend aspirin 81 mg p.o. every morning with food first dose tonight 3. Lipitor 20 mg p.o. nightly per NIH stroke protocol 4. Recommend obtaining head MRI with and without contrast in a.m. to further assess for right subcortical versus cortical infarction and the reported meningioma in the right sphenoid wing. 5. Neurochecks and vital signs per NIH stroke protocol 6. Recommend hypotension be addressed to determine if patient's antihypertensive medications require adjusting 7. Please give patient and patient's family a stroke pamphlet 8. Recommend cardiac evaluation for reports of episodic palpitations 9. Recommend speech path, Occupational Therapy and physical therapy consults 10. Fall precautions Consult Attestations 2 Medical Necessity Statement: The patient was evaluated by neurology for code stroke/acute care emergency department room #5 Coding Level of Care Code 94698 Diagnoses TIA (transient ischemic attack) G45.9
[2023-08-20 21:37] LABS: INR 0.99 (0.8-1.2); Partial Thromboplastin Time 25.9 SECONDS (23.9-36.7)
[2023-08-20] MEDS: iohexol 350 mg/mL 500 mL Btl (per mL) IV (21:42)
[2023-08-20 21:43] LABS: Alanine Aminotransferase 22 U/L (0-33); Albumin Level 3.9 g/dL (3.5-5.2); Alkaline Phosphatase 120 U/L (35-105); Anion Gap 16.9 (5-19); Aspartate Amino Transferase 19 U/L (0-32); Blood Urea Nitrogen 8 mg/dL (6-20); Calcium 8.6 mg/dL (8.5-10.5); Carbon Dioxide 19 mmol/L (22-29); Chloride 109 mmol/L (98-107); Creatinine Clr Calc Pharmacy 96.3886; Globulin 2.6 g/dL (1.3-4.6); Glomerular Filtration Rate 77.9 mL/min (90-130); Glucose 98 mg/dL (65-115); Osmolality Calculated 292 mOsm/kg (285-295); Sodium 142 mmol/L (136-145); Total Bilirubin 0.2 mg/dL (0.15-1.2); Total Protein 6.5 g/dL (6.6-8.7)
[2023-08-20 21:49] LABS: Potassium 2.9 mmol/L (3.5-5.1)
--- NOTE | 2023-08-20 22:17 | ED_ITS ---
HPI - Neuro Symptoms/Deficit 2 General: Chief Complaint: Neuro Symptoms/Deficit Stated Complaint: STROKE Time Seen by Provider: 08/20/23 21:08 History of Present Illness: 43-year-old female, evidently with a his tory of stroke last September. She also has a history of CP. She presents with onset of symptoms sometime after 6:30 PM. She complains of a headache across the frontal region of her head, left- sided upper extremity weakness, and left-sided lower extremity weakness with some facial droop and dysarthria. She normally has left-sided upper extremity weakness from her CP. Lower extremity weakness she says is new. She has not been ill otherwise. No fever. No vomiting. No diarrhea. The patient came in as a stroke alert, and the patient is seen after going straight to CAT scan, in the ER room alongside neurology who is evaluating the patient as well. 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 Dr. Alcaraz. History of carpal tunnel surgery of left wrist 2020 - [place], [place] Dr. Holder. History of myringotomy History of tonsillectomy and adenoidectomy Family History Mother Diabetes Stroke Hypertension Breast cancer mother-- dx'd at 58 y/o Family/Other Breast cancer Maternal aunt Social History Smoking and tobacco/nicotine status: never used tobacco/nicotine Second hand smoke exposure: Yes Substance/Drug Use: never NIH stroke score 2 NIHSS: Level Of Consciousness - 1a: 0 Level Of Consciousness Questions - 1b: Both Correct Level Of Consciousness Commands - 1c: Both Correct Best Gaze - 2: Normal Visual Davila - 3: No Visual Loss Facial Palsy - 4: Minor Paralysis Motor Arm Right - 5: No Drift Motor Arm Left - 5: Drift Motor Leg Right - 6: No Drift Motor Leg Left - 6: Drift Limb Ataxia - 7: Absent Sensory - 8: Normal Best Language - 9: No Aphasia Dysarthia - 10: M ild/Moderate Dysarthia Extinction And Inattention - 11: 0 Score: Total Score: 4 Physical Exam 2 Const: COMMON NORMALS: no acute distress GENERAL APPEARANCE: cooperative; not ill appearing and not frail appearing HENMT: COMMON NORMALS: normocephalic, atraumatic and Normal external nose present HEAD & SCALP: normocephalic and atraumatic FACE & SINUS: normal facial exam and face symmetric NOSE: Normal external nose present Eye: COMMON NORMALS: Equal, round and reactive pupils present and EOMs intact bilaterally PUPIL: Yes Equal, round and reactive pupils present Neck/C-Spine: GENERAL: Yes trachea midline Chest: CHEST: Yes Symmetrical chest wall rise Resp: COMMON NORMALS: normal respiratory effort, No retractions, No use of accessory muscles and clear to auscultation bilaterally AUSCULTATION: clear to auscultation bilaterally Cardio: COMMON NORMALS: regular rate and regular rhythm RATE: regular rate RHYTHM: regular rhythm GI: COMMON NORMALS: Normal to inspection, nondistended, normoactive bowel sounds present Extremity: COMMON NORMALS: no pedal edema Neuro: IKRBY COMA SCALE: document GCS findings [place] coma scale eye opening: Spontaneous [place] coma scale verbal response: Orientated [place] coma scale motor response: Obey commands [place] coma scale total score: 15 S ENSORY EXAM: Yes extremities (intact) Psych: COMMON NORMALS: speech normal SPEECH: Yes normal speech Skin: COMMON NORMALS: no rashes or lesions noted GENERAL SKIN EXAM: no rashes or lesions noted Course 2 Vital Signs: Vital signs: Vital Signs Temperature 97.9 F 08/21/23 01:02 Pulse Rate 66 08/21/23 01:49 Respiratory Rate 16 08/21/23 01:02 Blood Pressure 105/80 08/21/23 01:02 Pulse Oximetry 98 08/21/23 01:02 Oxygen Delivery Me thod Room Air 08/21/23 02:18 MDM - Neuro Symptoms/Deficit Medical Decision Making This patient is seen in conjunction with neurology, who is evaluating at the same time as I at the bedside. NIH is 4. As the patient had prior left upper extremity weakness, likely some left lower extremity weakness, hard to discern what is new and what is not in this patient, especially with a history of CP. Weakness is improved after initial fluid bolus, given her soft blood pressure of 100 systolic on presentation, sinking to 95 systolic after arrival. She believes her weakness is improved after initial fluid bolus. Neurology does not wish to give her thrombolytic at this time given improving symptoms with somewhat nebulous history, as I agree. Recommendations are observation, continued fluid support, aspirin, and statin. On laboratory testing, she is noted to be anemic with a hemoglobin of 10.6, with potassium of 2.9. This is repleted. This may be contributing to her weakness as well. CTA was read initially as negative for acute findings. CTA shows no large vessel occlusion. Chest x-ray is nonacute as well. Lab Data 08/20/23 20:33 08/20/23 20:[address] 08/20/23 21:01 IMPRESSION: No acute intracranial abnormality. ASSESSMENT: ASPECTS ([place] Stroke Program Early CT Score) is 10. Chest X-Ray 08/20/23 21:18 IMPRESSION: No acute findings. Head/Neck CTA 08/20/23 21:18 IMPRESSION: 1. No acute large vessel occlusion identified. 2. Mass in the right planum sphenoidale measuring 7 mm similar to comparison MRI. A repeat study can be performed for further assessment as indicated. IMPRESSION: No occlusion or significant stenosis. REFERENCES: NASCET CRITERIA. The degree of stenosis in the cervical segment of the internal carotid artery is based on NASCET criteria. Normal is no stenosis. Mild is less than 50% stenosis. Moderate is 50-69% stenosis. Severe is 70% to 99% stenosis. Total occlusion is no detectable patent lumen. Laboratory Results WBC 10.68 10^3/uL (3.29-11.43) 08/20/23 20: RBC 3.25 10^6/uL (3.85-5.65) L 08/20/23 20:33 Hgb 10.60 g/dL (11.27-16.99) L 08/20/23 20: Hct 30.9 % (36-47) L 08/20/23 20: MCV 95.1 fl (85-98) 08/20/23 20: MCH 32.6 pg (27-33) 08/20/23 20: MCHC 34.3 g/dL (30-55) 08/20/23 20: RDW 15.5 % (12.1-15.1) H 08/20/23 20:33 Plt Count 342 10^3/cmm (157-399) 08/20/23 20: MPV 10.6 fL (7.4-10.4) H 08/20/23 20:33 Neut % (Auto) 59.5 % 08/20/23 20: Lymph % (Auto) 29.8 % 08/20/23 20:33 Grant % (Auto) 7.0 % 08/20/23 20: Eos % (Auto) 1.6 % 08/20/23 20: Baso % (Auto) 0.6 % 08/20/23 20: Neut # (Auto) 6.36 10^3/uL (1.8-7.7) 08/20/23 20: Lymph # (Auto) 3.2 10^3/uL (0.8-4.8) 08/20/23 20:33 Grant # (Auto) 0.8 10^3/uL (0.2-0.9) 08/20/23 20: Eos # (Auto) 0.2 10^3/uL (0.0-0.8) 08/20/23 20: Baso # (Auto) 0.1 10^3/uL (0.0-0.1) 08/20/23 20: Nucleated RBC % (auto) 0 % 08/20/23: Nucleated RBCs # 0.0 /100WBC 08/20/23 20: PT 13.40 SECONDS (12.1-14.9) 08/20/23 20: INR 0.99 (0.8-1.2) 08/20/23 20: APTT 25.9 SECONDS (23.9-36.7) 08/20/23 20:33 Sodium 142 mmol/L (136-145) 08/20/23 20:33 Potassium 2.9 mmol/L (3.5-5.1) L 08/20/23 20:33 Chloride 109 mmol/L (98-107) H 08/20/23 20:33 Carbon Dioxide 19 mmol/L (22-29) L 08/20/23 20:33 Anion Gap 16.9 (5-19) 08/20/23 20:33 BUN 8 mg/dL (6-20) 08/20/23 20:33 Creatinine 0.8 mg/dL (0.5-0.9) 08/20/23 20:33 GFR Calculation 77.9 mL/min (90-130) L 08/20/23 20:33 Glucose 98 mg/dL (65-115) 08/20/23 20:33 Calculated Osmolality 292 mOsm/kg (285-295) 08/20/23 20:33 Calcium 8.6 mg/dL (8.5-10.5) 08/20/23 20:33 Total Bilirubin 0.2 mg/dL (0.15-1.2) 08/20/23 20:33 AST 19 U/L (0-32) 08/20/23 20:33 ALT 22 U/L (0-33) 08/20/23 20:33 Alkaline Phosphatase 120 U/L (35-105) H 08/20/23 20:33 Total Protein 6.5 g/dL (6.6-8.7) L 08/20/23 20:33 Albumin 3.9 g/dL (3.5-5.2) 08/20/23 20:33 Globulin 2.6 g/dL (1.3-4.6) 08/20/23 20:33 Urine Color Yellow (Yellow) 08/20/23 22:33 Urine Appearance Clear (CLEAR) 08/20/23 22:33 Urine pH 5 (5-7) 08/20/23 22:33 Ur Specific [place] 1.005 (1.005-1.030) 08/20/23 22:33 Urine Protein Neg (Negative) 08/20/23 22:33 Urine Glucose (UA) Norm (Normal) 08/20/23 22:33 Urine Ketones Negative (Negative) 08/20/23 22:33 Urine Blood Neg (Negative) 08/20/23 22:33 Urine Nitrate Negative (Negative) 08/20/23 22:33 Urine Bilirubin Neg (Negative) 08/20/23 22: Urine Urobilinogen Neg mg/dL (Negative) 08/20/23 22:33 Ur Leukocyte Esterase 1+ (Negative) H 08/20/23 22:33 Urine RBC 0-4 /hpf (0-2) H 08/20/23 22:33 Urine WBC 5-10 /hpf (0-5) H 08/20/23 22:33 Ur Squamous Epith Cells 0-4 /hpf (0-5) H 08/20/23 22:33 Amorphous Sediment Not Reportable 08/20/23 22:33 Urine Bacteria Trace /hpf (NONE) 08/20/23 22:33 Urine Opiates Screen Negative ng/mL (Negative) 08/20/23 22:33 Ur Barbiturates Screen Negative ng/mL (Negative) 08/20/23 22:33 Ur Phencyclidine Scrn Negative ng/mL (Negative) 08/20/23 22:33 Ur Amphetamines Screen Negative ng/mL (Negative) 08/20/23 22:33 U Benzodiazepines Scrn Negative ng/mL (Negative) 08/20/23 22:33 Urine Cocaine Screen Negative ng/mL (Negative) 08/20/23 22:33 U Marijuana (THC) Screen Negative ng/mL (Negative) 08/20/23 22:33 All radiology interpretation(s) finalized by discharge Discharge Plan Discharge Patient Disposition: Admitted As Inpatient Admit Provider: Ayan Cabral Clinical Impression: Cerebral palsy, Headache, Weakness Condition: Stable Coding Level of Care Code ED Folder Inspector for Paresh Mackey
[2023-08-20 22:22] VITALS: BP 127/91; PULSE 65; RESP 15; O2SAT 99
[2023-08-20] MEDS: potassium chloride oral liq 20 mEq/15 mL UDC 40 MEQ PO (23:00)
[2023-08-20 23:05] VITALS: BP 107/52; PULSE 74; RESP 16; O2SAT 99
[2023-08-20] MEDS: lidocaine 1% 5 ML in potassium chloride premix 100 ML 52.5 ML IV (23:07)
[2023-08-20 23:15] VITALS: BP 126/81; PULSE 70; RESP 18; O2SAT 99
[2023-08-20 23:16] LABS: Amphetamines Screen Urine Negative (Negative); Barbiturates Screen Urine Negative (Negative); Benzodiazepines Screen Urine Negative (Negative); Cocaine Screen Urine Negative (Negative); Opiate Screen Urine Negative (Negative); PCP Screen Urine Negative (Negative); THC Screen Urine Negative (Negative)
[2023-08-20 23:23] LABS: Add Urine Microscopic? YES; Bilirubin Urine Neg (Negative); Blood Urine Neg (Negative); Glucose Urine UA Norm (Normal); Ketones Urine Negative (Negative); Leukocyte Esterase Urine 1+ (Negative); Nitrate Urine Negative (Negative); Protein Urine Neg (Negative); Specific Gravity, Urine 1.005 (1.005-1.030); Urine Appearance Clear (CLEAR); Urine Color Yellow (Yellow); Urobilinogen Urine Neg (Negative); pH Urine 5 (5-7)
[2023-08-20 23:24] LABS: Bacteria Urine TRACE /hpf; RBC Urine 0-4 /hpf (0-2); Squamous Epithelial Cell Urine 0-4 /hpf (0-5)
--- NOTE | 2023-08-20 23:26 | P.HP_ITS ---
Providers/Chief Complaint 2 Primary Care Provider: Jorge Luis Nuñez DO Chief Complaint: STROKE History of Present Illness Stefano Cabezas is a 43 year old female who was evaluated in the ER by Dr. Calderon for code stroke. Patient was diagnosed with TIA, there was concern for left-sided weakness, facial droop which started around 6:30 PM, as per the family patient is cerebral palsy with weakness on left side as well and had a stroke in the past. She was given and had score of 4. She was deemed not a tPA candidate or TNKase. CT head unremarkable CT head and neck did not show neurological circumflex lesion son reports hemangioma which has not changed. Neurology has recommended completing stroke workup with echo B12 level TSH and MRI head Review of Systems 2 Const: Denies: fever(s) Eyes: Denies: change in vision ENMT: Denies: throat pain Card: Denies: chest pain Resp: Denies: dyspnea Medications/Allergies Home Medications Medication Instructions Recorded Confirmed Last Taken Type montelukast 10 mg tablet 10 mg PO DAILY 09/04/20 07/26/23 04/26/23 History ipratropium 0.5 mg-albuterol 3 mg 3 ml inhalation TID 11/27/20 07/26/23 04/27/23 History (2.5 mg base)/3 mL nebulization soln multivitamin (One-A-Day Essential 1 tab PO DAILY 08/11/21 07/26/23 04/26/23 History tablet) acetaminophen 500 mg capsule 500 mg PO Q6H PRN Migraine Headache 09/24/21 07/26/23 04/25/23 History levocetirizine 5 mg tablet 5 mg PO DAILY 09/24/21 07/26/23 04/27/23 History meloxicam 15 mg tablet 15 mg PO DAILY 09/24/21 07/26/23 04/27/23 History baclofen 10 mg tablet 10 mg PO DAILY 11/11/22 07/26/23 04/27/23 History nitroglycerin 0.4 mg sublingual 0.4 mg sublingual Q5M PRN chest 11/11/22 07/26/23 Unknown Rx tablet pain 30 days #30 tabs losartan 50 mg tablet 50 mg PO DAILY #90 tabs 12/31/22 07/26/23 04/26/23 Rx Xopenex HFA 45 mcg/actuation 2 inh inhalation Q6H #15 grams 01/04/23 07/26/23 04/26/23 Rx aerosol inhaler (levalbuterol tartrate) amlodipine 5 mg tablet 5 mg PO DAILY #90 tabs 02/08/23 07/26/23 04/27/23 Rx glycopyrrolate 9 mcg-formoterol 2 puff inhalation BID #10.7 grams 03/30/23 07/26/23 04/27/23 Rx 4.8 mcg HFA aerosol inhaler (Bevespi Aerosphere) omeprazole 20 mg capsule,delayed 20 mg PO BID #120 caps 04/28/23 07/26/23 Unknown Rx release sucralfate 100 mg/mL oral 10 ml PO BID #400 mL 04/28/23 07/26/23 Unknown Rx suspension (Carafate) isosorbide mononitrate 30 mg 30 mg PO DAILY #90 tabs 06/13/23 07/26/23 Unknown Rx tablet,extended release 24 hr prednisone 10 mg tablet 10 mg PO DAILY #11 tabs 06/16/23 07/26/23 Unknown Rx buspirone 10 mg tablet 20 mg (2 x 10 mg) PO BID #120 tabs 06/28/23 07/26/23 Unknown Rx duloxetine 20 mg capsule,delayed 20 mg PO .daily at 1 PM #30 caps 06/28/23 07/26/23 Unknown Rx release duloxetine 60 mg capsule,delayed 60 mg PO .q am #30 caps 06/28/23 07/26/23 Unknown Rx release hydroxyzine pamoate 25 mg capsule 25 mg PO BID PRN anxiety #60 caps 06/28/23 07/26/23 Unknown Rx metoprolol tartrate 50 mg tablet 50 mg PO BID #60 tabs 06/28/23 07/26/23 Unknown Rx prazosin 5 mg capsule 5 mg PO .q hs #30 caps 06/28/23 07/26/23 Unknown Rx fluticasone propionate 110 2 puff inhalation BID #12 grams 07/18/23 07/26/23 Unknown Rx mcg/actuation HFA aerosol inhaler gabapentin 100 mg capsule See Rx Instructions .Route 07/26/23 07/26/23 Unknown Rx .COMPLEX #60 caps Allergies Allergy/AdvReac Type Severity Reaction Status Date / Time Sulfa (Sulfonamide Allergy Severe ALGY-Rash Verified 08/15/23 14:17 Antibiotics) hydrocodone Allergy Intermediate ALGY-Rash Verified 08/15/23 14:17 blackberry Allergy Unconscious Verified 08/15/23 14:17 Penicillins Allergy ALGY-Rash Verified 08/15/23 14:17 PFSH Acute 2 PFSH: Medical History Major depressive disorder, recurrent episode with anxious distress 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 Dr. Alcaraz. History of carpal tunnel surgery of left wrist 2020 - [place], [place] Dr. Holder. History of myringotomy History of tonsillectomy and adenoidectomy Family History Mother Diabetes Stroke Hypertension Breast cancer mother-- dx'd at 58 y/o Family/Other Breast cancer Maternal aunt Social History Smoking and tobacco/nicotine status: never used tobacco/nicotine Second hand smoke exposure: Yes Substance/Drug Use: never Vitals/I&O/Wt Last Vital Signs Temp 97.9 F 08/20/23 21:03 Pulse 70 08/20/23 23:15 Resp 18 08/20/23 23:15 BP 126/81 08/20/23 23:15 Pulse Ox 99 08/20/23 23:15 O2 Del Method Room Air 08/20/23 23:15 Weight last 48 hrs Weight 68.039 kg Physical Exam 2 Narrative: NIH 0 Able to move her extremities Euvolemic GCS of 3 Nonfocal neuroexam S1, S2 Blood pressure stable Sister is at the bedside Data 08/20/23 20:33 08/20/23 20:33 A&P Assessment and plan (1) TIA (transient ischemic attack): Plan TIA Continue aspirin and atorvastatin For signs of dehydration continue IV fluids overnight Frequent neurochecks Admit to MedSurg Request PT OT ST Limited echo B12 and TSH level Patient has 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
[2023-08-20 23:30] VITALS: BP 105/80; PULSE 74; RESP 16; O2SAT 98
[2023-08-21] VITALS (11 sets, daily range): BP systolic 105–142; BP diastolic 80–94; PULSE 62–79; RESP 16–19; TEMP 36.3–37.1; O2SAT 94–98; BMI 40.5
--- NOTE | 2023-08-21 00:19 | USCV_ITS ---
Stefano Cabezas Age: 43 Gender: F : 1980 Exam Date: 08/21/2023 12:09 Ordering Phys: Ayan Cabral MD Technologist: Sy Reynolds [place] [facility] [place]: CVA BP: 134 / 85 HR: 72 Rhythm: Sinus Technical Quality: Adequate MEASUREMENTS (Male / Female) Normal Values 2D ECHO LV Diastolic Diameter PLAX 3.5 cm 4.2 - 5.9 / 3.9 - 5.3 cm IVS Diastolic Thickness 1.2 cm 0.6 - 1.0 / 0.6 - 0.9 cm IVS Systolic Thickness 1.4 cm LVPW Diastolic Thickness 1.4 cm 0.6 - 1.0 / 0.6 - 0.9 cm LVPW Systolic Thickness 1.8 cm LVOT Diameter 2.0 cm LV Ejection Fraction 2D Teich 75.8 % LV Ejection Fraction MOD 4C 60.7 % LA Diameter 3.2 cm RA Systolic Volume 4C AL 40.4 ml RA Systolic Volume 4C MOD 40.6 ml LA Sys Volume AL 28.8 cm cubed LA Sys Volume Index AL 16.5 cm cubed/m squared Aorta at Sinotubular Diameter 1.9 cm IVC Diameter 1.7 cm M-MODE LA Ao Ratio MM 1.2 AV Cusp Separation MM 1.3 cm DOPPLER AV Peak Velocity 169.0 cm/s LVOT Peak Velocity 116.0 cm/s AV Area Cont Eq vti 2.4 cm squared AV Area Cont Eq pk 2.1 cm squared MV Peak Velocity 135.0 cm/s MV Area PHT 5.0 cm squared Mitral E to A Ratio 0.9 TV Peak Velocity 373.0 cm/s TR Peak Velocity 397.0 cm/s TR Peak Gradient 63.0 mmHg TR Mean Velocity 282.0 cm/s TR Mean Gradient 37.0 mmHg TR Velocity Time Integral 91.4 cm PV Peak Velocity 102.0 cm/s RV Ejection Time 0.3 s FINDINGS Left Ventricle Normal left ventricular size, systolic function and wall thickness, with no regional wall motion abnormalities. Left ventricular ejection fraction is estimated at 65%. Right Ventricle Normal right ventricular size and systolic function. Right Atrium Normal right atrial size. Left Atrium Normal left atrial size. Mitral Valve Structurally normal mitral valve. Trace mitral valve regurgitation. Aortic Valve Structurally normal trileaflet aortic valve. No aortic valve stenosis. Tricuspid Valve Structurally normal tricuspid valve. Pulmonary artery artery systolic pressure could not be properly assessed. Pulmonic Valve Pulmonic valve not well visualized. Pericardium No pericardial effusion. Aorta Normal size aortic root and proximal ascending aorta. IVC Normal inferior vena cava. CONCLUSIONS Normal left ventricle functions. There is a mild concentric LVH. LVEF normal 65%. Normal chamber sizes. No significant valvular abnormality noted. Lor Leigh MD (Electronically Signed) Final Date: 21 August 2023 17:18 S
--- NOTE | 2023-08-21 00:20 | MRR_ITS ---
PROCEDURE INFORMATION: Exam: MR Head Without Contrast Exam date and time: 08/21/2023 9:39 AM Age: 43 years old Clinical indication: Pain; Numbness / parasthesia; Left; Headache not specified; Additional info: CVA, TIA TECHNIQUE: Imaging protocol: Magnetic resonance imaging of the head without contrast. COMPARISON: CT angio headneck* [id number] 08/20/2023 9:35 PM FINDINGS: Brain: There is no mass effect, midline shift, hemorrhage, extra-axial fluid collection or acute infarct. Along the undersurface of the right frontal lobe there is a 10 x 6 x 9 mm extra-axial mass likely representing a meningioma, poorly depicted on this noncontrast examination. Suggest contrast-enhanced MRI of the brain to further assess. There is no abnormal signal in the adjacent underlying brain. Scant hemispheric white matter signal hyperintensities are noted, nonspecific, requiring clinical correlation. Cerebral ventricles: Normal. No ventriculomegaly. Bones: Unremarkable. Paranasal sinuses: Normal as visualized. No acute sinusitis. Mastoid air cells: Normal as visualized. No mastoid effusion. Orbital cavities: The patient is post bilateral cataract surgery.. Soft tissues: Unremarkable. MR/MR head wo con* [id number] IMPRESSION: No acute intracranial process. Small right planum meningioma again noted, not as well depicted on this noncontrast MRI. MRI of the brain with intravenous contrast may be performed to more closely image.
[2023-08-21] MEDS: acetaminophen 500 mg Tablet PO (00:46)
[2023-08-21 01:51] LABS: Estmated Average Glucose 100; Hemoglobin A1C 5.1 % (4.0-6.0)
[2023-08-21 03:28] LABS: Vitamin B12 199 pg/mL (232-1245)
[2023-08-21 04:40] LABS: Anion Gap 16.8 (5-19); Blood Urea Nitrogen 9 mg/dL (6-20); Calcium 8.3 mg/dL (8.5-10.5); Carbon Dioxide 17 mmol/L (22-29); Chloride 112 mmol/L (98-107); Creatinine Clr Calc Pharmacy 118.8235; Glomerular Filtration Rate 90.9 mL/min (90-130); Glucose 94 mg/dL (65-115); Osmolality Calculated 292 mOsm/kg (285-295); Phosphorus 3.3 mg/dL (2.5-4.5); Potassium 3.8 mmol/L (3.5-5.1); Sodium 142 mmol/L (136-145)
[2023-08-21] MEDS: enoxaparin 40 mg/0.4 mL Syringe SUBCUT (05:55)
[2023-08-21] MEDS: sucralfate 1 gm/10 mL Oral Liq UDC PO ×2 (09:00→17:18)
[2023-08-21] MEDS: metoprolol tartrate 50 mg Tablet PO ×2 (09:01→17:18)
[2023-08-21] MEDS: aspirin 81 mg EC Tablet PO (09:01)
[2023-08-21] MEDS: sennosides-docusate Tablet 1 TAB PO (09:01)
--- NOTE | 2023-08-21 09:33 | PC.OT ---
Attempted OT evaluation today. Patient has gone for MRI. OT eval on hold.
[2023-08-21 15:03] LABS: Iron 31 ug/dL (37-145); Percent Saturation 14.2 % (20-50); Thyroid Stimulating Hormone 3.54 uIU/mL (0.27-4.20); Total Iron Binding Capacity 217 mcg/dl; Unsaturated Iron Binding 186 ug/dL (112-347)
--- NOTE | 2023-08-21 15:12 | W.PM.EVENTAC ---
Event Note Event Note: Admitted overnight. Today morning patient seen sitting comfortably in bed. Awake and alert. Able to have complete conversation. She tolerated oral diet well. States she usually walks around by herself or with her cane. Denies any weakness of her arms or legs. Appreciate MRI done earlier today morning without any acute abnormality. Plan: Follow-up PT and OT evaluation prior to discharge. Advance or change diet as per speech evaluation Start on vitamin B12 IM daily shots. Patient will need to be discharged on vitamin B12 oral supplementation. Restart other home medications including BuSpar, baclofen, duloxetine at home dose. Blood pressure is normal off antihypertensive. Continue with home dose of metoprolol. For now hold off on home dose of prazosin, losartan, amlodipine. Goal blood pressure less than 140/90 mmHg. Uptitrate or restart home medications accordingly. Will await PT and OT evaluation prior to discharge.
[2023-08-21] MEDS: ipratropium-albuterol 3 mL Neb INHALATION ×2 (15:57→19:59)
[2023-08-21] MEDS: gabapentin 100 mg Capsule PO (17:18)
[2023-08-21] MEDS: BuSPIRONE 10 mg Tablet 20 MG PO (17:18)
[2023-08-21] MEDS: cyanocobalamin 1,000 mcg/mL SDV 1000 MCG IM (17:18)
[2023-08-21] MEDS: atorvastatin 40 mg Tablet PO (21:44)
[2023-08-22] VITALS (7 sets, daily range): BP systolic 131–154; BP diastolic 73–91; PULSE 73–85; RESP 17–18; TEMP 36.8–37; O2SAT 95–98
[2023-08-22 05:13] LABS: Basophils # 0.1 10^3/uL (0.0-0.1); Basophils % 0.9 %; Eosinophils # 0.3 10^3/uL (0.0-0.8); Eosinophils % 2.9 %; Hematocrit 38.1 % (36-47); Mean Corpuscular HGB Conc 32.3 g/dL (30-55); Mean Corpuscular Hemoglobin 31.9 pg (27-33); Monocytes # 0.8 10^3/uL (0.2-0.9); Monocytes % 7.5 %; Neutrophils # 7.11 10^3/uL (1.8-7.7); Neutrophils % 68.4 %; Nucleated Red Blood Cells % 0 %; Platelet Count 349 10^3/cmm (157-399); Red Blood Count 3.85 10^6/uL (3.85-5.65); Red Cell Distribution Width 15.7 % (12.1-15.1); White Blood Count 10.38 10^3/uL (3.29-11.43)
[2023-08-22] MEDS: enoxaparin 40 mg/0.4 mL Syringe SUBCUT (05:29)
[2023-08-22] MEDS: duloxetine 60 mg Capsule PO (05:29)
[2023-08-22 05:34] LABS: Alanine Aminotransferase 23 U/L (0-33); Albumin Level 3.9 g/dL (3.5-5.2); Alkaline Phosphatase 145 U/L (35-105); Anion Gap 17.7 (5-19); Aspartate Amino Transferase 20 U/L (0-32); Blood Urea Nitrogen 9 mg/dL (6-20); Calcium 8.8 mg/dL (8.5-10.5); Carbon Dioxide 19 mmol/L (22-29); Chloride 105 mmol/L (98-107); Chol HDL Ratio 4.89 mg/dL (0.0-4.40); Cholesterol 176 mg/dL (0-200); Creatinine Clr Calc Pharmacy 124.3412; Globulin 3.3 g/dL (1.3-4.6); Glomerular Filtration Rate 90.9 mL/min (90-130); Glucose 91 mg/dL (65-115); HDL Cholesterol 36 mg/dL (60-100); LDL Cholesterol Calculated 90 mg/dL (50-129); Osmolality Calculated 284 mOsm/kg (285-295); Potassium 3.7 mmol/L (3.5-5.1); Sodium 138 mmol/L (136-145); Total Bilirubin 0.5 mg/dL (0.15-1.2); Total Protein 7.2 g/dL (6.6-8.7); Triglycerides 249 mg/dL (0-150); VLDL Cholestrol Calculation 50 mg/dL (0-30)
[2023-08-22 05:53] LABS: Folate Level 5.1 ng/mL (4.8-37.3)
[2023-08-22] MEDS: ipratropium-albuterol 3 mL Neb INHALATION (07:59)
[2023-08-22] MEDS: aspirin 81 mg EC Tablet PO (08:51)
[2023-08-22] MEDS: gabapentin 100 mg Capsule PO (08:51)
[2023-08-22] MEDS: sucralfate 1 gm/10 mL Oral Liq UDC PO (08:51)
[2023-08-22] MEDS: metoprolol tartrate 50 mg Tablet PO (08:51)
[2023-08-22] MEDS: sennosides-docusate Tablet 1 TAB PO (08:51)
[2023-08-22] MEDS: BuSPIRONE 10 mg Tablet 20 MG PO (08:51)
[2023-08-22] MEDS: baclofen 10 mg Tablet PO (08:51)
--- NOTE | 2023-08-22 13:00 | PM.PN ---
Subjective Subjective: History of Present Illness Stefano Cabezas is a 43 year old female with a history of cerebral palsy with left-sided spastic hemiplegia, right cerebral TIA September 2022, hypertension, major depressive disorder, anxiety, meningioma involving the right sphenoid wing in the cavernous sinus, and asthma. The patient reports that she was at home and began experiencing slurred speech with left facial weakness and increased left arm and left leg weakness. Patient stated that she contacted her family who live next-door and she was instructed to contact EMS. Patient's last known well was 6:30 PM on 08/20/2023. The patient underwent stat noncontrast head CT which was reported to reveal no acute findings. There was report of the small meningioma in the right sphenoid wing. NIH score = 4 (secondary to mild dysarthria at 1+, mild drift in the left upper extremity and 1+, mild drift in the left lower extremity and 1+ and mild left lower facial weakness at 1+). Serum glucose pending at the time of this dictation Blood pressure revealed patient to be hypotensive 93/66 with heart rate of 68. Patient prescribed IV fluids by the ER physician with patient reporting improvement in the patient's left arm and left leg weakness. Note: Since the patient reported improvement in her left arm and left leg weakness with IV fluids, patient was not a candidate for intravenous thrombolytics and no intravenous thrombolytics were administered. CBC revealed a normal white count at 10.68, RBC was decreased at 3.25 (normal equals 3.5-5.6), H&H were decreased at 10.6 and 30.9 respectively. Platelet count was within normal limits at 342. Serum glucose 98 CT angiogram head and neck was negative for any large vessel occlusion. There was report of the meningioma in the right planum sphenoidale measuring 7 mm which appeared to be unchanged from head MRI performed in 2022. Head MRI performed on 08/21/2023 was negative for stroke. Patient's symptoms improved with IV fluid bolus. She was without complaints on 08/22/2023. Patient was informed she is stable from neurological standpoint for discharge planning. Patient informed me that she will follow-up with Dr. Rosado who is her outpatient treating neurologist Drug allergies: Sulfonamide antibiotics which resulted in a rash Hydrocodone which resulted in a rash Penicillins which resulted in a rash Blackberries which resulted in loss of consciousness Current medications: Sublingual nitroglycerin 0.4 mg as needed Prednisone 10 mg p.o. daily Terazosin 5 mg p.o. daily Cymbalta 60 mg p.o. daily BuSpar 20 mg p.o. twice daily Norvasc 5 mg p.o. daily Losartan 50 mg p.o. daily Metoprolol 50 mg p.o. twice daily Singulair 10 mg p.o. daily Xoponex 45 mg Neurontin 100 mg p.o. to use as directed Isosorbide mononitrate ER 30 mg p.o. daily Levocetirizone 5 mg p.o. daily Mobic 15 mg p.o. daily Multivitamin 1 p.o. daily Omeprazole 20 mg p.o. twice daily Albuterol Vistaril 25 mg p.o. twice daily, as needed anxiety Baclofen 10 mg p.o. daily Past medical history: Small right sphenoid wing meningioma Cerebral palsy with left-sided spastic hemiplegia Right cerebral TIA August or September 2022 (head MRI August 2022 negative for stroke) Chronic small lacunar cerebellar infarction Hypertension Fibromyalgia Asthma Chest wall pain Major depressive disorder with recurrent episodes of anxiety Anxiety Cervical disc disease Reactive airway disease Dermoid tumor of the abdominal wall Exertional dyspnea Obstructive sleep apnea on CPAP Thoracic outlet syndrome Benign hypertrophic breast Dystonia Attention deficit hyperactivity disorder Carpal tunnel syndrome Dwarfism Habits: None Family history: Unknown Review of Systems General: Reports: 10 or mor e systems reviewed and unremarkable except in HPI and below Vitals/I&O/Wt Last Vital Signs Temp 98.2 F 08/22/23 08:00 Pulse 85 08/22/23 08:00 Resp 18 08/22/23 08:00 BP 145/88 08/22/23 08:00 Pulse Ox 98 08/22/23 08:00 O2 Del Method Room Air 08/22/23 08:00 08/21/23 08/22/23 08/22/23 22:59 06:59 14:59 Intake Total 720 / 1440 240 / 1680 360 / 360 Balance 720 / 1440 240 / 1680 360 / 360 Weight last 48 hrs Weight 156 lb 11.2 oz Weight 169 lb 5 oz Weight 161 lb 12.8 oz Weight 150 lb Physical Exam Narrative: The patient is alert and oriented to person place and situation. Head atraumatic. Neck Short. Cranial nerves II through XII revealed mild left lower facial weakness. Speech mildly dysarthric. Patient able to follow commands and answer questions appropriately. Motor testing revealed a drift in the left upper and left lower extremity and 1+ each. Deep tendon reflexes revealed plantar responses bilaterally. There was no clonus. Sensory examination was intact to touch. There was no extinction on double sensory stimulation. Throat clear. Lungs clear. Heart regular rhythm and rate. Extremities were negative for cyanosis. Data 08/22/23 05:03 08/22/23 05:03 A&P Assessment and plan (1) TIA (transient ischemic attack): Impression: 1. Transient ischemic attack versus right subcortical versus cortical infarct manifested as slurred speech with left facial weakness and increased left arm and left leg weakness associated with hypotension blood pressure 93/66. NIH score = 4 (secondary to mild dysarthria at 1+, mild drift in the left upper extremity and 1+, mild drift in the left lower extremity and 1+ and mild left lower facial weakness at 1+). The patient's last known well (LKW) was 6:30 PM on 08/20/2023 and code stroke was initiated at 8:49 PM reporting patient's ETA was 3 minutes out from [facility] emergency room. Since the patient reported improvement in her left-sided weakness with IV saline bolus, patient was not a candidate for intravenous thrombolytics and no intravenous thrombolytics were administered. 2. Cerebral palsy with left-sided spastic hemiplegia 3. Right cerebral TIA August or September 2022 (head MRI August 2022 negative for stroke) 4. Chronic small lacunar cerebellar infarction 5. Hypertension with episodes of hypotension and tachycardia per patient's history 6. Major depression patient denies being homicidal suicidal 7. Anxiety 8. Small right sphenoid wing meningioma 9. Obstructive sleep apnea on CPAP 10. Asthma Plan: 1. Patient stable from neurological standpoint for discharge planning. Please have patient follow-up with Dr. Rosado in the [facility] neurology clinic. Dr. Rosado is patient's neurology treating physician 2. Continue aspirin 81 mg p.o. every morning with food 3. Continue Lipitor 20 mg p.o. nightly per NIH stroke protocol 4. Patient instructed to follow-up with family physician to determine if antihypertensive medication require adjusting since she was admitted with hypotension 5. Please give patient and patient's family a stroke pamphlet 6. Recommend cardiac evaluation for reports of episodic palpitations which can be performed on outpatient basis if the patient remains stable 7. Recommend speech path, Occupational Therapy and physical therapy consults if not already done prior to discharge (2) Cerebral palsy: Qualifiers: Cerebral palsy type: spastic quadriplegic Qualified Code(s): G80.0 - Spastic quadriplegic cerebral palsy (3) Left spastic hemiparesis: Attestations Medical Necessity Statement*: Patient seen by neurology for code stroke manifested as worsening left-sided weakness and patient with history of cerebral palsy with left-sided spastic hemiplegia Coding Level of Care Code [id number] Diagnoses TIA (transient ischemic attack) G45.9 Spastic quadriplegic cerebral palsy G80.0 Cerebral palsy type: spastic quadriplegic Left spastic hemiparesis G81.14
--- NOTE | 2023-08-22 13:13 | P.DS_ITS ---
Discharge Providers Date of Admission: 08/21/23 00:12 Date of Discharge: August 22, 2023 Attending Provider at Admission: Ayan Cabral MD Attending Provider at Discharge: tSepan Betancur Primary Care Provider: Jorge Luis Nuñez DO Diagnoses at Discharge Discharge Diagnosis (1) TIA (transient ischemic attack): Status: Acute (2) Cerebral palsy: Status: Chronic Qualifiers: Cerebral palsy type: spastic quadriplegic Qualified Code(s): G80.0 - Spastic quadriplegic cerebral palsy (3) Left spastic hemiparesis: Status: Acute Reason for Visit Reason for Visit: STROKE Hospital Course Hospital Course Pleasant 43-year-old lady with history of cerebral palsy, was admitted for assessment management after strokelike symptoms with slurred speech, facial weakness increased left arm left leg weakness, presentation with hypotension 93/66, on multiple antihypertensives at home. Stroke code was called, was assessed for possible CVA. With improving symptoms was not found to be candidate for thrombolytics. Received IV saline bolus. Blood pressure showed improvement as did the symptoms. She is started on aspirin, statin, blood pressure has been looking good on only metoprolol. As such amlodipine, Imdur, losartan for now are discontinued. She is asked to stop meloxicam due to increased risk of stroke, avoid NSAIDs. Reassess blood pressure. With some intermittent palpitations, without atrial fibrillation hospital, in case of recurrence consider options for cardiac monitoring. Today she is doing well, she is ambulating, she reports that she is back to baseline. As per discussion we will continue aspirin, statin, monitor blood pressures. Continue home exercise program as unable to get outpatient PT with her insurance. Received IM vitamin B12 supplementation, continues on oral supplement at discharge. Vitamin B12 level was 199. Physical Exam Narrative: Reports she is doing well. Back to her usual self. Ambulated in the room. Would like to discharge home. Const: COMMON NORMALS: patient oriented x3 and alert GENERAL APPEARANCE: cooperative ORIENTATION/CONSCIOUSNESS: Yes awake HENMT: COMMON NORMALS: oropharynx normal Neck/C-Spine: COMMON NORMALS: no JVD Resp: COMMON NORMALS: normal respiratory effort and clear to auscultation bilaterally AUSCULTATION: clear to auscultation bilaterally Cardio: COMMON NORMALS: no JVD, regular rhythm, S1 normal heart sound present, S2 normal heart sound present and No murmurs present (Cardio) RHYTHM: regular rhythm HEART SOUNDS: S1 normal heart sound present and S2 normal heart sound present GI: COMMON NORMALS: Normal to inspection, nondistended, normoactive bowel sounds present, Soft to palpation and non-tender PALPATION: Yes Soft to palpation Extremity: COMMON NORMALS: no joint enlargement and no pedal edema OTHER: Spasticity over the left wrist, forearm and hand. Neuro: COMMON NORMALS: patient oriented x3 and moves all extremities SENSORIUM/ORIENTATION: Yes alert OTHER: She is awake and alert, readily following directions. No trouble with speech today. Did not notice facial droop. No difficulty with horizontal tracking. Visual tinoco full to confrontation. No visual extinction. Difficulty with FNF only due to spasticity in the left arm. Otherwise no dysmetria. No upper or lower extremity drift. Sensation symmetrical, no sensory extinction. Skin: COMMON NORMALS: no rashes or lesions noted GENERAL SKIN EXAM: no rashes or lesions noted Discharge Data Studies Completed and Pending Completed Studies During Hospitalization Category Date Time Status CT angio headneck* [id number] Stat Cat Scan 08/20/23 21:[address] head thrombolytic [id number] Stat Cat Scan 08/20/23 21:01 Completed XR chest 1V portable [id number] Stat Exams 08/20/23 21:18 Completed MR head wo con* [id number] Routine MRI 08/21/23 00:20 Completed CV. echo complete* [id number] Routine Ultrasound 08/21/23 00:19 Completed Pending at discharge Category Date Time Status Magnesium AM LABS Lab 08/22/23 04:00 Ordered Radiology Impressions Head CT 08/20/23 21:01 IMPRESSION: No acute intracranial abnormality. ASSESSMENT: ASPECTS ([place] Stroke Program Early CT Score) is 10. Chest X-Ray 08/20/23 21:18 IMPRESSION: No acute findings. Head/Neck CTA 08/20/23 21:18 IMPRESSION: 1. No acute large vessel occlusion identified. 2. Mass in the right planum sphenoidale measuring 7 mm similar to comparison MRI. A repeat study can be performed for further assessment as indicated. IMPRESSION: No occlusion or significant stenosis. REFERENCES: NASCET CRITERIA. The degree of stenosis in the cervical segment of the internal carotid artery is based on NASCET criteria. Normal is no stenosis. Mild is less than 50% stenosis. Moderate is 50-69% stenosis. Severe is 70% to 99% stenosis. Total occlusion is no detectable patent lumen. Head MRI 08/21/23 00:20 IMPRESSION: No acute intracranial process. Small right planum meningioma again noted, not as well depicted on this noncontrast MRI. MRI of the brain with intravenous contrast may be performed to more closely image. Laboratory Results WBC 10.38 10^3/uL (3.29-11.43) 08/22/23 05:03 RBC 3.85 10^6/uL (3.85-5.65) 08/22/23 05:03 Hgb 12.30 g/dL (11.27-16.99) 08/22/23 05:03 Hct 38.1 % (36-47) 08/22/23 05:03 MCV 99.0 fl (85-98) H 08/22/23 05:03 MCH 31.9 pg (27-33) 08/22/23 05:03 MCHC 32.3 g/dL (30-55) 08/22/23 05:03 RDW 15.7 % (12.1-15.1) H 08/22/23 05:03 Plt Count 349 10^3/cmm (157-399) 08/22/23 05:03 MPV 10.0 fL (7.4-10.4) 08/22/23 05:03 Neut % (Auto) 68.4 % 08/22/23 05:03 Lymph % (Auto) 19.0 % 08/22/23 05:03 [place] % (Auto) 7.5 % 08/22/23 05:03 Eos % (Auto) 2.9 % 08/22/23 05:03 Baso % (Auto) 0.9 % 08/22/23 05:03 Neut # (Auto) 7.11 10^3/uL (1.8-7.7) 08/22/23 05:03 Lymph # (Auto) 2.0 10^3/uL (0.8-4.8) 08/22/23 05:03 [place] # (Auto) 0.8 10^3/uL (0.2-0.9) 08/22/23 05:03 Eos # (Auto) 0.3 10^3/uL (0.0-0.8) 08/22/23 05:03 Baso # (Auto) 0.1 10^3/uL (0.0-0.1) 08/22/23 05:03 Nucleated RBC % (auto) 0 % 08/22/23 05:03 Nucleated RBCs # 0.0 /100WBC 08/22/23 05:03 PT 13.40 SECONDS (12.1-14.9) 08/20/23 20:33 INR 0.99 (0.8-1.2) 08/20/23 20:33 APTT 25.9 SECONDS (23.9-36.7) 08/20/23 20:33 Sodium 138 mmol/L (136-145) 08/22/23 05:03 Potassium 3.7 mmol/L (3.5-5.1) 08/22/23 05:03 Chloride 105 mmol/L (98-107) 08/22/23 05:03 Carbon Dioxide 19 mmol/L (22-29) L 08/22/23 05:03 Anion Gap 17.7 (5-19) 08/22/23 05:03 BUN 9 mg/dL (6-20) 08/22/23 05:03 Creatinine 0.7 mg/dL (0.5-0.9) 08/22/23 05:03 GFR Calculation 90.9 mL/min (90-130) 08/22/23 05:03 Glucose 91 mg/dL (65-115) 08/22/23 05:03 Estimat Average Glucose 100 08/21/23 00:00 Hemoglobin A1c 5.1 % (4.0-6.0) 08/21/23 00:00 Calculated Osmolality 284 mOsm/kg (285-295) L 08/22/23 05:03 Calcium 8.8 mg/dL (8.5-10.5) 08/22/23 05:03 Phosphorus 3.3 mg/dL (2.5-4.5) 08/21/23 02:54 Iron 31 ug/dL (37-145) L 08/21/23 02:54 TIBC 217 mcg/dl 08/21/23 02:54 % Saturation 14.2 % (20-50) L 08/21/23 02:54 Unsat Iron Binding 186 ug/dL (112-347) 08/21/23 02:54 Total Bilirubin 0.5 mg/dL (0.15-1.2) 08/22/23 05:03 AST 20 U/L (0-32) 08/22/23 05:03 ALT 23 U/L (0-33) 08/22/23 05:03 Alkaline Phosphatase 145 U/L (35-105) H 08/22/23 05:03 C-Reactive Protein 3.0 mg/L (0.0-4.9) 08/21/23 02:54 Total Protein 7.2 g/dL (6.6-8.7) 08/22/23 05:03 Albumin 3.9 g/dL (3.5-5.2) 08/22/23 05:03 Globulin 3.3 g/dL (1.3-4.6) 08/22/23 05:03 Triglycerides 249 mg/dL (0-150) H 08/22/23 05:03 Cholesterol 176 mg/dL (0-200) 08/22/23 05:03 LDL Cholesterol, Calc 90 mg/dL (50-129) 08/22/23 05:03 Total VLDL Cholesterol 50 mg/dL (0-30) H 08/22/23 05:03 HDL Cholesterol 36 mg/dL (60-100) L 08/22/23 05:03 Cholesterol/HDL Ratio 4.89 mg/dL (0.0-4.40) H 08/22/23 05:03 Vitamin B12 199 pg/mL (232-1245) L 08/21/23 00:00 Folate 5.1 ng/mL (4.8-37.3) 08/22/23 05:03 TSH 3.54 uIU/mL (0.27-4.20) 08/21/23 02:54 Urine Color Yellow (Yellow) 08/20/23 22:33 Urine Appearance Clear (CLEAR) 08/20/23 22:33 Urine pH 5 (5-7) 08/20/23 22:33 Ur Specific Force 1.005 (1.005-1.030) 08/20/23 22:33 Urine Protein Neg (Negative) 08/20/23 22:33 Urine Glucose (UA) Norm (Normal) 08/20/23 22:33 Urine Ketones Negative (Negative) 08/20/23 22:33 Urine Blood Neg (Negative) 08/20/23 22:33 Urine Nitrate Negative (Negative) 08/20/23 22:33 Urine Bilirubin Neg (Negative) 08/20/23 22:33 Urine Urobilinogen Neg mg/dL (Negative) 08/20/23 22:33 Ur Leukocyte Esterase 1+ (Negative) H 08/20/23 22:33 Urine RBC 0-4 /hpf (0-2) H 08/20/23 22:33 Urine WBC 5-10 /hpf (0-5) H 08/20/23 22:33 Ur Squamous Epith Cells 0-4 /hpf (0-5) H 08/20/23 22:33 Amorphous Sediment Not Reportable 08/20/23 22:33 Urine Bacteria Trace /hpf (NONE) 08/20/23 22:33 Urine Opiates Screen Negative ng/mL (Negative) 08/20/23 22:33 Ur Barbiturates Screen Negative ng/mL (Negative) 08/20/23 22:33 Ur Phencyclidine Scrn Negative ng/mL (Negative) 08/20/23 22:33 Ur Amphetamines Screen Negative ng/mL (Negative) 08/20/23 22:33 U Benzodiazepines Scrn Negative ng/mL (Negative) 08/20/23 22:33 Urine Cocaine Screen Negative ng/mL (Negative) 08/20/23 22:33 U Marijuana (THC) Screen Negative ng/mL (Negative) 08/20/23 22:33 Vitals Last Vital Signs Temp 98.2 F 08/22/23 08:00 Pulse 85 08/22/23 08:00 Resp 18 08/22/23 08:00 BP 145/88 08/22/23 08:00 Pulse Ox 98 08/22/23 08:00 O2 Del Method Room Air 08/22/23 08:00 Discharge Plan Discharge Patient Disposition: Home Condition: Stable Prescriptions: New cyanocobalamin (vitamin B-12) 500 mcg tablet 500 mcg PO DAILY Qty: 90 0RF aspirin 81 mg Tablet,Delayed Release (Dr/Ec) 81 mg PO DAILY Qty: 90 0RF atorvastatin 40 mg Tablet 40 mg PO BEDTIME Qty: 90 0RF Continued montelukast 10 mg tablet 10 mg PO DAILY ipratropium-albuterol 0.5 mg-3 mg(2.5 mg base)/3 mL solution for nebulization 3 ml inhalation TID acetaminophen 500 mg capsule 500 mg PO Q6H PRN (Reason: Migraine Headache) levocetirizine 5 mg tablet 5 mg PO DAILY baclofen 10 mg tablet 10 mg PO DAILY nitroglycerin 0.4 mg tablet, sublingual 0.4 mg sublingual Q5M PRN (Reason: chest pain) 30 Days Qty: 30 3RF Patient Comments: I have never had to take them Rx Instructions: until response; do not exceed 3 doses per episode metoprolol tartrate 50 mg tablet 50 mg PO BID Qty: 60 5RF buspirone 10 mg tablet 20 mg PO BID Qty: 120 2RF Rx Instructions: Take two tablets every morning and evening duloxetine 60 mg capsule,delayed release(DR/EC) 60 mg PO .q am Qty: 30 2RF Rx Instructions: Take one capsule every morning duloxetine 20 mg capsule,delayed release(DR/EC) 20 mg PO .daily at 1 PM Qty: 30 2RF Rx Instructions: Take one capsule daily at 1 PM hydroxyzine pamoate 25 mg capsule 25 mg PO BID PRN (Reason: anxiety) Qty: 60 2RF Rx Instructions: Take one capsule two times a day, if needed for anxiety, 4 to 6 hours apart prazosin 5 mg capsule 5 mg PO .q hs Qty: 30 2RF Rx Instructions: Take one capsule daily at bedtime; stop other doses of this medication multivitamin [One-A-Day Essential] Tablet 1 tab PO DAILY levalbuterol tartrate [Xopenex HFA] 45 mcg/actuation HFA aerosol inhaler 2 inh inhalation Q6H Qty: 15 6RF Bevespi Aerosphere 9-4.8 mcg HFA aerosol inhaler 2 puff inhalation BID Qty: 10.7 6RF fluticasone propionate 110 mcg/actuation HFA aerosol inhaler 2 puff inhalation BID Qty: 12 6RF sucralfate [Carafate] 100 mg/mL suspension 10 ml PO BID Qty: 400 0RF omeprazole 20 mg capsule,delayed release(DR/EC) 20 mg PO BID Qty: 120 0RF gabapentin 100 mg capsule 100 mg PO BID Discontinued meloxicam 15 mg tablet 15 mg PO DAILY amlodipine 5 mg tablet 5 mg PO DAILY Qty: 90 3RF Hold Instructions: Home Medication placed on hold at Doctor's office losartan 50 mg tablet 50 mg PO DAILY Qty: 90 3RF isosorbide mononitrate 30 mg tablet extended release 24 hr 30 mg PO DAILY Qty: 90 3RF Discharge Orders: Discharge Order (Routine); Ordered 08/22/23 Ordered By: Stepan Betancur Referrals: [facility] [Provider Group] - 1 week (TIA) Jorge Luis Nuñez DO [Primary Care Provider] - 4-7 days Discharge Diet: Diabetic Discharge Activity: As per PT/OT instructions Patient Instructions: Aspirin (By mouth), Atorvastatin (By mouth), Ischemic Stroke (GEN) Activity Restrictions/Additional Instructions: Please stop meloxicam as this medication may increase your risk of heart attack, stroke, hypertension, and other the risks. Avoid NSAIDs if possible. Monitor blood pressures at home 3 times daily, continue metoprolol alone for now, if blood pressure rising above 140/90, restart losartan, if over a day or so blood pressure still rising, restart isosorbide. If still increasing despite restarting the above medications and then resume amlodipine. Follow-up with your neurologist as well as primary provider for reassessment after TIA. You are started on aspirin, cholesterol medication as discussed. 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 Continue home exercise program as per PT, OT. 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
[2023-08-22] MEDS: duloxetine 20 mg Capsule PO (13:37)
== END 2023-08-22 14:00 | disposition home or self-care (01) ==
LOC: ER 22:02 → MEDSURG 08-21 04:10
PROVIDERS: Student in an Organized Health Care Education/Training Program; Admitting Provider Internal Medicine; Emergency Provider Emergency Medicine; PCP Internal Medicine; Visit Provider Internal Medicine
DX: G45.9 Transient cerebral ischemic attack, unspecified (principal); G80.0 Spastic quadriplegic cerebral palsy; G81.14 Spastic hemiplegia affecting left nondominant side; R29.704 NIHSS score 4; G47.33 Obstructive sleep apnea (adult) (pediatric); M79.7 Fibromyalgia
CPT/HCPCS: 36415; 70450; 70496; 70498; 70551; 71045; 80048; 80053; 80061; 80306; 81001; 82607; 82746; 83036; 83540; 83550; 83735; 84100; 84443; 85025; 85610; 85730; 86140; 92523; 92610; 93005; 93306; 94640; 96365; 96366; 96372; 96375; 97161; 97165; 99285; G0378; J1650; J3420; J3480; J7040; Q9967

== ENCOUNTER → 2023-08-24 11:16 | Outpatient (BNVA) | payer MEDICAID, SELFPAY | PROVIDERS: PCP Internal Medicine; Visit Provider Specialist | DX: G45.9 Transient cerebral ischemic attack, unspecified (principal); E53.8 Deficiency of other specified B group vitamins; G80.0 Spastic quadriplegic cerebral palsy; D32.9 Benign neoplasm of meninges, unspecified | CPT/HCPCS: 99215 ==

== ENCOUNTER 2023-10-12 07:49 | Outpatient (CLI) | payer MEDICAID, SELFPAY ==
[2023-10-12 08:24] VITALS: PULSE 78; RESP 18; O2SAT 99
[2023-10-12] MEDS: albuterol 2.5 mg/3 mL Neb INHALATION (08:24)
== END 2023-10-12 07:50 | disposition home or self-care (01) ==
PROVIDERS: PCP Internal Medicine; Visit Provider Internal Medicine
DX: J44.9 Chronic obstructive pulmonary disease, unspecified (principal)
CPT/HCPCS: 94060; 94726; 94729; J7613

== ENCOUNTER → 2023-10-20 12:47 | Outpatient (BNVA) | payer MEDICAID, SELFPAY | PROVIDERS: PCP Internal Medicine; Visit Provider Specialist | DX: G81.14 Spastic hemiplegia affecting left nondominant side (principal); E53.8 Deficiency of other specified B group vitamins; D32.9 Benign neoplasm of meninges, unspecified; R51.9 Headache, unspecified | CPT/HCPCS: 64642; J0585 ==

== ENCOUNTER 2023-12-02 07:44 | Outpatient (CLI) | payer MEDICAID, SELFPAY ==
--- NOTE | 2023-12-02 08:00 | US_ITS ---
WS: [id number] ULTRASOUND ABDOMEN LEFT UPPER QUADRANT LIMITED CLINICAL INFORMATION: LUQ PAIN COMPARISON: Ultrasound 11/22/2022 FINDINGS: Technically difficult study LEFT upper quadrant due to bowel gas and body habitus Pancreas Normal where visualized Spleen Splenomegaly: None. Craniocaudal length: 11.5 cm. Abdominal aorta and IVC Visualized portions are normal. US/US abdomen limited [id number] IMPRESSION: Limited examination LEFT upper quadrant due to bowel gas 1. Normal spleen. 2. No hydronephrosis in the LEFT kidney. 3. Pancreas appears normal where visualized.
== END 2023-12-02 07:45 | disposition home or self-care (01) ==
LOC: RAD 07:45
PROVIDERS: PCP Internal Medicine; Visit Provider Internal Medicine
DX: R10.12 Left upper quadrant pain (principal)
CPT/HCPCS: 76705

== ENCOUNTER → 2023-12-21 12:55 | Outpatient (BNVA) | payer MEDICAID, SELFPAY | PROVIDERS: PCP Internal Medicine; Visit Provider Nurse Practitioner Family | DX: L57.8 Other skin changes due to chronic exposure to nonionizing radiation (principal); L81.4 Other melanin hyperpigmentation; L90.5 Scar conditions and fibrosis of skin; D23.39 Other benign neoplasm of skin of other parts of face; B07.8 Other viral warts | CPT/HCPCS: 17000; 17110; 99213 ==

== ENCOUNTER → 2024-01-09 14:01 | Outpatient (BNVA) | payer MEDICAID, SELFPAY | PROVIDERS: PCP Internal Medicine; Visit Provider Nurse Practitioner Family | DX: R06.09 Other forms of dyspnea (principal); I10 Essential (primary) hypertension; R94.31 Abnormal electrocardiogram [ECG] [EKG]; R00.0 Tachycardia, unspecified | CPT/HCPCS: 99213 ==

== ENCOUNTER → 2024-01-18 08:32 | Outpatient (BNVA) | payer MEDICARE, MEDICAID, SELFPAY | PROVIDERS: PCP Internal Medicine; Visit Provider Nurse Practitioner Family | DX: L30.8 Other specified dermatitis (principal); L85.3 Xerosis cutis; Z80.8 Family history of malignant neoplasm of other organs or systems; L57.8 Other skin changes due to chronic exposure to nonionizing radiation; L81.4 Other melanin hyperpigmentation | CPT/HCPCS: 17110; 99214 ==

== ENCOUNTER → 2024-01-27 13:11 | Outpatient (BNVA) | payer MEDICARE, MEDICAID, SELFPAY | PROVIDERS: PCP Internal Medicine; Visit Provider Specialist | DX: G81.14 Spastic hemiplegia affecting left nondominant side (principal); D32.9 Benign neoplasm of meninges, unspecified; F41.9 Anxiety disorder, unspecified | CPT/HCPCS: 64642; J0585 ==

== ENCOUNTER → 2024-02-15 14:40 | Outpatient (BNVA) | payer MEDICARE, MEDICAID, SELFPAY ==
[2024-01-31 14:03] VITALS: BP 136/84; BMI 38.7
== END ==
PROVIDERS: PCP Internal Medicine; Visit Provider Anesthesiology Pain Medicine
DX: M54.9 Dorsalgia, unspecified (principal); M54.2 Cervicalgia; M79.18 Myalgia, other site
CPT/HCPCS: 99214

== ENCOUNTER → 2024-02-21 11:43 | Outpatient (BNVA) | payer MEDICARE, MEDICAID, SELFPAY ==
[2024-02-21 13:38] VITALS: BP 136/84; BMI 38.7
== END ==
PROVIDERS: PCP Internal Medicine; Visit Provider Anesthesiology Pain Medicine
DX: M54.2 Cervicalgia (principal); M79.18 Myalgia, other site; M54.9 Dorsalgia, unspecified
CPT/HCPCS: 20553; 99214; J1010; J3490

== ENCOUNTER → 2024-04-18 09:07 | Outpatient (BNVA) | payer MEDICARE, MEDICAID, SELFPAY ==
[2024-02-21 13:38] VITALS: BP 136/84; BMI 38.7
== END ==
PROVIDERS: PCP Internal Medicine; Visit Provider Nurse Practitioner Family
DX: L57.8 Other skin changes due to chronic exposure to nonionizing radiation (principal); L81.4 Other melanin hyperpigmentation; L90.5 Scar conditions and fibrosis of skin; Z80.8 Family history of malignant neoplasm of other organs or systems; D48.5 Neoplasm of uncertain behavior of skin
CPT/HCPCS: 11102; 99213

== ENCOUNTER → 2024-04-27 12:39 | Outpatient (BNVA) | payer MEDICARE, MEDICAID, SELFPAY ==
[2024-02-21 13:38] VITALS: BP 136/84; BMI 38.7
== END ==
PROVIDERS: PCP Internal Medicine; Visit Provider Specialist
DX: G81.14 Spastic hemiplegia affecting left nondominant side (principal)
CPT/HCPCS: 64642; J0585; J9999

== ENCOUNTER → 2024-05-01 13:28 | Outpatient (BNVA) | payer MEDICARE, MEDICAID, SELFPAY ==
[2024-02-21 13:38] VITALS: BP 136/84; BMI 38.7
== END ==
PROVIDERS: PCP Internal Medicine; Visit Provider Anesthesiology Pain Medicine
DX: M79.18 Myalgia, other site (principal); M54.9 Dorsalgia, unspecified
CPT/HCPCS: 20553; 99214; J1010; J3490

== ENCOUNTER 2024-06-20 07:27 | Outpatient (CLI) | payer MEDICARE, MEDICAID, SELFPAY ==
[2024-02-21 13:38] VITALS: BP 136/84; BMI 38.7
--- NOTE | 2024-06-20 07:33 | MM_ITS ---
WS: [id number] BILATERAL SCREENING DIGITAL TOMOSYNTHESIS MAMMOGRAM WITH CAD HISTORY: SCREENING COMPARISON: 11/05/2021, 05/02/2020 Bilateral CC and MLO views with tomosynthesis and synthetic mammography submitted. Computer aided detection analyzed. Breast composition: There are scattered areas of fibroglandular density. No suspicious masses, microcalcifications or architectural distortion. MM/MM scr BI tomosynthesis [id number] IMPRESSION: BI-RADS: 1 - Negative. FOLLOW UP: 1 Year Follow-up
== END 2024-06-20 07:28 | disposition home or self-care (01) ==
PROVIDERS: PCP Family Medicine; Visit Provider Family Medicine
DX: Z12.31 Encounter for screening mammogram for malignant neoplasm of breast (principal); R92.323 Mammographic fibroglandular density, bilateral breasts
CPT/HCPCS: 77063; 77067

== ENCOUNTER 2024-07-11 06:05 | Outpatient (CLI) | payer MEDICARE, MEDICAID, SELFPAY ==
[2024-02-21 13:38] VITALS: BP 136/84; BMI 38.7
--- NOTE | 2024-07-11 06:20 | USCV_ITS ---
Stefano Cabezas Age: 44 Gender: F : 1980 Exam Date: 07/11/2024 06:31 Ordering Phys: Alberto Araujo MD Technologist: ALFREDO Exam Location: [facility] [place] Indication: Dyspnea BP: 136 / 84 HR: 67 Rhythm: Sinus Technical Quality: Adequate MEASUREMENTS (Male / Female) Normal Values 2D ECHO LV Diastolic Diameter PLAX 5.2 cm 4.2 - 5.9 / 3.9 - 5.3 cm IVS Diastolic Thickness 0.8 cm 0.6 - 1.0 / 0.6 - 0.9 cm IVS Systolic Thickness 1.1 cm LVPW Diastolic Thickness 0.9 cm 0.6 - 1.0 / 0.6 - 0.9 cm LVPW Systolic Thickness 1.3 cm LVOT Diameter 2.1 cm LV Ejection Fraction 2D Teich 58.3 % LV Ejection Fraction MOD 4C 56.6 % LV Ejection Fraction MOD 2C 53.9 % LV Ejection Fraction 2C AL 54.1 % LA Diameter 2.9 cm RA Systolic Volume 4C AL 28.7 ml RA Systolic Volume 4C MOD 27.1 ml LA Sys Volume AL 27.4 cm cubed LA Sys Volume Index AL 16.4 cm cubed/m squared Aorta at Sinotubular Diameter 2.2 cm IVC Diameter 1.8 cm M-MODE LA Ao Ratio MM 1.4 AV Cusp Separation MM 1.4 cm DOPPLER AV Peak Velocity 118.0 cm/s LVOT Peak Velocity 104.0 cm/s AV Area Cont Eq vti 3.2 cm squared AV Area Cont Eq pk 3.0 cm squared MV Peak Velocity 111.0 cm/s MV Area PHT 4.2 cm squared Mitral E to A Ratio 1.2 TV Peak Velocity 148.0 cm/s TR Peak Velocity 195.0 cm/s TR Peak Gradient 15.2 mmHg TV Peak E Velocity 88.0 cm/s PV Peak Velocity 95.0 cm/s FINDINGS Left Ventricle Normal left ventricular size, systolic function and wall thickness, with no regional wall motion abnormalities. Left ventricular ejection fraction is estimated at 60 %. Normal diastolic function. Right Ventricle The right ventricle is normal in size and function. Right Atrium The right atrium is normal in size. Left Atrium The left atrium is normal in size. Mitral Valve Structurally normal mitral valve without significant stenosis or prolapse. There is no mitral regurgitation. Aortic Valve Structurally normal aortic valve without significant sclerosis or stenosis. There is no aortic regurgitation. Tricuspid Valve Structurally normal tricuspid valve without significant stenosis or regurgitation. Pulmonary artery systolic pressure is normal. Pulmonic Valve Structurally normal pulmonic valve without significant stenosis. There is no pulmonic regurgitation. Pericardium Normal pericardium without effusion. Aorta Normal ascending aorta dimension. IVC The inferior vena cava appears normal. CONCLUSIONS Normal left ventricular size, systolic function and wall thickness, with no regional wall motion abnormalities. Left ventricular ejection fraction is estimated at 60 %. Normal diastolic function. No significant valve abnormalities. There is no pericardial effusion. Right atrial pressure is around 5 mm of mercury. Ayan Espinoza MD (Electronically Signed) Final Date: 15 July 2024 14:32 S
== END 2024-07-11 06:06 | disposition home or self-care (01) ==
PROVIDERS: PCP Family Medicine; Visit Provider Family Medicine
DX: R06.00 Dyspnea, unspecified (principal)
CPT/HCPCS: 93306

== ENCOUNTER → 2024-07-17 10:30 | Outpatient (BNVA) | payer MEDICARE, MEDICAID, SELFPAY ==
[2024-02-21 13:38] VITALS: BP 136/84; BMI 38.7
== END ==
PROVIDERS: PCP Family Medicine; Visit Provider Internal Medicine Cardiovascular Disease
DX: R07.9 Chest pain, unspecified (principal); R94.31 Abnormal electrocardiogram [ECG] [EKG]; I10 Essential (primary) hypertension; R00.0 Tachycardia, unspecified; Z79.82 Long term (current) use of aspirin
CPT/HCPCS: 93005; 99214

== ENCOUNTER → 2024-08-03 13:40 | Outpatient (BNVA) | payer MEDICARE, MEDICAID, SELFPAY ==
[2024-02-21 13:38] VITALS: BP 136/84; BMI 38.7
== END ==
PROVIDERS: PCP Family Medicine; Visit Provider Specialist
DX: G81.14 Spastic hemiplegia affecting left nondominant side (principal)
CPT/HCPCS: 64642; J0585; J9999

== ENCOUNTER → 2024-08-06 12:57 | Outpatient (BNVA) | payer MEDICARE, MEDICAID, SELFPAY ==
[2024-02-21 13:38] VITALS: BP 136/84; BMI 38.7
== END ==
PROVIDERS: PCP Family Medicine; Visit Provider Anesthesiology Pain Medicine
DX: M79.18 Myalgia, other site (principal); M79.10 Myalgia, unspecified site
CPT/HCPCS: 20553; 99214; J1010; J3490

== ENCOUNTER → 2024-10-22 09:39 | Outpatient (BNVA) | payer MEDICARE, MEDICAID, OTHER, SELFPAY ==
[2024-02-21 13:38] VITALS: BP 136/84; BMI 38.7
== END ==
PROVIDERS: PCP Family Medicine; Visit Provider Nurse Practitioner Family
DX: L81.4 Other melanin hyperpigmentation (principal); L57.8 Other skin changes due to chronic exposure to nonionizing radiation; L82.1 Other seborrheic keratosis; L90.5 Scar conditions and fibrosis of skin; Z80.8 Family history of malignant neoplasm of other organs or systems
CPT/HCPCS: 99213

== ENCOUNTER → 2024-11-07 10:52 | Outpatient (BNVA) | payer MEDICARE, MEDICAID, OTHER, SELFPAY ==
[2024-02-21 13:38] VITALS: BP 136/84; BMI 38.7
== END ==
PROVIDERS: PCP Family Medicine; Visit Provider Anesthesiology Pain Medicine
DX: M79.18 Myalgia, other site (principal); M54.9 Dorsalgia, unspecified
CPT/HCPCS: 20553; 99214; J1010; J3490

== ENCOUNTER 2024-11-22 11:40 | Outpatient (RCR) | payer MEDICARE, MEDICAID, SELFPAY ==
[2024-02-21 13:38] VITALS: BP 136/84; BMI 38.7
== END 2024-12-07 23:59 | disposition home or self-care (01) ==
LOC: SPT 11:40
PROVIDERS: PCP Family Medicine; Visit Provider Anesthesiology Pain Medicine
DX: M50.90 Cervical disc disorder, unspecified, unspecified cervical region (principal)
CPT/HCPCS: 64642; 97110; 97161; 99213; J0585; J9999

== ENCOUNTER 2024-12-08 05:00 | Outpatient (RCR) | payer MEDICARE, MEDICAID, SELFPAY ==
[2024-02-21 13:38] VITALS: BP 136/84; BMI 38.7
== END 2025-01-06 23:59 | disposition home or self-care (01) ==
LOC: SPT 05:00
PROVIDERS: PCP Family Medicine; Visit Provider Anesthesiology Pain Medicine
DX: M50.90 Cervical disc disorder, unspecified, unspecified cervical region (principal)
CPT/HCPCS: 97110

== ENCOUNTER → 2024-12-17 13:03 | Outpatient (BNVA) | payer MEDICARE, MEDICAID, SELFPAY ==
[2024-02-21 13:38] VITALS: BP 136/84; BMI 38.7
== END ==
PROVIDERS: PCP Family Medicine; Visit Provider Anesthesiology Pain Medicine
DX: M54.2 Cervicalgia (principal); M54.9 Dorsalgia, unspecified
CPT/HCPCS: 99214

== ENCOUNTER 2024-12-31 09:00 | Outpatient (CLI) | payer MEDICARE, MEDICAID, SELFPAY ==
[2024-02-21 13:38] VITALS: BP 136/84; BMI 38.7
--- NOTE | 2024-12-31 09:08 | MR_ITS ---
WS: [id number] MRI HEAD WITH CONTRAST TECHNIQUE: Sagittal T1, T2 axial, T2 axial FLAIR, axial susceptibility weighted imaging, axial diffusion weighted images, and coronal T2 images were obtained. Pre and post-T1 axial and post T1 coronal images. ADC and FSPGR images. CLINICAL INFORMATION: MENINGLOMA COMPARISON: 08/21/2023 FINDINGS: Previously described enhancing meningioma along the RIGHT planum sphenoidale has increased in size measuring approximately 8.8 x 10.5 x 7.9 mm AP by transverse by craniocaudal compared to 2022 measuring 5.6 x 5.9 x 5.3 mm. This is difficult to visualize on the 2023 examination due to lack of contrast Mild patchy supratentorial white matter changes nonspecific in a patient this age but can be seen with hypertension, diabetes, and migraine headaches. Mild frontal parenchymal volume loss. Tiny chronic lacunar infarct RIGHT cerebellum. Normal vascular flow voids at the skull base. No extra-axial fluid collections. Small retention cyst RIGHT sphenoid sinus. Paranasal sinuses are otherwise well aerated by mucosal thickening in the mastoid air cells. Normal posterior nasopharynx. MR/MR head wo/w con [id number] IMPRESSION: 1. Previously described meningioma along the RIGHT planum sphenoidale has incr eased in size since 2022 described above 2. Small amount of underlying edema seen today. 3. Mild stable supratentorial white matter changes 4. No other acute findings or significant changes
[2024-12-31] MEDS: gadobenate dimeglumine 20 mL vial 14 ML IV (10:16)
== END 2024-12-31 09:01 | disposition home or self-care (01) ==
LOC: RAD 09:01
PROVIDERS: PCP Family Medicine; Visit Provider Family Medicine
DX: D32.9 Benign neoplasm of meninges, unspecified (principal); R90.82 White matter disease, unspecified; R60.9 Edema, unspecified
CPT/HCPCS: 70553; A9577

== ENCOUNTER 2025-01-07 05:00 | Outpatient (RCR) | payer MEDICARE, MEDICAID, SELFPAY ==
[2024-02-21 13:38] VITALS: BP 136/84; BMI 38.7
== END 2025-02-06 23:59 | disposition home or self-care (01) ==
LOC: SPT 05:00
PROVIDERS: PCP Family Medicine; Visit Provider Anesthesiology Pain Medicine
DX: M50.90 Cervical disc disorder, unspecified, unspecified cervical region (principal)
CPT/HCPCS: 97110

== ENCOUNTER → 2025-01-23 10:40 | Outpatient (BNVA) | payer MEDICARE, MEDICAID, SELFPAY ==
[2024-02-21 13:38] VITALS: BP 136/84; BMI 38.7
== END ==
PROVIDERS: PCP Family Medicine; Visit Provider Anesthesiology Pain Medicine
DX: M79.18 Myalgia, other site (principal); M54.2 Cervicalgia; M54.9 Dorsalgia, unspecified
CPT/HCPCS: 20553; 99214; J1010; J3490